=== PATIENT | male | born 1940 | race American Indian/Alaskan Native ===

== ENCOUNTER → 2017-12-08 14:02 | Outpatient (CLI) | payer MEDICARE, SELFPAY ==
--- NOTE | 2017-12-08 14:09 | DI.RAD.S_ITS ---
PROCEDURE: XR LUMBAR SPINE MIN 4V INDICATIONS: Right hip pain and low back pain TECHNIQUE: 5 views of the lumbar spine acquired. COMPARISON: None. FINDINGS: Bones: 5 nonrib-bearing vertebrae are present. There is normal bony alignment with flexion and extension imaging. No vertebral body compression fractures. No suspicious bony lesions. Soft tissues: Overlying bowel gas pattern is normal. No suspicious soft tissue calcifications. Flexion/extension: There is normal range of motion, with preserved normal alignment. IMPRESSION: Moderate degenerative disc disease is present from L2 inferiorly, most pronounced at L3 through S1. Significant spinal and foraminal stenosis would be expected and this may explain right-sided hip pain assuming nerve root impingement with radiculopathy projecting to the right hip. Dictated by: Trevor Peña M.D. on 12/08/2017 at 15:21 Approved by: Trevor Peña M.D. on 12/08/2017 at 15:23
--- NOTE | 2017-12-08 14:09 | DI.RAD.S_ITS ---
PROCEDURE: XR HIP W PEL IF DONE RT 2V INDICATIONS: Right hip pain TECHNIQUE: 4 views of the hip were acquired. COMPARISON: [facility], CR, [id number] W PEL IF PERFORMED, 08/20/2015, 11:48. FINDINGS: Bones: No fractures or dislocations but there is moderate degenerative hip joint osteoarthritis on the right, and only mild such degeneration on the left. No suspicious bony lesions. The visualized pelvic ring appears intact. Soft tissues: No suspicious soft tissue calcifications or masses. IMPRESSION: Asymmetric right greater than left hip joint osteoarthritis, moderate on the right and mild on the left. No trauma found. Dictated by: Trevor Peña M.D. on 12/08/2017 at 15:20 Approved by: Trevor Peña M.D. on 12/08/2017 at 15:21
== END ==
PROVIDERS: Family Provider Physician Assistant; PCP Physician Assistant; Visit Provider Physician Assistant
DX: M16.0 Bilateral primary osteoarthritis of hip (principal); M51.36 Other intervertebral disc degeneration, lumbar region; M51.37 Other intervertebral disc degeneration, lumbosacral region; M48.061 Spinal stenosis, lumbar region without neurogenic claudication; M99.73 Connective tissue and disc stenosis of intervertebral foramina of lumbar region
CPT/HCPCS: 72110; 73502

== ENCOUNTER → 2018-01-08 17:06 | Outpatient (CLI) | payer MEDICARE, SELFPAY ==
--- NOTE | 2018-01-08 17:09 | DI.MRI.S_ITS ---
PROCEDURE: MR LUMBAR SPINE WO CON INDICATIONS: Low back pain radiating into R hip - Abnormal Xray LS spine TECHNIQUE: Noncontrast sagittal T1 spin echo and T2 fast echo, sagittal STIR, axial T1 and T2 fast spin echo through the lumbar spine. In cases with scoliosis, additional coronal T2 fast spin echo may be performed. COMPARISON: [facility], CR, XR LUMBAR SPINE MIN 4V, 12/08/2017, 13:53. FINDINGS: Image quality: Excellent. Alignment and Curvature: There is straightening of normal lumbar curvature. There is trace retrolithesis of L3 on L4, L4 on L5 and L5 on S1. Bone Marrow: Marrow is of normal overall signal. No acute vertebral body compression fractures. Prominent anterior osteophytes are present L2, L3, L4. Spinal Cord: Conus medullaris terminates at the L1 level. Visualized cord demonstrates normal signal and size. Paraspinous Soft Tissues: No paravertebral masses. Multiple T2 hyperintensities are present within the kidneys bilaterally, consistent with cysts, as well as parapelvic cysts. Moderate to severe dessication is present throughout the lumbar spine, most notable at L3-4, L4-5. L1-L2: Mild disc bulge without spinal stenosis. Mild facet and ligamentum flavum hypertrophy. Mild bilateral foraminal narrowing. L2-L3: Mild disc bulge including a right foraminal component. There is no spinal stenosis. Mild facet and ligamentum flavum hypertrophy. Mild bilateral foraminal narrowing. L3-L4: Mild disc bulge with mild to moderate spinal stenosis. There is moderate to severe right and moderate left foraminal narrowing with facet hypertrophy. L4-L5: Mild disc bulge with mild spinal stenosis. There is severe bilateral foraminal narrowing, right greater than left with facet and ligamentum flavum hypertrophy. L5-S1: Mild disc bulge including a right foraminal component. No spinal stenosis. There is severe bilateral foraminal narrowing with mild nerve root flattening bilaterally. Facet hypertrophy is present. IMPRESSION: 1. Multilevel disc bulges. 2. Multilevel spinal stenosis possible L3-4 secondary to disc bulge with contributing affective retrolisthesis. 3. Multilevel prominent foraminal narrowing severe at L4-5. This is predominantly secondary to facet arthropathy with contributing effect of retrolisthesis. Dictated by: Silvia Mosley M.D. on 01/11/2018 at 11:15 Approved by: Silvia Mosley M.D. on 01/11/2018 at 11:53
== END ==
PROVIDERS: Family Provider Physician Assistant; PCP Physician Assistant; Visit Provider Physician Assistant
DX: M54.5 Low back pain (principal); M51.26 Other intervertebral disc displacement, lumbar region; M48.061 Spinal stenosis, lumbar region without neurogenic claudication
CPT/HCPCS: 72148

== ENCOUNTER → 2018-06-14 07:09 | Outpatient (CLI) | payer MEDICARE, SELFPAY ==
[2018-06-14 08:51] LABS: Alanine Aminotransferase 84 IU/L (21-72); Albumin 4.4 g/dL (3.5-5.0); Albumin Globulin Ratio 1.4 (1.0-2.8); Alkaline Phosphatase 56 U/L (38-126); Aspartate Aminotransferase 58 IU/L (17-59); BUN Creatinine Ratio 17.5 (6-22); Bilirubin Total 0.8 mg/dL (0.2-1.3); Blood Urea Nitrogen 14 mg/dL (9-20); Calcium 9.2 mg/dL (8.4-10.2); Carbon Dioxide 25 mmol/L (22-32); Chloride 103 mmol/L (98-107); Cholesterol 134 mg/dL (140-199); Estimated Glomerular Filt Rate > 60.0 mL/min (>60); Globulin 3.2 g/dL (1.7-4.1); Glucose 88 mg/dL (80-110); HDL Cholesterol 23 mg/dL (40-60); HEMOLYSIS < 15 (0-50); LDL Cholesterol Calculated 41 mg/dL (<100); Potassium 3.9 mmol/L (3.4-5.1); Sodium 142 mmol/L (137-145); Total Protein 7.6 g/dL (6.3-8.2); Triglycerides 349 mg/dL (35-150)
== END ==
PROVIDERS: PCP Physician Assistant; Visit Provider Physician Assistant
DX: E78.2 Mixed hyperlipidemia (principal); I10 Essential (primary) hypertension
CPT/HCPCS: 36415; 80053; 80061

== ENCOUNTER → 2018-11-22 06:48 | Outpatient (CLI) | payer MEDICARE, SELFPAY ==
[2018-11-22 08:52] LABS: Alanine Aminotransferase 122 IU/L (21-72); Albumin 4.2 g/dL (3.5-5.0); Albumin Globulin Ratio 1.6 (1.0-2.8); Alkaline Phosphatase 52 U/L (38-126); Aspartate Aminotransferase 71 IU/L (17-59); BUN Creatinine Ratio 12.2 (6-22); Bilirubin Total 0.9 mg/dL (0.2-1.3); Blood Urea Nitrogen 11 mg/dL (9-20); Calcium 9.4 mg/dL (8.4-10.2); Carbon Dioxide 28 mmol/L (22-32); Chloride 103 mmol/L (98-107); Cholesterol 132 mg/dL (140-199); Estimated Glomerular Filt Rate > 60.0 mL/min (>60); Globulin 2.7 g/dL (1.7-4.1); Glucose 95 mg/dL (80-110); HDL Cholesterol 23 mg/dL (40-60); HEMOLYSIS < 15 (0-50); LDL Cholesterol Calculated 43 mg/dL (<100); Potassium 4.2 mmol/L (3.4-5.1); Sodium 140 mmol/L (137-145); Total Protein 6.9 g/dL (6.3-8.2); Triglycerides 331 mg/dL (35-150)
[2018-11-22 10:23] LABS: Creatinine Urine Random 204.6 mg/dL
[2018-11-22 10:27] LABS: Microalbumi Creatinin Ratio Ur 17.1 ug/mg CR (<30); Microalbumin Urine Random 3.5 mg/dL (0-1.6)
== END ==
PROVIDERS: PCP Physician Assistant; Visit Provider Physician Assistant
DX: E78.1 Pure hyperglyceridemia (principal); I10 Essential (primary) hypertension
CPT/HCPCS: 36415; 80053; 80061; 82043; 82570

== ENCOUNTER → 2018-12-23 08:43 | Outpatient (CLI) | payer MEDICARE, SELFPAY ==
--- NOTE | 2018-12-23 08:49 | DI.RAD.S_ITS ---
PROCEDURE: XR CHEST 2V INDICATIONS: right sided back pain - persistant TECHNIQUE: 2 views of the chest were acquired. COMPARISON: [facility], CHEST 1 VIEW, 10/29/2012, 16:17. [facility], CHEST 2 VIEW, 10/14/2011, 8:27. FINDINGS: Surgical changes and devices: None. Lungs and pleura: Lungs are clear. No pleural effusions or pneumothorax. Mediastinum: Mediastinal contours are normal. Heart size is normal. Bones and chest wall: No suspicious bony abnormalities. Soft tissues appear unremarkable. IMPRESSION: Normal for age. Source of pain is not seen. Dictated by: Trevor Peña M.D. on 12/23/2018 at 10:22 Approved by: Trevor Peña M.D. on 12/23/2018 at 10:22
--- NOTE | 2018-12-23 08:49 | DI.RAD.S_ITS ---
PROCEDURE: XR THORACIC SPINE 3V INDICATIONS: right lateral thoracic pain just distal to scapula TECHNIQUE: 3 views of the thoracic spine were acquired. COMPARISON: [facility], CR, CERVICAL SPINE 2 OR 3 VIEWS, 10/27/2016, 7:27. [facility], CR, XR CERVICAL SPINE 2 OR 3 VIEWS, 10/14/2017, 8:41. [facility], CR, XR CHEST 2V, 12/23/2018, 8:53. FINDINGS: Bones: No fractures or dislocations. No suspicious bony lesions. 12 pairs of ribs are noted, and appear intact where visualized. There is moderate degenerative disc disease along the thoracic spine but no sign of compression fracture or subluxation. Soft tissues: No paravertebral stripe thickening. IMPRESSION: Moderate thoracic spine chronic appearing degenerative disc disease and facet osteoarthritis, with no specific site of acute abnormality that would indicate source of new pain. Depending on clinical status followup by MR scanning may be warranted. Dictated by: Trevor Peña M.D. on 12/23/2018 at 10:20 Approved by: Trevor Peña M.D. on 12/23/2018 at 10:22
== END ==
PROVIDERS: PCP Physician Assistant; Visit Provider Physician Assistant
DX: M54.9 Dorsalgia, unspecified (principal); M51.34 Other intervertebral disc degeneration, thoracic region; M47.814 Spondylosis without myelopathy or radiculopathy, thoracic region
CPT/HCPCS: 71046; 72072

== ENCOUNTER → 2019-04-20 07:02 | Outpatient (CLI) | payer MEDICARE, SELFPAY ==
[2019-04-20 08:39] LABS: Add Manual Diff / Slide Review NO; Basophils Absolute Auto 0 /uL (0-100); Basophils Percent Auto 0.4 % (0-2); Eosinophils Absolute Auto 100 /uL (0-450); Eosinophils Percent Auto 1.7 % (2-4); Hematocrit 40.9 % (41-53); Hemoglobin 14.3 g/dL (13.5-17.5); Lymphocytes Absolute Auto 2600 /uL (1100-4500); Lymphocytes Percent Auto 53.3 % (25-40); Mean Corpuscular HGB Conc 34.9 % (30-36); Mean Corpuscular Hemoglobin 32.1 PG (26-34); Mean Corpuscular Volume 91.9 fL (80-100); Monocytes Absolute Auto 500 /uL (0-900); Neutrophils Absolute Auto 1700 /uL (1500-7000); Neutrophils Percent Auto 33.6 % (50-75); Platelet Count 166 X10^3/uL (150-400); Red Blood Cell Count 4.45 X10^6/uL (4.5-5.9); Red Cell Distribution Width 14.5 % (11.6-14.8)
[2019-04-20 09:41] LABS: Alanine Aminotransferase 87 IU/L (21-72); Albumin 4.2 g/dL (3.5-5.0); Albumin Globulin Ratio 1.4 (1.0-2.8); Alkaline Phosphatase 58 U/L (38-126); Aspartate Aminotransferase 58 IU/L (17-59); Bilirubin Total 0.8 mg/dL (0.2-1.3); Bilirubin Unconjugated 0.6 mg/dL (0.0-1.1); Cholesterol 105 mg/dL (140-199); HDL Cholesterol 22 mg/dL (40-60); HEMOLYSIS < 15 (0-50); LDL Cholesterol Calculated 29 mg/dL (<100); Total Protein 7.2 g/dL (6.3-8.2); Triglycerides 269 mg/dL (35-150)
[2019-04-20 09:45] LABS: Creatinine Urine Random 193.5 mg/dL; Microalbumi Creatinin Ratio Ur 10.3 ug/mg CR (<30)
== END ==
PROVIDERS: PCP Physician Assistant; Visit Provider Physician Assistant
DX: E78.1 Pure hyperglyceridemia (principal); I10 Essential (primary) hypertension; R74.8 Abnormal levels of other serum enzymes; R79.89 Other specified abnormal findings of blood chemistry
CPT/HCPCS: 36415; 80061; 80076; 82043; 82570; 85025

== ENCOUNTER → 2019-06-21 07:38 | Outpatient (CLI) | payer MEDICARE, SELFPAY ==
[2019-06-21 09:23] LABS: Alanine Aminotransferase 97 IU/L (<50); Albumin 4.3 g/dL (3.5-5.0); Albumin Globulin Ratio 1.3 (1.0-2.8); Alkaline Phosphatase 59 U/L (38-126); Aspartate Aminotransferase 65 IU/L (17-59); BUN Creatinine Ratio 16.7 (6-22); Bilirubin Total 0.8 mg/dL (0.2-1.3); Blood Urea Nitrogen 15 mg/dL (9-20); Calcium 9.5 mg/dL (8.4-10.2); Carbon Dioxide 28 mmol/L (22-32); Chloride 102 mmol/L (98-107); Cholesterol 149 mg/dL (140-199); Estimated Glomerular Filt Rate > 60.0 mL/min (>60); Globulin 3.4 g/dL (1.7-4.1); Glucose 88 mg/dL (80-110); HDL Cholesterol 23 mg/dL (40-60); HEMOLYSIS < 15 (0-50); LDL Cholesterol Calculated 62 mg/dL (<100); Potassium 3.9 mmol/L (3.4-5.1); Sodium 138 mmol/L (137-145); Total Protein 7.7 g/dL (6.3-8.2); Triglycerides 321 mg/dL (35-150)
== END ==
PROVIDERS: PCP Physician Assistant; Visit Provider Physician Assistant
DX: E78.1 Pure hyperglyceridemia (principal); I10 Essential (primary) hypertension
CPT/HCPCS: 36415; 80053; 80061

== ENCOUNTER → 2020-03-15 07:08 | Outpatient (CLI) | payer MEDICARE, SELFPAY ==
[2020-03-15 08:43] LABS: Alanine Aminotransferase 115 IU/L (<50); Albumin 4.1 g/dL (3.5-5.0); Albumin Globulin Ratio 1.4 (1.0-2.8); Alkaline Phosphatase 57 U/L (38-126); Aspartate Aminotransferase 75 IU/L (17-59); BUN Creatinine Ratio 16.3 (6-22); Bilirubin Total 0.9 mg/dL (0.2-1.3); Blood Urea Nitrogen 15 mg/dL (9-20); Calcium 9.3 mg/dL (8.4-10.2); Carbon Dioxide 26 mmol/L (22-32); Chloride 106 mmol/L (98-107); Cholesterol 118 mg/dL (140-199); Estimated Glomerular Filt Rate > 60.0 mL/min (>60); Globulin 2.9 g/dL (1.7-4.1); Glucose 89 mg/dL (80-110); HDL Cholesterol 21 mg/dL (40-60); HEMOLYSIS < 15 (0-50); LDL Cholesterol Calculated 32 mg/dL (<100); Potassium 4.1 mmol/L (3.4-5.1); Sodium 140 mmol/L (137-145); Triglycerides 323 mg/dL (35-150)
[2020-03-15 09:04] LABS: Free T3, Triiodothyronine Free 3.32 pg/mL (2.77-5.27)
[2020-03-15 09:13] LABS: Prostate Specific Antigen 0.521 ng/mL (0.10-4.00)
[2020-03-15 09:18] LABS: Thyroid Stimulating Hormone 3.39 uIU/mL (0.47-4.68)
[2020-03-15 09:20] LABS: Creatinine Urine Random 210.7 mg/dL
[2020-03-15 09:24] LABS: Microalbumi Creatinin Ratio Ur 14.2 ug/mg CR (<30)
== END ==
PROVIDERS: PCP Nurse Practitioner; Referring Provider Nurse Practitioner; Visit Provider Nurse Practitioner
DX: E78.1 Pure hyperglyceridemia (principal); G47.33 Obstructive sleep apnea (adult) (pediatric); I10 Essential (primary) hypertension; N40.0 Benign prostatic hyperplasia without lower urinary tract symptoms; Z79.899 Other long term (current) drug therapy
CPT/HCPCS: 36415; 80053; 80061; 82043; 82570; 84153; 84439; 84443; 84481

== ENCOUNTER → 2020-06-05 07:12 | Outpatient (CLI) | payer MEDICARE, SELFPAY ==
[2020-06-05 09:09] LABS: Alanine Aminotransferase 79 IU/L (<50); Albumin 4.1 g/dL (3.5-5.0); Albumin Globulin Ratio 1.2 (1.0-2.8); Alkaline Phosphatase 58 U/L (38-126); Aspartate Aminotransferase 51 IU/L (17-59); Bilirubin Total 0.6 mg/dL (0.2-1.3); Bilirubin Unconjugated 0.5 mg/dL (0.0-1.1); Cholesterol 138 mg/dL (140-199); Globulin 3.4 g/dL (1.7-4.1); HDL Cholesterol 23 mg/dL (40-60); HEMOLYSIS < 15 (0-50); LDL Cholesterol Calculated 59 mg/dL (<100); Total Protein 7.5 g/dL (6.3-8.2); Triglycerides 282 mg/dL (35-150)
[2020-06-05 09:22] LABS: Creatinine Urine Random 215.2 mg/dL
[2020-06-05 09:27] LABS: Microalbumi Creatinin Ratio Ur 14.8 ug/mg CR (<30); Microalbumin Urine Random 3.2 mg/dL (0-1.6)
== END ==
PROVIDERS: PCP Nurse Practitioner; Referring Provider Nurse Practitioner; Visit Provider Nurse Practitioner
DX: B35.1 Tinea unguium (principal); I10 Essential (primary) hypertension; Z79.899 Other long term (current) drug therapy
CPT/HCPCS: 36415; 80061; 80076; 82043; 82570

== ENCOUNTER → 2020-06-19 15:23 | Outpatient (CLI) | payer MEDICARE, SELFPAY ==
--- NOTE | 2020-06-19 15:25 | DI.RAD.S_ITS ---
PROCEDURE: XR KNEE LT 3V INDICATIONS: left knee pain TECHNIQUE: 3 views of the knee were acquired. COMPARISON: [facility], , KNEE 3V RIGHT, 08/04/2014, 12:15. FINDINGS: Bones: No fractures or dislocations. No suspicious bony lesions. Knee joint space narrowing is prominent at the medial compartment where near [id number] articulation is present. It is mild to moderate at the patellofemoral joint, each facet. It is minimal at the lateral compartment. Soft tissues: No joint effusion. No suspicious soft tissue calcifications. IMPRESSION: Tricompartmental knee joint osteoarthritis near severe at the medial compartment at the left knee. No effusion or loose body is found. Dictated by: Trevor Peña M.D. on 06/19/2020 at 16:23 Approved by: Trevor Peña M.D. on 06/19/2020 at 16:24
== END ==
PROVIDERS: PCP Nurse Practitioner; Referring Provider Registered Nurse; Visit Provider Registered Nurse
DX: M25.562 Pain in left knee (principal); M17.12 Unilateral primary osteoarthritis, left knee
CPT/HCPCS: 73562

== ENCOUNTER → 2020-09-12 07:11 | Outpatient (CLI) | payer MEDICARE, SELFPAY ==
[2020-09-12 08:52] LABS: Alanine Aminotransferase 51 IU/L (<50); Albumin Globulin Ratio 1.4 (1.0-2.8); Alkaline Phosphatase 52 U/L (38-126); Aspartate Aminotransferase 40 IU/L (17-59); BUN Creatinine Ratio 19.1 (6-22); Bilirubin Total 0.5 mg/dL (0.2-1.3); Blood Urea Nitrogen 17 mg/dL (9-20); Calcium 9.1 mg/dL (8.4-10.2); Carbon Dioxide 27 mmol/L (22-32); Chloride 105 mmol/L (98-107); Cholesterol 94 mg/dL (140-199); Estimated Glomerular Filt Rate > 60.0 mL/min (>60); Globulin 2.9 g/dL (1.7-4.1); Glucose 105 mg/dL (80-110); HDL Cholesterol 22 mg/dL (40-60); HEMOLYSIS < 15 (0-50); LDL Cholesterol Calculated 26 mg/dL (<100); Potassium 3.8 mmol/L (3.4-5.1); Sodium 138 mmol/L (137-145); Total Protein 6.9 g/dL (6.3-8.2); Triglycerides 231 mg/dL (35-150)
== END ==
PROVIDERS: PCP Nurse Practitioner; Referring Provider Nurse Practitioner; Visit Provider Nurse Practitioner
DX: E78.1 Pure hyperglyceridemia (principal); I10 Essential (primary) hypertension; R79.89 Other specified abnormal findings of blood chemistry; Z79.899 Other long term (current) drug therapy
CPT/HCPCS: 36415; 80053; 80061

== ENCOUNTER → 2020-10-08 13:46 | Outpatient (CLI) | payer MEDICARE, SELFPAY ==
[2020-10-08 13:56] LABS: Bacteria Urine None Seen; RBC Urine None Seen (0-5/HPF); WBC Urine None Seen (0-5/HPF)
[2020-10-08 14:17] LABS: Add Manual Diff / Slide Review NO; Basophils Absolute Auto 0 /uL (0-100); Basophils Percent Auto 0.9 % (0-2); Eosinophils Absolute Auto 100 /uL (0-450); Eosinophils Percent Auto 2.4 % (2-4); Hematocrit 39.1 % (41-53); Hemoglobin 13.7 g/dL (13.5-17.5); Lymphocytes Absolute Auto 2000 /uL (1100-4500); Lymphocytes Percent Auto 39.2 % (25-40); Mean Corpuscular Volume 91.3 fL (80-100); Monocytes Absolute Auto 700 /uL (0-900); Monocytes Percent Auto 12.9 % (3-14); Neutrophils Absolute Auto 2300 /uL (1500-7000); Neutrophils Percent Auto 44.6 % (50-75); Platelet Count 175 X10^3/uL (150-400); Red Blood Cell Count 4.29 X10^6/uL (4.5-5.9); Red Cell Distribution Width 14.7 % (11.6-14.8); White Blood Cell Count 5.1 X10^3/uL (4.5-11.0)
[2020-10-08 14:21] LABS: Appearance Urine UA CLEAR; Bilirubin Urine UA NEGATIVE (NEGATIVE); Color Urine UA YELLOW; Glucose Urine UA NEGATIVE (Negative); Ketones Urine UA NEGATIVE (NEGATIVE); Leukocyte Esterase Urine UA NEGATIVE (NEGATIVE); Nitrite Urine UA NEGATIVE (Negative); Occult Blood Urine UA NEGATIVE (Negative); Protein Urine UA NEGATIVE (Negative); Urobilinogen Urine UA 0.2 E.U./dL (0.2)
[2020-10-08 14:37] LABS: Culture Indicated Urine Cult Not Indicated; Urine Comments Microscopic Normal
[2020-10-08 14:55] LABS: Alanine Aminotransferase 48 IU/L (<50); Albumin 4.2 g/dL (3.5-5.0); Albumin Globulin Ratio 1.5 (1.0-2.8); Alkaline Phosphatase 54 U/L (38-126); Aspartate Aminotransferase 39 IU/L (17-59); Bilirubin Total 0.6 mg/dL (0.2-1.3); Bilirubin Unconjugated 0.7 mg/dL (0.0-1.1); Cholesterol 89 mg/dL (140-199); Globulin 2.8 g/dL (1.7-4.1); HDL Cholesterol 21 mg/dL (40-60); HEMOLYSIS < 15 (0-50); LDL Cholesterol Calculated -2 mg/dL (<100); Triglycerides 351 mg/dL (35-150)
[2020-10-08 14:59] LABS: Alanine Aminotransferase 48 IU/L (<50); Albumin 4.2 g/dL (3.5-5.0); Albumin Globulin Ratio 1.5 (1.0-2.8); Alkaline Phosphatase 53 U/L (38-126); Aspartate Aminotransferase 40 IU/L (17-59); BUN Creatinine Ratio 18.6 (6-22); Bilirubin Total 0.6 mg/dL (0.2-1.3); Blood Urea Nitrogen 16 mg/dL (9-20); Calcium 9.4 mg/dL (8.4-10.2); Carbon Dioxide 27 mmol/L (22-32); Chloride 104 mmol/L (98-107); Estimated Glomerular Filt Rate > 60.0 mL/min (>60); Globulin 2.8 g/dL (1.7-4.1); Glucose 94 mg/dL (80-110); HEMOLYSIS < 15 (0-50); Potassium 4.3 mmol/L (3.4-5.1); Sodium 138 mmol/L (137-145)
== END ==
PROVIDERS: PCP Nurse Practitioner; Referring Provider Registered Nurse; Visit Provider Registered Nurse
DX: M54.5 Low back pain (principal); R79.89 Other specified abnormal findings of blood chemistry; R35.0 Frequency of micturition; E78.1 Pure hyperglyceridemia; Z79.899 Other long term (current) drug therapy
CPT/HCPCS: 36415; 80053; 80061; 80076; 81001; 85025

== ENCOUNTER → 2020-10-10 07:06 | Outpatient (CLI) | payer MEDICARE, SELFPAY ==
--- NOTE | 2020-10-10 07:07 | DI.US.S_ITS ---
PROCEDURE: US RENAL COMPLETE INDICATIONS: LOWER RIGHT BACK PAIN TECHNIQUE: Real-time scanning was performed of the kidneys and bladder, with image documentation. COMPARISON: None. FINDINGS: Kidneys: Right kidney not well seen secondary to body habitus.. Right kidney measures 12.7 cm long; left kidney measures 13.1 cm long. Right renal cortical thickness is 1.3 cm; left renal cortical thickness is 1.5 cm. Renal cortical echotexture is normal. Mild right hydronephrosis. Moderate left hydronephrosis. No renal calculi. Left renal cyst measuring 2.8 x 2.2 x 3.7 cm and 1.8 x 1.3 x 2.3 cm, with simple appearance. No suspicious solid mass lesions. Bladder: Bladder was not distended at the time of the examination therefore not evaluated Miscellaneous: No free pelvic fluid. IMPRESSION: Mild right and moderate left hydronephrosis No sonographically visible renal calculus. CT KUB could be performed as clinically necessary. Simple appearing left renal cyst Dictated by: Chinedu Gutierrez M.D. on 10/10/2020 at 10:23 Approved by: Chinedu Gutierrez M.D. on 10/10/2020 at 10:29
== END ==
PROVIDERS: PCP Nurse Practitioner; Referring Provider Registered Nurse; Visit Provider Registered Nurse
DX: N13.30 Unspecified hydronephrosis (principal); N28.1 Cyst of kidney, acquired
CPT/HCPCS: 76770

== ENCOUNTER → 2020-10-11 11:59 | Outpatient (CLI) | payer MEDICARE, SELFPAY ==
--- NOTE | 2020-10-11 12:16 | DI.CT.S_ITS ---
PROCEDURE: CT KIDNEY URETER BLADDER (KUB) INDICATIONS: f/u abnormal US TECHNIQUE: Noncontrast 5 mm thick sections acquired from the diaphragms to the symphysis. 5 mm thick coronal and sagittal reformats were then performed. For radiation dose reduction, the following was used: automated exposure control, adjustment of mA and/or kV according to patient size. COMPARISON: [facility], , US RENAL COMPLETE, 10/10/2020, 7:27. FINDINGS: Image quality: Excellent. Lung bases: Right middle lobe and lingular atelectasis. Heart size is normal. Small hiatal hernia. Urinary system: Bilateral hydronephrosis, moderate on the left and mild on the right. Ureters are normal in caliber. The CT findings are suspicious for ureterovesical junction obstruction. Small nonobstructive renal calculi are seen in left kidney. There is 9 mm calcification in the superior pole of the right kidney. Both ureters appear non-dilated throughout their expected courses. Bladder wall thickness is normal; no calcified bladder stones. Other solid organs: Liver is normal in size. Gallbladder contains gallstones. Pancreas is normal in contours. Spleen is normal in size. No adrenal nodules. Peritoneum and bowel: Unenhanced bowel loops demonstrate normal wall thickness and caliber. Scattered colonic diverticula. No diverticulitis. Moderate amount of stool in colon. Normal appendix. No free fluid or air. Nodes and vessels: No retroperitoneal or mesenteric adenopathy by size criteria. Aorta and inferior vena cava are normal in caliber. Abdominal wall: No ventral hernias. Pelvis: No free pelvic fluid. No inguinal hernias or adenopathy. Small inguinal hernias are present bilaterally with fatty john, likely reactive. Bones: No suspicious bony lesions. No vertebral body compression fractures. Degenerative changes in lumbar spine. IMPRESSION: 1. 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 Recommend urological consultation. Radionuclide renogram may be helpful. 2. Nonobstructive renal calculi in left kidney. 3. There is a 9 mm cortical calcification in right kidney. 4. Cholelithiasis. 5. Diverticulosis without diverticulitis. Dictated by: Yu Norris M.D. on 10/11/2020 at 12:45 Approved by: Yu Norris M.D. on 10/11/2020 at 12:51
== END ==
PROVIDERS: PCP Nurse Practitioner; Referring Provider Nurse Practitioner; Visit Provider Nurse Practitioner
DX: R93.89 Abnormal findings on diagnostic imaging of other specified body structures (principal); N20.0 Calculus of kidney; K80.20 Calculus of gallbladder without cholecystitis without obstruction; K57.90 Diverticulosis of intestine, part unspecified, without perforation or abscess without bleeding
CPT/HCPCS: 74176

== ENCOUNTER → 2020-10-24 08:13 | Outpatient (CLI) | payer MEDICARE, SELFPAY ==
--- NOTE | 2020-10-24 | DI.NM.S_ITS ---
PROCEDURE: NM RENAL FUNCTION W LASIX RADIOPHARMACEUTICAL: 10.1 mCi Tc-99m MAG3 IV and 40 mg furosemide IV. INDICATIONS: Unspecified hydronephrosis TECHNIQUE: The patient was hydrated orally before the examination was begun. After intravenous administration of Tc-99m MAG3, posterior abdominal radionuclide angiogram and sequential (1 minute each frame) renal images were obtained. A time-activity curve for each kidney was generated and analyzed. To evaluate for obstruction, the patient was given 40 mg furosemide via slow intravenous injection after the start of the examination. Sequential images were obtained for up to an additional 20 minutes. COMPARISON: [facility], MR, MR LUMBAR SPINE WO CON, 01/08/2018, 17:15. [facility], US, US RENAL COMPLETE, 10/10/2020, 7:27. [facility], CT, CT KIDNEY URETER BLADDER (KUB), 10/11/2020, 12:14. FINDINGS: Perfusion: There is normal vascular flow to both kidneys. Morphology: Both kidneys are normal in size and shape. Renal pelvis is moderately dilated bilaterally. The ureters and bladder fill with tracer, and appear normal. Function: Both kidneys demonstrate mildly delayed cortical tracer uptake, with [id number] activity ranging from 8.5 minutes for right kidney and 8.0 minutes for left kidney (normal values are 3-5 minutes). The right kidney contributes 55% of total renal function. The left kidney contributes 45% of total renal function. Lasix stimulation: On pre-Lasix activity curve, the calculated T1/2 for the right kidney is 14 minutes and the T1/2 for the left kidney is 11 minutes. After diuretic administration, there is prompt clearance of tracer activity from the renal collecting systems in both kidneys initially with quick tapering of tracer clearance. The half-time of emptying of tracer activity from the right pelvicaliceal system (T1/2) is 8 minutes (based on the slope of the activity curve). The half-time of emptying from the left pe T1/2 lvicaliceal system (T1/2) is 6 minutes. Normal emptying half-times are less than 10 minutes; borderline ranges are from 10 to 20 minutes. IMPRESSION: 1. Moderate hydronephrosis bilaterally. Activities can be seen within ureters fairly early. Ureters are normal in caliber. 2. There is mildly decreased renal function bilaterally with slightly delayed cortical uptake and excretion with mildly prolonged cortical accumulation of tracer activity. 3. Right kidney contributes 55% of total renal function and left kidney contributes 45% of total renal function. 4. Borderline delayed emptying of urinary activity from the renal pelvis bilaterally, consistent with mild degree of UPJ obstruction. Dictated by: uY Norris M.D. on 10/24/2020 at 11:07 Approved by: Yu Norris M.D. on 10/24/2020 at 11:58
== END ==
PROVIDERS: PCP Nurse Practitioner; Referring Provider Student in an Organized Health Care Education/Training Program; Visit Provider Student in an Organized Health Care Education/Training Program
DX: N13.30 Unspecified hydronephrosis (principal)
CPT/HCPCS: 78708; A9562

== ENCOUNTER → 2021-02-01 08:36 | Outpatient (CLI) | payer MEDICARE, SELFPAY ==
[2021-02-01 10:39] LABS: COVID19 -Nasal RAPID Negative (Negative)
== END ==
PROVIDERS: PCP Nurse Practitioner; Visit Provider Surgery
DX: Z20.822 Contact with and (suspected) exposure to COVID-19 (principal)
CPT/HCPCS: 87635; C9803

== ENCOUNTER 2021-02-04 12:43 | Day surgery (SDC) | payer MEDICARE, SELFPAY ==
--- NOTE | 2021-02-04 | PATH_ITS ---
[facility] Accession Number: [id number] . 01 Material submitted: . colon - ASCENDING COLON POLYP . 01 Clinical history: . SDC . 02 Diagnosis: Ascending Colon Polyp, Biopsy: Tubular adenoma. MRV 02/07/2021 1053 Local . 02 Electronically signed: . Jaycob Mancilla MD, PhD, Pathologist NPI- [id number] . 01 Gross description: . ASCENDING COLON POLYP: Received in formalin is 1 fragment(s) of chavez, soft tissue measuring 1.0 x 0.3 x 0.2 cm submitted entirely in 1 cassette(s) /TAMARA 02/05/2021 0225 Local . 02 Pathologist provided ICD-10: D12.2 . 02 CPT . 039213 Performed at: 01 [facility] [address] [id number] MD Matthew Mcgovern MD Phone: [phone] Performed at: 02 [facility] [place] [address] [place], [place] [id number] MD Mireya Ayala MD Phone: [phone]
[2021-02-04 13:09] VITALS: BP 119/75; PULSE 65; RESP 16; TEMP 36.2; O2SAT 99; BMI 36.2
[2021-02-04] MEDS: LACTATED RINGERS 1,000 ML 42 ML IV (13:21)
--- NOTE | 2021-02-04 13:28 | PM.HP.1 ---
History of Present Illness History of Present Illness Date Patient Seen: 02/04/21 Time Patient Seen: 13:28 Chief complaint: [facility] Narrative: screening colon cancer. this is his 3rd colonoscopy and polyps were found last time. Patient History Medical History Atrial fibrillation (~2013) Benign prostatic hyperplasia (10/13/11) Carpal tunnel syndrome (Unknown) Cervical spinal stenosis Chickenpox (Unknown) Elevated LFTs High triglycerides (Unknown) History of colonic polyps (10/13/11) Hypertension (Unknown) Left knee pain Macular degeneration Measles (Unknown) Mumps (Unknown) Nightmares Obstructive sleep apnea (08/09/14) Osteoarthritis (Unknown) 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) Rheumatic fever (Unknown) Right-sided thoracic back pain Shoulder pain (Unknown) Spinal stenosis (Unknown) Toenail fungus Surgical History History of carpal tunnel repair History of cataract removal with insertion of prosthetic lens History of cervical discectomy (10/2016) Status post arthroscopy Family & Social History Family History Brother CAD (coronary artery disease) Obesity Social History: household members spouse Tobacco & Substance use: Smoking Status Former smoker alcohol intake current alcohol intake frequency holiday/special occasion Substance Use Type does not use Meds Home Medications and Allergies Home Medications Medication Instructions Recorded Confirmed Type omega-3 fatty acids 1,000 mg 1,000 mg PO TID cap 02/03/20 02/04/21 History capsule vitamins A,C,L-eopy-bncxqr 14,320 1 cap PO QAM AND QPM 02/03/20 01/29/21 History unit-226 mg-200 unit capsule (PreserVision AREDS) doxazosin 2 mg tablet 2 mg PO HS #90 tab 08/07/20 02/04/21 Rx lisinopril 10 1 tab PO QDAY #90 tab 08/07/20 01/29/21 Rx mg-hydrochlorothiazide 12.5 mg tablet terbinafine HCl 250 mg tablet 250 mg PO DAILY #90 tab 09/21/20 01/29/21 Rx metoprolol tartrate 50 mg tablet 50 mg PO BID #180 tab 11/12/20 02/04/21 Rx rosuvastatin 5 mg tablet (Crestor) 5 mg PO DAILY #90 tab 01/14/21 02/04/21 Rx Allergies Allergy/AdvReac Type Severity Reaction Status Date / Time No Known Drug Allergies Allergy Verified 02/04/21 13:23 Review of Systems Review of Systems ROS: Yes All systems reviewed with the patient and are negative except as otherwise documented Exam Vital Signs (past 8 hours): - 02/04/21 13:09 Temperature 97.1 F L Pulse Rate 65 Respiratory Rate 16 Blood Pressure 119/75 Pulse Oximetry 99 Oxygen Delivery Method Room Air Const General: cooperative Nutritional Appearance: well nourished Orientation: alert and oriented x3 HENMT Head: normal to inspection Ears: hearing grossly impaired Nose: external nose normal Face and sinus: normal facial exam Eyes General: appearance normal, both eyes and all related structures Sclera: sclerae normal Neck Neck: trachea midline Resp Effort & Inspection: normal respiratory effort and able to speak in complete sentences Auscultation: clear to auscultation bilaterally Cardio Rate: regular rate Rhythm: abnormal rhythm GI Inspection: normal to inspection Neuro General: patient alert and patient oriented x3 Psych Appearance: grossly normal Judgment: judgment good Assessment & Plan Assessment & Plan narrative: h/o polyps. here for diagnostic colonoscopy with moderate sedation COVID-19 COVID-19 status: Negative Time Spent With Patient Time with patient: 15-24 minutes
[2021-02-04] MEDS: fentaNYL 250 MCG/5 ML INJ IV (13:49)
[2021-02-04] MEDS: MIDAZOLAM 5 MG/5 ML VIAL IV (13:49)
--- NOTE | 2021-02-04 13:57 | P.OP.ENDO_ITS ---
Operative Date/Time/Diagnoses Date of procedure: 02/04/21 Time of procedure: 13:57 Pre-op diagnosis: h/o colon polyps Post-op diagnosis: same Procedure & Clinicians Study performed: colonoscopy with cold forcep polypectomy Same procedure as scheduled: Yes Indications: h/o colon polyps Surgeon: Kia Hernandez Procedure Notes SCOAP/Timeout: done Procedure in detail: Preop diagnosis: History of colon polyps Postop diagnosis: Same Operative procedure: Colonoscopy with moderate sedation and cold forceps polypectomy Surgeon: Mariam Hernandez MD Anesthetic: Fentanyl and Versed, see nurse's note for dosing Findings: Single polyp in the ascending colon approximately 3 mm in size taken with cold forceps Procedure: Patient is placed in a lateral position. Rectal exam performed showing normal tone no masses. Colonoscope was inserted into the rectum and advanced to the ileocecal valve with minimal difficulty. Insufflation and extraction of the scope including retroflexed in the rectum had the above findi ngs. Impression: Single small polyp in the ascending colon 3 mm in size adenomatous in gross appearance. Plan: Repeat colonoscopy in 5 years. Scope withdrawal time: 5 Sedation minutes: 11 Findings: polyp Specimen(s): other (acsending colon polyp 3mm, cold forcep) Complications: none Post-procedure Recommendations: Colonscopy in 5 years Follow up: as needed Disposition: PACU
[2021-02-04 14:03] VITALS: BP 113/68; PULSE 67; RESP 14; TEMP 36.7; O2SAT 96
[2021-02-04 14:06] VITALS: BP 111/68; PULSE 67; RESP 12; O2SAT 95
[2021-02-04 14:11] VITALS: BP 109/73; PULSE 65; RESP 16; O2SAT 95
[2021-02-04 14:16] VITALS: BP 112/63; PULSE 73; RESP 14; TEMP 36.8; O2SAT 95
[2021-02-04 14:38] VITALS: BP 112/72; PULSE 62; RESP 16; O2SAT 97
--- NOTE | 2021-02-04 14:44 | SUR.PHASEII ---
pt given discharge instructions. pt states he understands discharge instructions. Pt received discharge instructions written. Pt denies any complaints of nausea and pain.
== END 2021-02-04 14:46 | disposition home or self-care (01) ==
PROVIDERS: Surgery; PCP Nurse Practitioner; Referring Provider Surgery; Visit Provider Surgery
PROC: 0DJD8ZZ Inspection of Lower Intestinal Tract, Via Natural or Artificial Opening Endoscopic (ICD-10-PCS; CPT 45378; principal; 2021-02-04 13:45)
DX: Z12.11 Encounter for screening for malignant neoplasm of colon (principal); Z86.010 Personal history of colon polyps; D12.2 Benign neoplasm of ascending colon
CPT/HCPCS: 45380; 99152; J2250; J3010

== ENCOUNTER 2021-04-27 19:27 | Emergency (ER) | payer MEDICARE, SELFPAY ==
[2021-04-27] VITALS (8 sets, daily range): BP systolic 130–165; BP diastolic 67–94; PULSE 61–68; RESP 22; TEMP 36.3; O2SAT 94–98; BMI 35.9
--- NOTE | 2021-04-27 19:53 | ED.EXTPRO ---
HPI - Extremity Problem General Chief complaint: Extremity Problem,Nontraumatic Stated complaint: R hip pain Time Seen by Provider: 04/27/21 19:44 Source: patient Mode of arrival: EMS History of Present Illness HPI Narrative: Patient is a 80-year-old male who is here for evaluation of right hip discomfort. Patient has had issues in his right hip and lower back and SI joint for some time now. Earlier this week he received a steroid injection into his right SI joint. Since that time he has had continued discomfort. No fevers. Has been on Tylenol ibuprofen without any improvement. Also has a prescription for tramadol but he states this has not helped either. Had a old prescription of hydrocodone/acetaminophen which he took which also did not improve his symptoms. He denies any fevers. Pain is located in his right hip and back of his right hip. Has no discomfort in his right leg. Movement makes his symptoms worse. Related Data Home Medications Medication Instructions Recorded Confirmed omega-3 fatty acids 1,000 mg 1,000 mg PO TID cap 02/03/20 02/04/21 capsule vitamins A,C,[id number]-[id number] 14,320 1 cap PO QAM AND QPM 02/03/20 03/28/21 unit-226 mg-200 unit capsule (PreserVision AREDS) Previous Rx's Medication Instructions Recorded terbinafine HCl 250 mg tablet 250 mg PO DAILY #90 tab 09/21/20 metoprolol tartrate 50 mg tablet 50 mg PO BID #180 tab 11/12/20 rosuvastatin 5 mg tablet (Crestor) 5 mg PO DAILY #90 tab 01/14/21 acetaminophen 500 mg tablet 1,000 mg PO TID PRN #90 tab 03/28/21 (Tylenol Extra Strength) benzonatate 100 mg capsule 100 mg PO BID-TID PRN #30 cap 03/28/21 (Tessalon Perles) doxycycline hyclate 100 mg tablet 100 mg PO BID #20 tab 03/28/21 guaifenesin 600 mg tablet, 600 mg PO BID #30 tab 03/28/21 extended release 12 hr ibuprofen 800 mg tablet 800 mg PO Q8H #90 tab 03/28/21 promethazine 6.25 mg/5 mL oral 6.25 mg PO BEDTIME #125 ml 04/03/21 syrup doxazosin 2 mg tablet See Rx Instructions .ROUTE 04/23/21 .COMPLEX #90 tab lisinopril 10 See Rx Instructions .ROUTE 04/23/21 mg-hydrochlorothiazide 12.5 mg .COMPLEX #90 tab tablet cyclobenzaprine 10 mg tablet 10 mg PO TID PRN #20 tab 04/27/21 oxycodone-acetaminophen 5 mg-325 1 tab PO Q4-6H PRN #20 tab 04/27/21 mg tablet (Percocet) Allergies Allergy/AdvReac Type Severity Reaction Status Date / Time No Known Drug Allergies Allergy Verified 04/27/21 19:36 Review of Systems Constitutional Constitutional: Denies fever(s) Gastrointestinal Gastrointestinal: Reports system reviewed and no additional complaints, except as documented Genitourinary Genitourinary: Reports system reviewed and no additional complaints, except as documented Musculoskeletal Musculoskeletal: Reports system reviewed and no additional complaints, except as documented and Reports as per HPI Integumentary/Breasts Skin/Breast: Reports system reviewed and no additional complaints, except as documented Hematologic/Lymphatic On Anticoagulants: No Patient History Medical History Atrial fibrillation (~2013) Benign prostatic hyperplasia (10/13/11) Carpal tunnel syndrome (Unknown) Cervical spinal stenosis Chickenpox (Unknown) Elevated LFTs High triglycerides (Unknown) History of colonic polyps (10/13/11) Hypertension (Unknown) Left knee pain Macular degeneration Measles (Unknown) Mumps (Unknown) Nightmares Obstructive sleep apnea (08/09/14) Osteoarthritis (Unknown) 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) Rheumatic fever (Unknown) Right-sided thoracic back pain Shoulder pain (Unknown) Spinal stenosis (Unknown) Toenail fungus Surgical History History of carpal tunnel repair History of cataract removal with insertion of prosthetic lens History of cervical discectomy (10/2016) Status post arthroscopy Family History Brother CAD (coronary artery disease) Obesity Social History household members: spouse Smoking Status: Former smoker second hand exposure: No alcohol intake: current substance use type: does not use Smoking Status: Former smoker alcohol intake frequency: holidays/special occasions only Substance Use Type: does not use Exam Initial Vital Signs Initial Vital Signs: Vital Signs Temperature 97.4 F L 04/27/21 19:30 Pulse Rate 61 04/27/21 19:30 Respiratory Rate 22 04/27/21 19:30 Blood Pressure 165/94 H 04/27/21 19:30 Pulse Oximetry 96 04/27/21 19:30 Resp Effort & Inspection: normal respiratory effort Cardio Rate: regular rate Back/Spine/Pelvis Thoracic/Lumbar Spine: No paraspinal tenderness and No lumbar spinal tenderness Sacroiliac Joints: tender to palpation right and pain elicited by passive hyperextension of lower extremity right Skin General: no rashes or lesions noted Neuro Sensory Exam: no sensory deficits noted Extrem Other: With tenderness the right lower extremity patient has no discomfort but with movement specifically flexion of his right hip who were able to reproduce the discomfort in his SI joint. Course Orders Ordered: Discontinued Medications Cyclobenzaprine HCl (Cyclobenzaprine 10 Mg Tablet) 10 mg PO NOW ONE Stop: 04/27/21 20:50 Last Admin: 04/27/21 20:54 Dose: 10 mg Documented by: MANI Cyclobenzaprine HCl (Cyclobenzaprine 10 Mg Prepack) 1 bottle MISC SEEINSTR ONE Stop: 04/27/21 21:43 Last Admin: 04/27/21 21:55 Dose: 1 bottle Documented by: DAKOTAH Hydromorphone HCl (Hydromorphone 1 Mg Inj) 1 mg IV NOW ONE Stop: 04/27/21 19:54 Last Admin: 04/27/21 20:06 Dose: 1 mg Documented by: KATHY Hydromorphone HCl (Hydromorphone 1 Mg Inj) 1 mg IV NOW ONE Stop: 04/27/21 21:43 Last Admin: 04/27/21 21:55 Dose: 1 mg Documented by: DAKOTAH Oxycodone/Acetaminophen (Oxycodone/Apap 5/325 Prepack) 1 bottle MISC SEEINSTR ONE Stop: 04/27/21 21:43 Last Admin: 04/27/21 21:55 Dose: 1 bottle Documented by: DAKOTAH Vital Signs Vital signs: Vital Signs - 8 hr 04/27/21 19:30 04/27/21 19:31 10/02/21 20:00 Temperature 97.4 F L Pulse Rate 61 67 64 Respiratory Rate 22 Blood Pressure 165/94 H 165/94 H Pulse Oximetry 96 98 96 04/27/21 20:01 04/27/21 20:30 04/27/21 21:00 Temperature Pulse Rate 66 67 61 Respiratory Rate Blood Pressure 143/70 H 141/83 H 130/72 Pulse Oximetry 96 96 94 04/27/21 21:30 04/27/21 22:00 Temperature Pulse Rate 61 68 Respiratory Rate Blood Pressure 135/67 143/70 H Pulse Oximetry 95 96 MDM - Extremity (Nontraumatic) MDM Narrative Medical decision making narrative: Based on his presentation today I have low suspicion for infection. Has minimal tenderness to palpation over the area but with any movement of his right lower extremity specifically flexion of his right hip he gets fairly extreme discomfort in the SI joint. I do suspect that this is made worse because of the steroid injection in the area earlier this week. Informed him that sometimes after these types of procedures the symptoms worsen before they improve. I do not feel that he needs any radiologic procedures here in the ER. Did receive some relief with medications prescribed here. He was given return precautions and follow-up instructions. He expressed understanding and agreement. Discharge Plan Departure Patient Disposition: Home Clinical Impression: Acute hip pain Instructions: Sacroiliac Joint Pain Activity Restrictions/Additional Instructions: Unfortunately other than trying to help with your symptoms there. Much more that can be done out of the emergency department. I recommend that on Thursday you contact your primary doctor for a follow-up. Return to the emergency department for any new or worsening symptoms. I do recommend that you continue with the acetaminophen/Tylenol as directed. Also continue with the ibuprofen/Motrin. I would recommend that you start taking a medicine called famotidine/Pepcid. You can purchase this medication [id number]. This medicine will help with preventing stomach ulcers because of the ibuprofen. Prescriptions: New cyclobenzaprine 10 mg tablet 10 mg PO TID PRN (Reason: muscle spasm) Qty: 20 RF: 0 oxycodone-acetaminophen [Percocet] 5-325 mg tablet 1 tab PO Q4-6H PRN (Reason: pain) Qty: 20 RF: 0 No Action terbinafine HCl 250 mg tablet 250 mg PO DAILY Qty: 90 RF: 1 metoprolol tartrate 50 mg tablet 50 mg PO BID Qty: 180 RF: 2 rosuvastatin [Crestor] 5 mg tablet 5 mg PO DAILY Qty: 90 RF: 1 promethazine 6.25 mg/5 mL syrup 6.25 mg PO BEDTIME Qty: 125 RF: 1 lisinopril-hydrochlorothiazide 10-12.5 mg tablet See Rx Instructions .ROUTE .COMPLEX Qty: 90 RF: 2 doxazosin 2 mg tablet See Rx Instructions .ROUTE .COMPLEX Qty: 90 RF: 2 PreserVision AREDS 14,320-226-200 [id number] capsule 1 cap PO QAM AND QPM RF: 0 Hold Instructions: on doxy omega-3 fatty acids 1,000 mg capsule 1,000 mg PO TID RF: 0 ibuprofen 800 mg tablet 800 mg PO Q8H Qty: 90 RF: 3 doxycycline hyclate 100 mg tablet 100 mg PO BID Qty: 20 RF: 0 benzonatate [Tessalon Perles] 100 mg capsule 100 mg PO BID-TID PRN (Reason: cough) Qty: 30 RF: 0 guaifenesin 600 mg tablet extended release 12hr 600 mg PO BID Qty: 30 RF: 0 acetaminophen [Tylenol Extra Strength] 500 mg tablet 1,000 mg PO TID PRN (Reason: pain) Qty: 90 RF: 0 Referrals: Reta Knutson ARNP [Primary Care Provider] -
[2021-04-27] MEDS: HYDROMORPHONE 1 MG INJ IV ×2 (20:06→21:55)
[2021-04-27] MEDS: CYCLOBENZAPRINE 10 MG TABLET PO (20:54)
[2021-04-27] MEDS: OXYCODONE/APAP 5/325 PREPACK 1 BOTTLE MISC (21:55)
[2021-04-27] MEDS: CYCLOBENZAPRINE 10 MG PREPACK 1 BOTTLE MISC (21:55)
== END 2021-04-27 22:10 | disposition home or self-care (01) ==
PROVIDERS: Emergency Provider Emergency Medicine; PCP Nurse Practitioner
DX: M25.551 Pain in right hip (principal)
CPT/HCPCS: 96374; 96376; 99284; J1170

== ENCOUNTER 2021-04-29 10:57 | Emergency (ER) | payer MEDICARE, SELFPAY ==
[2021-04-29] VITALS (13 sets, daily range): BP systolic 121–165; BP diastolic 67–80; PULSE 60–73; RESP 14–18; TEMP 36.4–36.6; O2SAT 91–99
[2021-04-29 11:58] LABS: Add Manual Diff / Slide Review NO; Basophils Absolute Auto 0 /uL (0-100); Basophils Percent Auto 0.5 % (0-2); Eosinophils Absolute Auto 200 /uL (0-450); Eosinophils Percent Auto 3.1 % (2-4); Hematocrit 38.7 % (41-53); Hemoglobin 13.2 g/dL (13.5-17.5); Lymphocytes Absolute Auto 2100 /uL (1100-4500); Lymphocytes Percent Auto 36.2 % (25-40); Mean Corpuscular HGB Conc 34.1 % (30-36); Mean Corpuscular Hemoglobin 30.7 PG (26-34); Mean Corpuscular Volume 90.2 fL (80-100); Monocytes Absolute Auto 600 /uL (0-900); Monocytes Percent Auto 11.2 % (3-14); Neutrophils Absolute Auto 2800 /uL (1500-7000); Platelet Count 158 X10^3/uL (150-400); Red Blood Cell Count 4.29 X10^6/uL (4.5-5.9); Red Cell Distribution Width 15.2 % (11.6-14.8); White Blood Cell Count 5.7 X10^3/uL (4.5-11.0)
--- NOTE | 2021-04-29 11:58 | DI.CT.S_ITS ---
PROCEDURE: CT KIDNEY URETER BLADDER (KUB) INDICATIONS: right flank TECHNIQUE: Axial sections were acquired from the lung bases to the pubic symphysis. Coronal and sagittal reformats were performed. For radiation dose reduction, the following was used: automated exposure control, adjustment of mA and/or kV according to patient size. COMPARISON: [facility], MR, MR LUMBAR SPINE WO CON, 01/08/2018, 17:15. [facility], CT, CT KIDNEY URETER BLADDER (KUB), 10/11/2020, 12:14. FINDINGS: Image quality: Excellent. Lung bases: There is mild atelectasis in the lung bases. Heart: No significant findings. URINARY: Right Kidney: There is an oval high density with indistinct margins in the superior pole of the right kidney measuring up to 0.9 cm redemonstrated. The finding is suggestive of a nonobstructing renal stone versus a hemorrhagic cyst or localized medullary nephrocalcinosis. There is no definite hydronephrosis. Multiple parapelvic renal cysts are redemonstrated. Right Ureter: No hydroureter. Left Kidney: There are 3 small nonobstructing stones within the left kidney with the largest measuring up to 0.3 cm. Multiple parapelvic renal cysts are redemonstrated. Left Ureter: No hydroureter. Bladder: Normal wall thickness. No stones. ABDOMEN: Liver: A small hypodense focus is redemonstrated posteriorly in the right hepatic dome, measuring up to 0.5 cm. The finding is too small to characterize but statistically likely represents a cyst. Gallbladder: Multiple small calcified dependent gallstones are demonstrated in the region of the gallbladder neck. No gallbladder wall thickening or pericholecystic fluid. Biliary ducts: Unremarkable. Pancreas: Unremarkable. Spleen: Unremarkable. Adrenal Glands: There is nodular thickening of the left adrenal gland measuring up to 0.8 cm in diameter. This demonstrates indeterminate attenuation values. No right adrenal nodule. Stomach and Bowel: Stomach, small bowel loops, and colon are normal in caliber and wall thickness. The appendix is normal in appearance. There is colonic diverticulosis without acute diverticulitis. Peritoneum: No abnormal intraperitoneal fluid. No free air. Ventral Wall: No hernia. Abdominal Nodes: No enlarged retroperitoneal or mesenteric lymph nodes. Vessels: Aorta and inferior vena cava are normal in size. PELVIS: Pelvic Organs: Unremarkable. Pelvic Nodes: Unremarkable. Miscellaneous: No inguinal hernias are seen. Bones: Unremarkable. IMPRESSION: 1. High density redemonstrated in the superior pole of the right kidney may represent an indistinct nonobstructing renal stone versus a hemorrhagic cyst or localized medullary nephrocalcinosis. 2. Small nonobstructing left renal stones redemonstrated. 3. Multiple parapelvic renal cysts redemonstrated without definite hydronephrosis. 4. Mild nodular thickening of the left adrenal gland with indeterminate attenuation values. This appears similar to the prior lumbar spine MRI where visualized. 5. No evidence of appendicitis. 6. Colonic diverticulosis. Dictated by: Matthew Tam M.D. on 04/29/2021 at 12:37 Approved by: Matthew Tam M.D. on 04/29/2021 at 13:17
--- NOTE | 2021-04-29 11:58 | ED.MALEGU ---
HPI - Male Genitourinary General Chief complaint: Urogenital-Male Stated complaint: Poss Kidney Stones/Was here Thursday Time Seen by Provider: 04/29/21 11:40 Source: patient Mode of arrival: Wheelchair Limitations: no limitations History of Present Illness HPI Narrative: Patient is a 80-year-old male with history of chronic ongoing right-sided back pain. He has had it long standing he had an injection in that area 1 week ago. He said previously said injection and pain improved instantly. His pain is actually worse with twisting. This is his 2nd ED visit for the same. He says pain is sharp and stabbing comes in waves sometimes radiates to his groin. He has started having dysuria as well. No fever or chills. No nausea vomiting. No chest pain palpitations or shortness of breath. He denies any pain or radiation into his leg no leg weakness. No loss of urine. Related Data Home Medications Medication Instructions Recorded Confirmed omega-3 fatty acids 1,000 mg 1,000 mg PO TID cap 02/03/20 02/04/21 capsule vitamins A,C,A-fzva-lvkzcf 14,320 1 cap PO QAM AND QPM 02/03/20 03/28/21 unit-226 mg-200 unit capsule (PreserVision AREDS) lisinopril 10 1 tab PO DAILY 04/29/21 04/29/21 mg-hydrochlorothiazide 12.5 mg tablet metoprolol tartrate 50 mg tablet 100 mg PO BID 04/29/21 04/29/21 Previous Rx's Medication Instructions Recorded terbinafine HCl 250 mg tablet 250 mg PO DAILY #90 tab 09/21/20 rosuvastatin 5 mg tablet (Crestor) 5 mg PO DAILY #90 tab 01/14/21 acetaminophen 500 mg tablet 1,000 mg PO TID PRN #90 tab 03/28/21 (Tylenol Extra Strength) ibuprofen 800 mg tablet 800 mg PO Q8H #90 tab 03/28/21 promethazine 6.25 mg/5 mL oral 6.25 mg PO BEDTIME #125 ml 04/03/21 syrup doxazosin 2 mg tablet See Rx Instructions .ROUTE 04/23/21 .COMPLEX #90 tab cyclobenzaprine 10 mg tablet 10 mg PO TID PRN #20 tab 04/27/21 oxycodone-acetaminophen 5 mg-325 1 tab PO Q4-6H PRN #20 tab 04/27/21 mg tablet (Percocet) ketorolac 10 mg tablet 10 mg PO TID PRN #10 tab 04/29/21 methocarbamol 750 mg tablet 750 mg PO Q8H PRN #14 tab 04/29/21 Allergies Allergy/AdvReac Type Severity Reaction Status Date / Time No Known Drug Allergies Allergy Verified 04/29/21 11:07 Review of Systems Review of Systems Narrative: GENERAL: Denies chills, fatigue, malaise, fever, sweats, travel HEENT: Denies sinus pain, ear pain, sore throat, difficulty swallowing, neck pain RESPIRATORY: Denies dyspnea, cough, wheezing, hemoptysis, sputum. CARDIOVASCULAR: Denies chest pain, palpitations, orthopnea, edema GASTROINTESTINAL: Denies nausea, vomiting, abdominal pain, diarrhea, constipation, melena. : See HPI MUSCULOSKELETAL: Denies weakness, joint pain, or bony pain SKIN: No rash, no erythema, no pruritus NEUROLOGIC: Denies weakness, dizziness, headache, numbness, change in speech, confusion PSYCHIATRIC: No concerning psychosocial issues. 12 point review of systems is negative except for those stated above and HPI Patient History Medical History Atrial fibrillation (~2013) Benign prostatic hyperplasia (10/13/11) Carpal tunnel syndrome (Unknown) Cervical spinal stenosis Chickenpox (Unknown) Elevated LFTs High triglycerides (Unknown) History of colonic polyps (10/13/11) Hypertension (Unknown) Left knee pain Macular degeneration Measles (Unknown) Mumps (Unknown) Nightmares Obstructive sleep apnea (08/09/14) Osteoarthritis (Unknown) 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) Rheumatic fever (Unknown) Right-sided thoracic back pain Shoulder pain (Unknown) Spinal stenosis (Unknown) Toenail fungus Surgical History History of carpal tunnel repair History of cataract removal with insertion of prosthetic lens History of cervical discectomy (10/2016) Status post arthroscopy Family History Brother CAD (coronary artery disease) Obesity Social History household members: spouse Smoking Status: Former smoker second hand exposure: No alcohol intake: current substance use type: does not use Smoking Status: Former smoker alcohol intake frequency: holidays/special occasions only Substance Use Type: does not use Exam Initial Vital Signs Initial Vital Signs: Vital Signs Temperature 97.6 F 04/29/21 11:01 Pulse Rate 68 04/29/21 11:01 Respiratory Rate 14 04/29/21 11:01 Blood Pressure 149/80 H 04/29/21 11:01 Pulse Oximetry 99 04/29/21 11:01 GENERAL: Alert 80-year-old male appears in pain HEENT: Head atraumatic,EOMI, pupils reactive, face symmetric, [moist] mucous membranes CARDIOVASCULAR: Regular rate and rhythm without murmurs, rubs or gallops. RESPIRATORY: Breath sounds equal bilaterally, no wheezes rales or rhonchi. ABDOMEN: Soft, nontender. Normoactive bowel sounds all 4 quadrants. No guarding or rebound. BACK: No vertebral tenderness no step-off : Right CVA tenderness. Pain is reproducible with palpation EXTREMITIES: Normal range of motion, no clubbing or edema. Neurovascularly intact NEUROLOGICAL: Alert and oriented x4.Normal gait and speech. SKIN: Warm, dry, no laceration, no petechiae, no rashes or lesions. Course Orders Ordered: ED Orders 04/29/21 11:37 Complete Blood Count AUTO DIFF Stat Comprehensive Metabolic Panel Stat Lipase Stat 04/29/21 11:58 CT kidney ureter bladder (KUB) Stat 04/29/21 12:16 Urinalysis and Microscopic Stat Discontinued Medications Hydromorphone HCl (Hydromorphone 1 Mg Inj) 1 mg IV NOW ONE Stop: 04/29/21 12:00 Last Admin: 04/29/21 12:08 Dose: 1 mg Documented by: ANUJA Ketorolac Tromethamine (Ketorolac 30 Mg/Ml Vial) 15 mg IV NOW ONE Stop: 04/29/21 14:46 Last Admin: 04/29/21 15:05 Dose: 15 mg Documented by: ANUJA Vital Signs Vital signs: Vital Signs - 8 hr 04/29/21 11:16 04/29/21 11:17 04/29/21 11:31 Temperature Pulse Rate 69 64 67 Respiratory Rate Blood Pressure 165/74 H Pulse Oximetry 98 98 93 04/29/21 11:37 04/29/21 12:00 04/29/21 12:36 Temperature Pulse Rate 63 73 64 Respiratory Rate Blood Pressure 141/74 H 121/67 Pulse Oximetry 99 91 99 04/29/21 13:00 04/29/21 13:47 04/29/21 14:00 Temperature Pulse Rate 62 61 61 Respiratory Rate Blood Pressure 137/74 Pulse Oximetry 95 94 95 04/29/21 14:27 04/29/21 14:30 04/29/21 15:00 Temperature 98 F Pulse Rate 60 60 61 Respiratory Rate 18 Blood Pressure 130/71 128/72 139/71 Pulse Oximetry 96 96 98 MDM - Male Genitourinary Lab Data Result diagrams: 04/29/21 11:37 04/29/21 11:37 Labs: Lab Results 04/29/21 04/29/21 04/29/21 Range/Units 11:37 11:37 11:37 WBC 5.7 (4.5-11.0) X10^3/uL RBC 4.29 L (4.5-5.9) X10^6/uL Hgb 13.2 L (13.5-17.5) g/dL Hct 38.7 L (41-53) % MCV 90.2 (80-100) fL MCH 30.7 (26-34) PG MCHC 34.1 (30-36) % RDW 15.2 H (11.6-14.8) % Plt Count 158 (150-400) X10^3/uL Neut % (Auto) 49.0 L (50-75) % Lymph % (Auto) 36.2 (25-40) % [place] % (Auto) 11.2 (3-14) % Eos % (Auto) 3.1 (2-4) % Baso % (Auto) 0.5 (0-2) % Neut # (Auto) 2800 (4469-0499) /uL Lymph # (Auto) 2100 (0244-1603) /uL [place] # (Auto) 600 (0-900) /uL Eos # (Auto) 200 (0-450) /uL Baso # (Auto) 0 (0-100) /uL Sodium 138 (137-145) mmol/L Potassium 4.1 (3.4-5.1) mmol/L Chloride 99 (98-107) mmol/L Carbon Dioxide 31 (22-32) mmol/L BUN 22 H (9-20) mg/dL Creatinine 0.84 (0.66-1.25) mg/dL Estimated GFR > 60.0 (>60) mL/min BUN/Creatinine Ratio 26.2 H (6-22) Glucose 77 L (80-110) mg/dL Calcium 9.4 (8.4-10.2) mg/dL Total Bilirubin 1.0 (0.2-1.3) mg/dL AST 32 (17-59) IU/L ALT 34 (<50) IU/L Alkaline Phosphatase 59 (38-126) U/L Total Protein 7.5 (6.3-8.2) g/dL Albumin 4.4 (3.5-5.0) g/dL Globulin 3.1 (1.7-4.1) g/dL Albumin/Globulin Ratio 1.4 (1.0-2.8) Lipase 53 (23-300) U/L Urine Color Urine Appearance Urine pH (4.5-8.0) Ur Specific [place] (1.000-1.035) Urine Protein (Negative) Urine Glucose (UA) (Negative) g/dL Urine Ketones (NEGATIVE) Urine Occult Blood (Negative) Urine Nitrate (Negative) Urine Bilirubin (NEGATIVE) Urine Urobilinogen (0.2) E.U./dL Ur Leukocyte Esterase (NEGATIVE) Urine RBC (0-5/HPF) Urine WBC (0-5/HPF) Urine Bacteria (None) Ur Culture Indicated? Micro UA Comment 04/29/21 Range/Units 12:16 WBC (4.5-11.0) X10^3/uL RBC (4.5-5.9) X10^6/uL Hgb (13.5-17.5) g/dL Hct (41-53) % MCV (80-100) fL MCH (26-34) PG MCHC (30-36) % RDW (11.6-14.8) % Plt Count (150-400) X10^3/uL Neut % (Auto) (50-75) % Lymph % (Auto) (25-40) % [place] % (Auto) (3-14) % Eos % (Auto) (2-4) % Baso % (Auto) (0-2) % Neut # (Auto) (4098-0317) /uL Lymph # (Auto) (6225-4904) /uL [place] # (Auto) (0-900) /uL Eos # (Auto) (0-450) /uL Baso # (Auto) (0-100) /uL Sodium (137-145) mmol/L Potassium (3.4-5.1) mmol/L Chloride (98-107) mmol/L Carbon Dioxide (22-32) mmol/L BUN (9-20) mg/dL Creatinine (0.66-1.25) mg/dL Estimated GFR (>60) mL/min BUN/Creatinine Ratio (6-22) Glucose (80-110) mg/dL Calcium (8.4-10.2) mg/dL Total Bilirubin (0.2-1.3) mg/dL AST (17-59) IU/L ALT (<50) IU/L Alkaline Phosphatase (38-126) U/L Total Protein (6.3-8.2) g/dL Albumin (3.5-5.0) g/dL Globulin (1.7-4.1) g/dL Albumin/Globulin Ratio (1.0-2.8) Lipase (23-300) U/L Urine Color Yellow Urine Appearance Clear Urine pH 6.0 (4.5-8.0) Ur Specific [place] 1.010 (1.000-1.035) Urine Protein Negative (Negative) Urine Glucose (UA) Negative (Negative) g/dL Urine Ketones Negative (NEGATIVE) Urine Occult Blood Negative (Negative) Urine Nitrate Negative (Negative) Urine Bilirubin Negative (NEGATIVE) Urine Urobilinogen 0.2 (0.2) E.U./dL Ur Leukocyte Esterase Negative (NEGATIVE) Urine RBC None seen (0-5/HPF) Urine WBC None seen (0-5/HPF) Urine Bacteria None seen (None) Ur Culture Indicated? Cult not indicated Micro UA Comment Microscopic normal Imaging Data CT scan - abdomen/pelvis: Radiologist's Impression: PROCEDURE:? CT KIDNEY URETER BLADDER (KUB) ? INDICATIONS:? right flank ? TECHNIQUE:? Axial sections were acquired from the lung bases to the pubic symphysis.? Coronal and sagittal reformats were performed.? For radiation dose reduction, the following was used: ?automated exposure control, adjustment of mA and/or kV according to patient size.? ? COMPARISON:? ? [facility], MR, MR LUMBAR SPINE WO CON, 01/08/2018, 17:15.? [facility], CT, CT KIDNEY URETER BLADDER (KUB), 10/11/2020, 12:14. ? FINDINGS:? Image quality:? Excellent.? ? Lung bases:? There is mild atelectasis in the lung bases.? ? Heart:? No significant findings. ? URINARY: Right Kidney:? There is an oval high density with indistinct margins in the superior pole of the right kidney measuring up to 0.9 cm redemonstrated.? The finding is suggestive of a nonobstructing renal stone versus a hemorrhagic cyst or localized medullary nephrocalcinosis.? There is no definite hydronephrosis.? Multiple parapelvic renal cysts are redemonstrated. Right Ureter:? No hydroureter.? ? Left Kidney:? There are 3 small nonobstructing stones within the left kidney with the largest measuring up to 0.3 cm.? Multiple parapelvic renal cysts are redemonstrated. Left Ureter:? No hydroureter.? ? Bladder:? Normal wall thickness. No stones. ? ? ? ABDOMEN: Liver:? A small hypodense focus is redemonstrated posteriorly in the right hepatic dome, measuring up to 0.5 cm.? The finding is too small to characterize but statistically likely represents a cyst.? ? Gallbladder:? Multiple small calcified dependent gallstones are demonstrated in the region of the gallbladder neck.? No gallbladder wall thickening or pericholecystic fluid. Biliary ducts:? Unremarkable.? ? Pancreas:? Unremarkable.? ? Spleen:? Unremarkable.? ? Adrenal Glands:? There is nodular thickening of the left adrenal gland measuring up to 0.8 cm in diameter.? This demonstrates indeterminate attenuation values.? No right adrenal nodule. ? Stomach and Bowel:? Stomach, small bowel loops, and colon are normal in caliber and wall thickness.? The appendix is normal in appearance.? There is colonic diverticulosis without acute diverticulitis. Peritoneum:? No abnormal intraperitoneal fluid.? No free air.? ? Ventral Wall: ? No hernia.? Abdominal Nodes:? No enlarged retroperitoneal or mesenteric lymph nodes.? Vessels:? Aorta and inferior vena cava are normal in size.? ? PELVIS: Pelvic Organs:? Unremarkable.? ? Pelvic Nodes: Unremarkable. Miscellaneous: No inguinal hernias are seen. ? ? ? Bones:? Unremarkable. ? IMPRESSION:? ? 1. High density redemonstrated in the superior pole of the right kidney may represent an indistinct nonobstructing renal stone versus a hemorrhagic cyst or localized medullary nephrocalcinosis. ? 2. Small nonobstructing left renal stones redemonstrated. ? 3. Multiple parapelvic renal cysts redemonstrated without definite hydronephrosis. ? 4. Mild nodular thickening of the left adrenal gland with indeterminate attenuation values.? This appears similar to the prior lumbar spine MRI where visualized. ? 5. No evidence of appendicitis. ? 6. Colonic diverticulosis.? ? ? Dictated by: Matthew Tam M.D. on 04/29/2021 at 12:37 ? ? Approved by: Matthew Tam M.D. on 04/29/2021 at 13:17 ? MDM Narrative Medical decision making narrative: Symptoms are reproducible with palpation he has had longstanding right flank pain which is worse over the last few days. He was having some dysuria his urine actually does not show any infection. As blood work is overall reassuring. He was given Dilaudid for pain which he says does not really help it only makes him sleep. CT showed he may have right renal stone or cyst. However, I do think this is probably more musculoskeletal. Pain is reproducible it is in the same place as it always is. I do not think he has aortic dissection-it is in 1 area on the the flank and lateral side the same area that it is always, there is no reason that he should have an epidural hematoma he was not injected spine, was injected at the spot. At this time I think patient should have muscle spasm medication and pain medication along with light stretching. Discharge Plan Departure Patient Disposition: Home Clinical Impression: Muscle spasm Instructions: DI for Muscle Spasm Activity Restrictions/Additional Instructions: *You have been diagnosed with muscle spasm *What to do: At this time recommend heating pad, light stretching. CT scan today did show that you have kidney stones but there unlikely causing her pain at this time. *Continue to take medications as directed Methocarbamol 1500 mg every 8 hours if needed for muscle spasm Ketorolac 10 0 mg every 6 hours if needed for [id number] pain--DO NOT COMBINE WITH ANY IBUPROFEN, MOTRIN ALEVE, ADVIL, NAPROXEN *Follow up with your primary care provider in 2-3 days *Return to ER if you should have increasing pain, weakness, vomiting, fever or any new, worsening or concerning symptoms Prescriptions: New methocarbamol 750 mg tablet 750 mg PO Q8H PRN (Reason: muscle spasm) Qty: 14 RF: 0 ketorolac 10 mg tablet 10 mg PO TID PRN (Reason: pain) Qty: 10 RF: 0 No Action terbinafine HCl 250 mg tablet 250 mg PO DAILY Qty: 90 RF: 1 rosuvastatin [Crestor] 5 mg tablet 5 mg PO DAILY Qty: 90 RF: 1 promethazine 6.25 mg/5 mL syrup 6.25 mg PO BEDTIME Qty: 125 RF: 1 doxazosin 2 mg tablet See Rx Instructions .ROUTE .COMPLEX Qty: 90 RF: 2 PreserVision AREDS 14,320-226-200 [id number] capsule 1 cap PO QAM AND QPM RF: 0 Hold Instructions: on doxy omega-3 fatty acids 1,000 mg capsule 1,000 mg PO TID RF: 0 ibuprofen 800 mg tablet 800 mg PO Q8H Qty: 90 RF: 3 acetaminophen [Tylenol Extra Strength] 500 mg tablet 1,000 mg PO TID PRN (Reason: pain) Qty: 90 RF: 0 cyclobenzaprine 10 mg tablet 10 mg PO TID PRN (Reason: muscle spasm) Qty: 20 RF: 0 oxycodone-acetaminophen [Percocet] 5-325 mg tablet 1 tab PO Q4-6H PRN (Reason: pain) Qty: 20 RF: 0 lisinopril-hydrochlorothiazide 10-12.5 mg tablet 1 tab PO DAILY RF: 0 metoprolol tartrate 50 mg tablet 100 mg PO BID RF: 0 Referrals: Reta Knutson ARNP [Primary Care Provider] -
[2021-04-29 12:00] LABS: Alanine Aminotransferase 34 IU/L (<50); Albumin 4.4 g/dL (3.5-5.0); Albumin Globulin Ratio 1.4 (1.0-2.8); Alkaline Phosphatase 59 U/L (38-126); Aspartate Aminotransferase 32 IU/L (17-59); BUN Creatinine Ratio 26.2 (6-22); Blood Urea Nitrogen 22 mg/dL (9-20); Calcium 9.4 mg/dL (8.4-10.2); Carbon Dioxide 31 mmol/L (22-32); Chloride 99 mmol/L (98-107); Estimated Glomerular Filt Rate > 60.0 mL/min (>60); Globulin 3.1 g/dL (1.7-4.1); Glucose 77 mg/dL (80-110); HEMOLYSIS 17 (0-50); Lipase 53 U/L (23-300); Potassium 4.1 mmol/L (3.4-5.1); Sodium 138 mmol/L (137-145); Total Protein 7.5 g/dL (6.3-8.2)
[2021-04-29] MEDS: HYDROMORPHONE 1 MG INJ IV (12:08)
[2021-04-29 12:24] LABS: Appearance Urine UA CLEAR; Bilirubin Urine UA NEGATIVE (NEGATIVE); Color Urine UA YELLOW; Glucose Urine UA NEGATIVE (Negative); Ketones Urine UA NEGATIVE (NEGATIVE); Leukocyte Esterase Urine UA NEGATIVE (NEGATIVE); Nitrite Urine UA NEGATIVE (Negative); Occult Blood Urine UA NEGATIVE (Negative); Protein Urine UA NEGATIVE (Negative); Urobilinogen Urine UA 0.2 E.U./dL (0.2)
[2021-04-29 12:46] LABS: Bacteria Urine None Seen; Culture Indicated Urine Cult Not Indicated; RBC Urine None Seen (0-5/HPF); Urine Comments Microscopic Normal; WBC Urine None Seen (0-5/HPF)
[2021-04-29] MEDS: KETOROLAC 30 MG/ML VIAL 15 MG IV (15:05)
== END 2021-04-29 15:30 | disposition home or self-care (01) ==
PROVIDERS: Emergency Provider Emergency Medicine; PCP Nurse Practitioner
DX: M62.838 Other muscle spasm (principal); R30.0 Dysuria
CPT/HCPCS: 36415; 51798; 74176; 80053; 81001; 83690; 85025; 96374; 96375; 99284; J1170; J1885

== ENCOUNTER → 2021-05-02 17:39 | Outpatient (CLI) | payer MEDICARE, SELFPAY ==
--- NOTE | 2021-05-02 | DI.MRI.S_ITS ---
PROCEDURE: MR LUMBAR SPINE WO CON INDICATIONS: spondylosis without myelopathy or radiculopathy TECHNIQUE: Noncontrast sagittal T1 spin echo and T2 fast echo, sagittal STIR, axial T1 and T2 fast spin echo through the lumbar spine. In cases with scoliosis, additional coronal T2 fast spin echo may be performed. COMPARISON: [facility], MR, MR LUMBAR SPINE WO CON, 01/08/2018, 17:15. FINDINGS: Image quality: Excellent. Alignment and Curvature: Trace anterolisthesis of T12 on L1. Trace retrolisthesis of L4 on L5. Bone Marrow: Marrow is of normal overall signal. No acute vertebral body compression fractures. Bulky anterior osteophytes from L2-L3 through L4-L5. Spinal Cord: Conus medullaris terminates at the T12-L1 level. Visualized cord demonstrates normal signal and size. Paraspinous Soft Tissues: No paravertebral masses. T12-L1: Minimal disc bulge. Facet hypertrophy. No canal stenosis or foraminal stenosis. L1-L2: Mild disc bulge. Facet hypertrophy. Mild foraminal narrowing. L2-L3: Posterior disc bulge and right foraminal disc bulge. Facet hypertrophy. No canal stenosis. Progression of right foraminal stenosis, moderate, with mild flattening deformity on the exiting right L2 nerve root. L3-L4: Severe disc height loss. Posterior disc bulge. Facet hypertrophy. No significant canal stenosis. [id number] bilateral foraminal narrowing. L4-L5: Severe chronic disc height loss. Mild posterior disc post osteophyte. Facet hypertrophy. Borderline canal stenosis. Moderate bilateral foraminal narrowing with flattening deformity on the exiting bilateral L4 nerve roots. L5-S1: Posterior disc bulge. Facet hypertrophy. Bilateral foraminal disc bulges. No central canal stenosis. Moderate to severe bilateral foraminal narrowing with a degree of impingement on the bilateral exiting L5 nerve roots secondary to disc bulge. IMPRESSION: 1. Diffuse degenerative change. 2. Borderline canal stenosis at L4-L5. 3. Multilevel facet arthropathy. 4. Multilevel foraminal narrowing as described above. This includes moderate right foraminal narrowing at L2-L3, moderate bilateral foraminal narrowing at L4-L5, and moderate to severe bilateral foraminal narrowing at L5-S1. Dictated by: Obed Andre M.D. on 05/03/2021 at 8:24 Approved by: Obed Andre M.D. on 05/03/2021 at 8:33
== END ==
PROVIDERS: PCP Nurse Practitioner; Referring Provider Physical Medicine & Rehabilitation; Visit Provider Physical Medicine & Rehabilitation
DX: M47.816 Spondylosis without myelopathy or radiculopathy, lumbar region (principal); M48.061 Spinal stenosis, lumbar region without neurogenic claudication; M47.896 Other spondylosis, lumbar region; M48.07 Spinal stenosis, lumbosacral region
CPT/HCPCS: 72148

== ENCOUNTER → 2021-06-04 07:02 | Outpatient (CLI) | payer MEDICARE, SELFPAY ==
[2021-06-04 08:08] LABS: Alanine Aminotransferase 36 IU/L (<50); Albumin 4.1 g/dL (3.5-5.0); Albumin Globulin Ratio 1.5 (1.0-2.8); Alkaline Phosphatase 52 U/L (38-126); Aspartate Aminotransferase 30 IU/L (17-59); BUN Creatinine Ratio 16.3 (6-22); Bilirubin Total 1.1 mg/dL (0.2-1.3); Blood Urea Nitrogen 15 mg/dL (9-20); Calcium 9.6 mg/dL (8.4-10.2); Carbon Dioxide 28 mmol/L (22-32); Chloride 103 mmol/L (98-107); Cholesterol 92 mg/dL (140-199); Estimated Glomerular Filt Rate > 60.0 mL/min (>60); Globulin 2.8 g/dL (1.7-4.1); Glucose 94 mg/dL (80-110); HDL Cholesterol 24 mg/dL (40-60); HEMOLYSIS < 15 (0-50); LDL Cholesterol Calculated 35 mg/dL (<100); Potassium 4.4 mmol/L (3.4-5.1); Sodium 140 mmol/L (137-145); Total Protein 6.9 g/dL (6.3-8.2); Triglycerides 163 mg/dL (35-150)
== END ==
PROVIDERS: PCP Nurse Practitioner; Referring Provider Nurse Practitioner; Visit Provider Nurse Practitioner
DX: I10 Essential (primary) hypertension (principal); E78.1 Pure hyperglyceridemia; R79.89 Other specified abnormal findings of blood chemistry; U07.1 COVID-19
CPT/HCPCS: 36415; 80053; 80061

== ENCOUNTER 2022-02-17 08:56 | Emergency (ER) | payer MEDICARE, SELFPAY ==
[2022-02-17 09:04] VITALS: BP 130/69; PULSE 80; RESP 18; TEMP 36.7; O2SAT 94; BMI 35.9
--- NOTE | 2022-02-17 09:26 | ED.BACK ---
HPI - Back Pain/Injury General Chief Complaint: Back Pain/Injury Stated Complaint: right buttocks pain Time Seen by Provider: 02/17/22 09:22 Source: patient and family History of Present Illness HPI Narrative: Patient is a 81-year-old male history of hypertension, hyperlipidemia, ongoing sciatica , L5-S1 foraminal stenosis, presents today with worsening right-sided sciatic pain. He said it woke him up from sleep this morning he has sharp shooting pains with any type of movement down his right leg. He took ketorolac home without any relief. He said he was given multiple medications in it has not helped in the past. Toradol has helped but not this time. Admits definitely worse with any type of movement he does not remember any specific injury. He denies any changes in bowel or bladder habits. No fever or chills. This feels like an exacerbation of his previous attack Related Data Home Medications Medication Instructions Recorded Confirmed omega-3 fatty acids 1,000 mg 1,000 mg PO TID 02/03/20 01/29/22 capsule vitamins A,C,P-[id number]-rkrnzh 14,320 1 cap PO QAM AND QPM 02/03/20 01/29/22 unit-226 mg-200 unit capsule (PreserVision AREDS) Previous Rx's Medication Instructions Recorded acetaminophen 500 mg tablet 1,000 mg PO TID PRN pain #90 tabs 03/28/21 (Tylenol Extra Strength) metoprolol tartrate 50 mg tablet 50 mg PO BID #180 tabs 08/13/21 lisinopril 10 See Rx Instructions .Route 01/09/22 mg-hydrochlorothiazide 12.5 mg .COMPLEX #90 tabs tablet doxazosin 4 mg tablet 4 mg PO BID #180 tabs 01/29/22 ibuprofen 800 mg tablet 800 mg PO Q8H #90 tabs 02/13/22 diazepam 5 mg tablet (Valium) 5 mg PO Q12HR PRN muscle spasm #10 02/17/22 tabs gabapentin 300 mg capsule 300 mg PO BEDTIME #15 caps 02/17/22 hydrocodone 5 mg-acetaminophen 325 1 tab PO Q6H PRN pain #10 tabs 02/17/22 mg tablet prednisone 20 mg tablet 40 mg PO DAILY #10 tabs 02/17/22 rosuvastatin 5 mg tablet See Rx Instructions .Route 02/17/22 .COMPLEX #90 tabs Allergies Allergy/AdvReac Type Severity Reaction Status Date / Time No Known Drug Allergies Allergy Verified 02/17/22 09:08 Review of Systems Review of Systems Narrative: GENERAL: Denies chills,fever HEENT: Denies throat pain RESPIRATORY: Denies dyspnea, cough, wheezing CARDIOVASCULAR: Denies chest pain, palpitations GASTROINTESTINAL: Denies nausea, vomiting MUSCULOSKELETAL: See HPI SKIN: No rash, no laceration, no pruritus NEUROLOGIC: Denies weakness, dizziness, headache, numbness 8 point review of systems is negative except for those stated above and HPI Patient History Medical History Anemia Atrial fibrillation (~2013) Benign neoplasm umbilicus skin Benign prostatic hyperplasia (10/13/11) Carpal tunnel syndrome (Unknown) Cervical spinal stenosis Chickenpox (Unknown) Elevated LFTs High triglycerides (Unknown) History of colonic polyps (10/13/11) Hypertension (Unknown) Left knee pain Macular degeneration Measles (Unknown) Mumps (Unknown) Nightmares Obstructive sleep apnea (08/09/14) Osteoarthritis (Unknown) 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) Renal calcification Rheumatic fever (Unknown) Right low back pain Right-sided thoracic back pain Shoulder pain (Unknown) Spinal stenosis (Unknown) Toenail fungus Surgical History History of carpal tunnel repair History of cataract removal with insertion of prosthetic lens History of cervical discectomy (10/2016) Status post arthroscopy Family History Brother CAD (coronary artery disease) Obesity Social History household members: spouse Smoking Status: Former smoker second hand exposure: No alcohol intake: current substance use type: does not use Smoking Status: Former smoker alcohol intake frequency: holidays/special occasions only Substance Use Type: does not use Exam Initial Vital Signs Initial Vital Signs: Vital Signs Temperature 98.0 F 02/17/22 09:04 Pulse Rate 80 02/17/22 09:04 Respiratory Rate 18 02/17/22 09:04 Blood Pressure 130/69 02/17/22 09:04 Pulse Oximetry 94 02/17/22 09:04 Oxygen Delivery Method 02/17/22 09:04 GENERAL: Alert pleasant the 81-year-old male appears very uncomfortable and in no acute distress. HEENT: Head atraumatic,EOMI, pupils reactive, face symmetric, moist mucous membranes CARDIOVASCULAR: Regular rate and rhythm without murmurs, rubs or gallops. RESPIRATORY: Breath sounds equal bilaterally, no wheezes rales or rhonchi. ABDOMEN: Soft, nontender. Normoactive bowel sounds all 4 quadrants. No guarding or rebound. EXTREMITIES: Normal range of motion, no clubbing or edema. Neurovascularly intact Severe pain in right buttock with any movement NEUROLOGICAL: Alert and oriented x4. Patient lower extremities the same SKIN: Warm, dry, no laceration, no petechiae, no rashes or lesions. Course Orders Ordered: Discontinued Medications Diazepam (Diazepam 5 Mg Tablet) 5 mg PO NOW ONE Stop: 02/17/22 10:45 Last Admin: 02/17/22 11:13 Dose: 5 mg Documented By: TAYA Gabapentin (Gabapentin 300 Mg Capsule) 300 mg PO NOW ONE Stop: 02/17/22 09:36 Last Admin: 02/17/22 09:42 Dose: 300 mg Documented By: SANDRA Hydromorphone HCl (Hydromorphone 2 Mg Inj) 1 mg SUBCUT Q4H PRN PRN Reason: Pain, Severe (7-10) Hydromorphone HCl (Hydromorphone 2 Mg Inj) 1 mg SUBCUT NOW ONE Stop: 02/17/22 09:39 Last Admin: 02/17/22 09:43 Dose: 1 mg Documented By: SANDRA Vital Signs Vital signs: Vital Signs - 8 hr 02/17/22 09:04 Temperature 98.0 F Pulse Rate 80 Respiratory Rate 18 Blood Pressure 130/69 Pulse Oximetry 94 Oxygen Delivery Method Room Air MDM - Back Pain/Injury MDM Narrative Medical decision making narrative: Patient has a history of sciatica, this is similar to previous flare-ups. No red flag symptoms is. He is mildly better after Dilaudid and gabapentin. States that he was given methocarbamol previously it does not seem to help. At this time patient feels comfortable going home. May need outpatient MRI or physical therapy. Discharge Plan Departure Patient Disposition: Home Clinical Impression: Sciatica Instructions: DI for Sciatica Activity Restrictions/Additional Instructions: *You have been diagnosed with right-sided sciatica *What to do: Increase activity as tolerated, may require outpatient MRI possibly physical therapy *Continue to take medications as directed--> SENT TO [facility] [place] 1 tablet every 6 hours only if needed for severe pain Valium 5 mg every 12 hours if needed for muscle spasm (can break in half) this does cause sleepiness Prednisone 40 mg once a day start today (do not take ibuprofen, Motrin, Aleve, ketorolac with this medication) Gabapentin 300 mg at night to help with nerve pain *Follow up with your primary care provider in 2-3 days or call [phone] *Return to ER if you should have increasing leg weakness loss of urine loss of stool fever worsening pain or any new, worsening or concerning symptoms CONTROLLED SUBSTANCE DISCHARGE (Narcotoic/benzodiazepine/Flexeril/Phenergan) 1. You have been prescribed narcotic medications, it does have acetaminophen/Tylenol/paracetamol in it, DO NOT TAKE MORE THAN 4,00mg in 24 hours of Tylenol. TRAMADOL DOES NOT CONTAIN TYLENOL 2. Please understand that we cannot provide further refills of narcotics, benzodiazepines or controlled substances through the ED and her pain management will need to be through your provider. 3. While on these medications you cannot drive or operate heavy machinery. 4. You cannot sign legal documents or perform any duties such as this. 5. As long as you're taking opiate pain medications he should also be taking a stool softener such as Colace, Dulcolax, MiraLAX or prune juice, to help avoid constipation. Prescriptions: New hydrocodone-acetaminophen 5-325 mg tablet 1 tab PO Q6H PRN (Reason: pain) Qty: 10 0RF prednisone 20 mg tablet 40 mg PO DAILY Qty: 10 0RF gabapentin 300 mg capsule 300 mg PO BEDTIME Qty: 15 0RF diazepam [Valium] 5 mg tablet 5 mg PO Q12HR PRN (Reason: muscle spasm) Qty: 10 0RF No Action metoprolol tartrate 50 mg tablet 50 mg PO BID Qty: 180 3RF lisinopril-hydrochlorothiazide 10-12.5 mg tablet See Rx Instructions .ROUTE .COMPLEX Qty: 90 3RF Dose Instruction: TAKE 1 TABLET DAILY Rx Instructions: TAKE 1 TABLET DAILY doxazosin 4 mg tablet 4 mg PO BID Qty: 180 3RF Rx Instructions: Take 1 tab twice per day until stones pass ibuprofen 800 mg tablet 800 mg PO Q8H Qty: 90 3RF rosuvastatin 5 mg tablet See Rx Instructions .ROUTE .COMPLEX Qty: 90 3RF Dose Instruction: TAKE 1 TABLET DAILY FOR ELEVATED TRIGLYCERIDES Rx Instructions: TAKE 1 TABLET DAILY FOR ELEVATED TRIGLYCERIDES PreserVision AREDS 14,320-226-200 [id number]-[id number] capsule 1 cap PO QAM AND QPM Hold Instructions: on doxy omega-3 fatty acids 1,000 mg capsule 1,000 mg PO TID acetaminophen [Tylenol Extra Strength] 500 mg tablet 1,000 mg PO TID PRN (Reason: pain) Qty: 90 0RF Referrals: Reta Knutson ARNP [Primary Care Provider] - Visit Report Forms: Patient Portal/API
[2022-02-17] MEDS: GABAPENTIN 300 MG CAPSULE PO (09:42)
[2022-02-17] MEDS: HYDROMORPHONE 2 MG INJ 1 MG SUBCUT (09:43)
[2022-02-17] MEDS: diazePAM 5 MG TABLET PO (11:13)
== END 2022-02-17 11:31 | disposition home or self-care (01) ==
PROVIDERS: Emergency Provider Emergency Medicine; PCP Nurse Practitioner
DX: M54.31 Sciatica, right side (principal)
CPT/HCPCS: 96372; 99283; J1170

== ENCOUNTER → 2022-02-19 06:39 | Outpatient (CLI) | payer MEDICARE, SELFPAY ==
--- NOTE | 2022-02-19 06:40 | DI.MRI.S_ITS ---
PROCEDURE: MR LUMBAR SPINE WO CON INDICATIONS: sciatica, right TECHNIQUE: Noncontrast sagittal T1 spin echo and T2 fast echo, sagittal STIR, and T2 fast spin echo through the lumbar spine. In cases with scoliosis, additional coronal T2 fast spin echo may be performed. COMPARISON: [facility], MR, MR LUMBAR SPINE WO CON, 05/02/2021, 17:51. FINDINGS: Image quality: Excellent. Alignment and Curvature: There is 3 mm retrolisthesis of L4 on L5. Bone Marrow: Marrow is of normal overall signal. No acute vertebral body compression fractures. Spinal Cord: Conus medullaris terminates at the L1 level. Visualized cord demonstrates normal signal and size. Paraspinous Soft Tissues: No paravertebral masses. Bilateral renal T2 hyperintensities are present most suggestive of simple renal cysts. Discs: Moderate to severe desiccation is present throughout the lumbar spine most severe at L3-4, L4-5. L1-L2: Mild disc bulge with minimal canal narrowing, slightly progressive. Minimal to mild bilateral foraminal narrowing with facet and ligamentum flavum hypertrophy. Epidural lipomatosis is present. L2-L3: Mild disc bulge including a right foraminal bulge. No spinal stenosis. There is moderate right foraminal narrowing with mild flattening of the exiting right L2 nerve root, unchanged. L3-L4: Mild disc bulge without spinal stenosis. [id number] bilateral foraminal narrowing with facet and ligamentum flavum hypertrophy, right greater than left. No interval change. L4-L5: Mild disc bulge without spinal stenosis. Moderate to severe right and moderate left foraminal narrowing with facet and ligamentum flavum hypertrophy. There is flattening deformity of the exiting nerve roots most notable on the right. Foraminal narrowing on the right appears slightly progressive. L5-S1: Mild disc bulge without spinal stenosis. Severe left and moderate to severe right foraminal narrowing with compression of the exiting L5 nerve roots, left greater than right, slightly progressive. Facet hypertrophy is present. IMPRESSION: Multilevel degenerative changes with areas of interval progression as above. Multilevel foraminal narrowing most severe at L5-S1 predominantly secondary to facet arthropathy. Dictated by: Silvia Mosley M.D. on 02/19/2022 at 11:11 Approved by: Silvia Mosley M.D. on 02/19/2022 at 11:25
== END ==
PROVIDERS: PCP Nurse Practitioner; Referring Provider Nurse Practitioner; Visit Provider Nurse Practitioner
DX: M47.816 Spondylosis without myelopathy or radiculopathy, lumbar region (principal); M54.31 Sciatica, right side; M48.07 Spinal stenosis, lumbosacral region
CPT/HCPCS: 72148

== ENCOUNTER → 2022-02-25 08:41 | Outpatient (CLI) | payer MEDICARE, SELFPAY ==
[2022-02-25 10:02] LABS: Add Manual Diff / Slide Review NO; Basophils Absolute Auto 0 /uL (0-100); Basophils Percent Auto 0.6 % (0-2); Eosinophils Absolute Auto 200 /uL (0-450); Eosinophils Percent Auto 2.3 % (2-4); Hematocrit 39.2 % (41-53); Hemoglobin 13.5 g/dL (13.5-17.5); Lymphocytes Absolute Auto 2700 /uL (1100-4500); Lymphocytes Percent Auto 40.7 % (25-40); Mean Corpuscular HGB Conc 34.5 % (30-36); Mean Corpuscular Hemoglobin 31.4 PG (26-34); Mean Corpuscular Volume 90.9 fL (80-100); Monocytes Absolute Auto 700 /uL (0-900); Neutrophils Absolute Auto 3000 /uL (1500-7000); Neutrophils Percent Auto 45.4 % (50-75); Platelet Count 186 X10^3/uL (150-400); Red Blood Cell Count 4.31 X10^6/uL (4.5-5.9); Red Cell Distribution Width 14.9 % (11.6-14.8); White Blood Cell Count 6.7 X10^3/uL (4.5-11.0)
[2022-02-25 11:02] LABS: Alanine Aminotransferase 50 IU/L (<50); Albumin 4.2 g/dL (3.5-5.0); Albumin Globulin Ratio 1.6 (1.0-2.8); Alkaline Phosphatase 61 U/L (38-126); Aspartate Aminotransferase 37 IU/L (17-59); BUN Creatinine Ratio 18.6 (6-22); Bilirubin Total 0.8 mg/dL (0.2-1.3); Blood Urea Nitrogen 18 mg/dL (9-20); Calcium 9.4 mg/dL (8.4-10.2); Carbon Dioxide 26 mmol/L (22-32); Chloride 103 mmol/L (98-107); Estimated Glomerular Filt Rate > 60 mL/min (>60); Globulin 2.7 g/dL (1.7-4.1); Glucose 90 mg/dL (80-110); HEMOLYSIS < 15 (0-50); Potassium 4.4 mmol/L (3.4-5.1); Sodium 139 mmol/L (137-145); Total Protein 6.9 g/dL (6.3-8.2)
[2022-02-25 11:29] LABS: Thyroid Stimulating Hormone 2.03 uIU/mL (0.47-4.68)
[2022-02-25 12:27] LABS: Microalbumi Creatinin Ratio Ur 28.5 ug/mg CR (<30); Microalbumin Urine Random 4.4 mg/dL (0-1.6)
== END ==
PROVIDERS: PCP Nurse Practitioner; Referring Provider Nurse Practitioner; Visit Provider Nurse Practitioner
DX: D64.9 Anemia, unspecified (principal); I10 Essential (primary) hypertension; E78.1 Pure hyperglyceridemia; R79.89 Other specified abnormal findings of blood chemistry
CPT/HCPCS: 36415; 80053; 82043; 82570; 84443; 85025

== ENCOUNTER → 2022-02-25 09:20 | Outpatient (CLI) | payer MEDICARE, SELFPAY ==
--- NOTE | 2022-02-25 09:23 | DI.RAD.S_ITS ---
PROCEDURE: XR LUMBAR SPINE 2-3V INDICATIONS: pain in right hip, lumbago w/sciatica, right side TECHNIQUE: 3 views of the lumbar spine were acquired. COMPARISON: [facility], CR, XR HIP W PEL IF DONE RT 2V, 02/25/2022, 9:29. [facility], MR, MR LUMBAR SPINE WO CON, 02/19/2022, 6:59. [facility], MR, MR LUMBAR SPINE WO CON, 05/02/2021, 17:51. [facility], CR, XR LUMBAR SPINE MIN 4V, 12/08/2017, 13:53. FINDINGS: Bones: 5 [id number] vertebrae are present. There is normal bony alignment. No vertebral body compression fractures. No suspicious bony lesions. Prominent bridging anterior osteophytes can be seen throughout the lumbar spine. There is mild disc space narrowing at L2-L3, with at least moderate disc space narrowing at L3-L4 and L4-L5. Mild disc space narrowing is seen at L5-S1. Age-appropriate lower thoracic spine degenerative changes are seen. Lower lumbar spine facet arthropathy is seen. Soft tissues: Overlying bowel gas pattern is normal. No suspicious soft tissue calcifications. IMPRESSION: Lumbar spine degenerative changes are seen, which are worst by plain film at L3-L4 and L4-L5. Dictated by: Yossi Brown M.D. on 02/25/2022 at 11:58 Approved by: Yossi Brown M.D. on 02/25/2022 at 11:59
--- NOTE | 2022-02-25 09:23 | DI.RAD.S_ITS ---
PROCEDURE: XR HIP W PEL IF DONE RT 2V INDICATIONS: pain in right hip, lumbago w/sciatica, right side TECHNIQUE: AP pelvis with lateral view(s) of the right hip(s). COMPARISON: None. FINDINGS: Bones: No fractures or dislocations. Pelvic ring appears intact. No suspicious bony lesions. Osseous hypertrophy and mild joint space narrowing compatible with moderate right hip osteoarthritis. Soft tissues: The visualized bowel gas pattern is normal. No suspicious soft tissue calcifications. IMPRESSION: Moderate right hip osteoarthritis. Dictated by: Keren Whitley MD, PhD on 02/25/2022 at 13:59 Approved by: Keren Whitley MD, PhD on 02/25/2022 at 14:00
== END ==
PROVIDERS: PCP Nurse Practitioner; Referring Provider Specialist; Visit Provider Specialist
DX: M16.11 Unilateral primary osteoarthritis, right hip (principal); M47.816 Spondylosis without myelopathy or radiculopathy, lumbar region; M54.41 Lumbago with sciatica, right side; M25.551 Pain in right hip; D64.9 Anemia, unspecified; R79.89 Other specified abnormal findings of blood chemistry; I10 Essential (primary) hypertension; E78.1 Pure hyperglyceridemia
CPT/HCPCS: 36415; 72100; 73502; 80053; 82043; 82570; 84443; 85025

== ENCOUNTER → 2022-06-09 06:54 | Outpatient (CLI) | payer MEDICARE, SELFPAY ==
[2022-06-09 09:22] LABS: Add Manual Diff / Slide Review NO; Basophils Absolute Auto 0 /uL (0-100); Basophils Percent Auto 0.7 % (0-2); Eosinophils Absolute Auto 100 /uL (0-450); Eosinophils Percent Auto 2.2 % (2-4); Hemoglobin 13.8 g/dL (13.5-17.5); Lymphocytes Absolute Auto 2200 /uL (1100-4500); Lymphocytes Percent Auto 43.2 % (25-40); Mean Corpuscular HGB Conc 34.5 % (30-36); Mean Corpuscular Volume 89.9 fL (80-100); Monocytes Absolute Auto 600 /uL (0-900); Monocytes Percent Auto 11.1 % (3-14); Neutrophils Absolute Auto 2200 /uL (1500-7000); Neutrophils Percent Auto 42.8 % (50-75); Platelet Count 162 X10^3/uL (150-400); Red Blood Cell Count 4.45 X10^6/uL (4.5-5.9); White Blood Cell Count 5.1 X10^3/uL (4.5-11.0)
[2022-06-09 10:04] LABS: Alanine Aminotransferase 56 IU/L (<50); Albumin 4.1 g/dL (3.5-5.0); Albumin Globulin Ratio 1.4 (1.0-2.8); Alkaline Phosphatase 71 U/L (38-126); Aspartate Aminotransferase 43 IU/L (17-59); BUN Creatinine Ratio 15.9 (6-22); Bilirubin Total 0.7 mg/dL (0.2-1.3); Blood Urea Nitrogen 14 mg/dL (9-20); Calcium 9.2 mg/dL (8.4-10.2); Carbon Dioxide 25 mmol/L (22-32); Chloride 106 mmol/L (98-107); Cholesterol 95 mg/dL (140-199); Estimated Glomerular Filt Rate > 60 mL/min (>60); Glucose 92 mg/dL (80-110); HDL Cholesterol 22 mg/dL (40-60); HEMOLYSIS < 15 (0-50); Potassium 3.9 mmol/L (3.4-5.1); Sodium 140 mmol/L (137-145); Total Protein 7.1 g/dL (6.3-8.2); Triglycerides 406 mg/dL (35-150)
[2022-06-09 10:19] LABS: Prostate Specific Antigen 0.689 ng/mL (0.10-4.00)
[2022-06-09 10:46] LABS: Creatinine Urine Random 261.4 mg/dL; Microalbumi Creatinin Ratio Ur 18.7 ug/mg CR (<30); Microalbumin Urine Random 4.9 mg/dL (0-1.6)
== END ==
PROVIDERS: PCP Nurse Practitioner; Referring Provider Nurse Practitioner; Visit Provider Nurse Practitioner
DX: R80.9 Proteinuria, unspecified (principal); R79.89 Other specified abnormal findings of blood chemistry; D64.9 Anemia, unspecified; Z12.5 Encounter for screening for malignant neoplasm of prostate; E78.1 Pure hyperglyceridemia
CPT/HCPCS: 36415; 80053; 80061; 82043; 82570; 84153; 85025; G0103

== ENCOUNTER → 2022-06-16 08:41 | Outpatient (CLI) | payer MEDICARE, SELFPAY ==
--- NOTE | 2022-06-16 08:41 | DI.US.S_ITS ---
PROCEDURE: US ABDOMEN COMPLETE INDICATIONS: Abnormal CT, persistently elevated LFTs TECHNIQUE: Real-time scanning was performed of the abdominal and retroperitoneal organs, with image documentation. COMPARISON: None. FINDINGS: Liver: The liver is enlarged measuring 20.0 cm in length in the parenchyma is diffusely hyperdense, difficult to penetrate with ultrasound, and hyperechoic. No discrete masses are able to be seen. Gallbladder: The gallbladder contains an 8 mm nonobstructing stone in the neck which is nonmobile. The wall is of normal thickness. No pericholecystic fluid or sonographic Figueroa sign. Biliary ducts: Intrahepatic bile ducts are non-dilated. Extrahepatic bile duct caliber measures four mm. Normal is 6-7 mm or less in diameter, or 10 mm or less post-cholecystectomy. Pancreas: Visualized portions of the pancreas are sonographically normal. Spleen: Spleen is normal in size and homogeneous in echotexture. Kidneys: Kidneys are normal in size and echotexture. Right kidney measures 13.3 cm long; left kidney measures 13.9 cm long. Mild right and moderate to severe left hydronephrosis. Left distended calices are rounded. No perinephric fluid. No solid masses. Aorta: Visualized aorta is normal in caliber at less than 3 cm. Iliacs: Not seen due to bowel gas. IVC: Not seen due to bowel gas. Miscellaneous: No free abdominal fluid. IMPRESSION: 1. Moderate to severe left hydronephrosis and mild right hydronephrosis. Prior CT demonstrated several parapelvic cysts which may account for this appearance. Consider CT KUB for follow-up for any on going clinical concern. 2. Hepatomegaly and coarse, dense hepatic echotexture may indicate steatosis or other intrinsic liver disease. 3. Cholelithiasis. No extrahepatic biliary dilatation. Dictated by: Courtney Ferreira M.D. on 06/16/2022 at 11:54 Approved by: Courtney Ferreira M.D. on 06/16/2022 at 12:00
== END ==
PROVIDERS: Family Provider Nurse Practitioner; PCP Nurse Practitioner; Referring Provider Nurse Practitioner; Visit Provider Nurse Practitioner
DX: N13.30 Unspecified hydronephrosis (principal); R16.0 Hepatomegaly, not elsewhere classified; K80.20 Calculus of gallbladder without cholecystitis without obstruction; R93.2 Abnormal findings on diagnostic imaging of liver and biliary tract; R79.89 Other specified abnormal findings of blood chemistry
CPT/HCPCS: 76700

== ENCOUNTER → 2022-06-18 14:15 | Outpatient (CLI) | payer MEDICARE, SELFPAY ==
--- NOTE | 2022-06-18 14:15 | DI.CT.S_ITS ---
PROCEDURE: CT KIDNEY URETER BLADDER (KUB) INDICATIONS: abnormal US TECHNIQUE: Axial sections were acquired from the lung bases to the pubic symphysis. Coronal and sagittal reformats were performed. For radiation dose reduction, the following was used: automated exposure control, adjustment of mA and/or kV according to patient size. COMPARISON: [facility], CT, CT KIDNEY URETER BLADDER (KUB), 10/11/2020, 12:14. [facility], US, US ABDOMEN COMPLETE, 06/16/2022, 8:50. [facility], CT, CT KIDNEY URETER BLADDER (KUB), 04/29/2021, 12:34. FINDINGS: Image quality: Excellent. Lung bases: Unremarkable. Heart: No significant findings. URINARY: Right Kidney: No stones or hydronephrosis. Small hyperdense cyst. Small simple cortical cyst. Multiple peripelvic cysts. These findings are similar. Right Ureter: No hydroureter. Left Kidney: At least 2 small nonobstructing kidney stones, unchanged. No hydronephrosis. Multiple peripelvic cysts are unchanged. Left Ureter: No hydroureter. Bladder: Normal wall thickness. No stones. ABDOMEN: Liver: Hepatic steatosis. Gallbladder: Not distended. Layering gallstones. Biliary ducts: Unremarkable. Pancreas: Unremarkable. Spleen: Unremarkable. Adrenal Glands: Unremarkable. Stomach and Bowel: Stomach, small bowel loops, and colon are unremarkable. Diverticulosis. The appendix is not dilated. Peritoneum: No abnormal intraperitoneal fluid. No free air. Ventral Wall: No hernia. Abdominal Nodes: No enlarged retroperitoneal or mesenteric lymph nodes. Vessels: Aorta and inferior vena cava are normal in size. PELVIS: Pelvic Organs: Unremarkable. Pelvic Nodes: Unremarkable. Miscellaneous: No inguinal hernias are seen. Bones: No suspicious lesion. IMPRESSION: 1. Numerous bilateral peripelvic cysts are similar. 2. No obstructing kidney stones demonstrated. 3. Small nonobstructing left kidney stones. Dictated by: Homero Vivas M.D. on 06/18/2022 at 17:07 Approved by: Homero Vivas M.D. on 06/18/2022 at 17:18
== END ==
PROVIDERS: Family Provider Nurse Practitioner; PCP Nurse Practitioner; Referring Provider Nurse Practitioner; Visit Provider Nurse Practitioner
DX: N13.30 Unspecified hydronephrosis (principal); N28.1 Cyst of kidney, acquired; N20.0 Calculus of kidney; K80.20 Calculus of gallbladder without cholecystitis without obstruction; K76.0 Fatty (change of) liver, not elsewhere classified
CPT/HCPCS: 74176

== ENCOUNTER → 2022-07-17 14:14 | Outpatient (CLI) | payer MEDICARE, SELFPAY ==
[2022-07-17 16:45] LABS: Hematocrit 39.2 % (41-53); Hemoglobin 13.3 g/dL (13.5-17.5)
[2022-07-17 17:26] LABS: BUN Creatinine Ratio 19.3 (6-22); Blood Urea Nitrogen 17 mg/dL (9-20); Calcium 9.3 mg/dL (8.4-10.2); Carbon Dioxide 27 mmol/L (22-32); Chloride 103 mmol/L (98-107); Estimated Glomerular Filt Rate > 60 mL/min (>60); Glucose 72 mg/dL (80-110); HEMOLYSIS < 15 (0-50); Potassium 4.2 mmol/L (3.4-5.1); Sodium 139 mmol/L (137-145)
[2022-07-17 17:28] LABS: Creatinine Urine Random 118.9 mg/dL
[2022-07-17 17:32] LABS: Protein (Total) Urine Random < 5 mg/dL (0-12); Protein Creatinine Ratio Urine 0.04 GRAM/24H
== END ==
PROVIDERS: Family Provider Nurse Practitioner; PCP Nurse Practitioner; Referring Provider Student in an Organized Health Care Education/Training Program; Visit Provider Student in an Organized Health Care Education/Training Program
DX: N05.9 Unspecified nephritic syndrome with unspecified morphologic changes (principal); D64.9 Anemia, unspecified; R80.9 Proteinuria, unspecified
CPT/HCPCS: 36415; 80048; 82570; 84156; 85014; 85018

== ENCOUNTER → 2022-09-04 06:57 | Outpatient (CLI) | payer MEDICARE, SELFPAY ==
[2022-09-04 08:45] LABS: Alanine Aminotransferase 70 IU/L (<50); Albumin 4.2 g/dL (3.5-5.0); Albumin Globulin Ratio 1.5 (1.0-2.8); Alkaline Phosphatase 57 U/L (38-126); Aspartate Aminotransferase 52 IU/L (17-59); BUN Creatinine Ratio 18.5 (6-22); Bilirubin Total 0.9 mg/dL (0.2-1.3); Blood Urea Nitrogen 17 mg/dL (9-20); Calcium 9.1 mg/dL (8.4-10.2); Carbon Dioxide 24 mmol/L (22-32); Chloride 103 mmol/L (98-107); Cholesterol 90 mg/dL (140-199); Estimated Glomerular Filt Rate > 60 mL/min (>60); Globulin 2.8 g/dL (1.7-4.1); Glucose 88 mg/dL (80-110); HDL Cholesterol 27 mg/dL (40-60); HEMOLYSIS < 15 (0-50); LDL Cholesterol Calculated 26 mg/dL (<100); Potassium 4.1 mmol/L (3.4-5.1); Sodium 139 mmol/L (137-145); Triglycerides 187 mg/dL (35-150)
[2022-09-04 08:55] LABS: Microalbumi Creatinin Ratio Ur 13.5 ug/mg CR (<30); Microalbumin Urine Random 2.8 mg/dL (0-1.6)
== END ==
PROVIDERS: Family Provider Nurse Practitioner; PCP Nurse Practitioner; Referring Provider Nurse Practitioner; Visit Provider Nurse Practitioner
DX: E78.2 Mixed hyperlipidemia (principal); K46.9 Unspecified abdominal hernia without obstruction or gangrene; R79.89 Other specified abnormal findings of blood chemistry; Z79.899 Other long term (current) drug therapy
CPT/HCPCS: 36415; 80053; 80061; 82043; 82570

== ENCOUNTER 2022-09-16 09:00 | Outpatient (RCR) | payer MEDICARE, SELFPAY ==
--- NOTE | 2022-06-12 18:21 | PT.OIE ---
Current Diagnoses Nerve root and plexus disorder, unspecified (06/12/22) Spondylosis without myelopathy or radiculopathy, lumbosacral region (06/12/22) Sciatica, right side (06/12/22) Anesthesia of skin (06/12/22) Past Medical History (Last Updated 06/11/22 @ 11:59 by CHRISTOPHER Colvin) Anemia Atrial fibrillation (~2013) Benign neoplasm umbilicus skin Benign prostatic hyperplasia (10/13/11) Carpal tunnel syndrome (Unknown) Cervical spinal stenosis Chickenpox (Unknown) Elevated LFTs Elevated triglycerides with high cholesterol Facet arthropathy, lumbosacral High triglycerides (Unknown) History of colonic polyps (10/13/11) Hypertension (Unknown) Left knee pain Macular degeneration Measles (Unknown) Microalbuminuria Mumps (Unknown) Nerve root compression Nightmares Obstructive sleep apnea (08/09/14) Osteoarthritis (Unknown) 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) Renal calcification Rheumatic fever (Unknown) Right low back pain Right sciatic nerve pain Right-sided thoracic back pain Shoulder pain (Unknown) Spinal stenosis (Unknown) Toenail fungus Past Surgical History (Last Reviewed 06/11/22 @ 11:40 by CHRISTOPHER Colvin) History of carpal tunnel repair History of cataract removal with insertion of prosthetic lens History of cervical discectomy (10/2016) Status post arthroscopy Visit Care Team Role Provider Type Kali Manzo MD Non-Staff Specialty: Physical Medicine and Rehab Address: [address] [place] [address], [id number] Email: CHRISTOPHER Colvin Attending Provider Advanced Director Of Emergency Nursing Family Provider Primary Care Provider Referring Provider Specialty: Family Practice Address: [address] [place] [address], [id number] Email: [email or web address] Physical Therapy Initial Evaluation PT-OP-A Visit Information Start: 06/12/22 08:12 Freq: Status: Active Protocol: Document 06/12/22 10:36 LRN (Rec: 06/12/22 11:35 LRN [id number]) Out-Patient Physical Therapy Visit Information Visit Information Visit Type Initial Evaluation Visit Start Time 10:36 Visit Stop Time 11:32 Total Visit Minutes 56 Visit Number 1 Evaluation Information Evaluation Date 06/12/22 Precautions Precautions Currently being treated for kidney/liver dysfunction, Titanium plate in neck 5 yrs ago due to arthritis from neck injury in 1965. PT-OP-B Current Condition Start: 06/12/22 08:12 Freq: Status: Active Protocol: Document 06/12/22 10:36 LRN (Rec: 06/12/22 11:35 LRN [id number]) Current Condition History of Current Condition Onset Date Off/on forever, really bad last year Current Complaints Pain in R hip, lateral LE & foot & top/bottom of all 5 toes. History of Current Condition Pt reports chronic R Sciatic pain that has worsened in the past year. He has had 2 shots in the back (by Dr Manzo) and each time pain was relieved in the R hip. First shot were given 6 months ago and 3 weeks later had 2nd shot . Pt is scheduled to see Dr Manzo for follow up visit ( Arya, [employer]ch[employer]) in 4 days (Thursday) . A couple weeks ago his R toes started to go numb. Pt denies numbness of feet previously. States his pain is light in the hip and leg, but more pain in the foot and toes. Pt sometimes described his toe pain as numbness, and at other times described it as pain. Prior Treatments and Tests X-rays 02/25/22: Lumbar spine degenerative changes are seen, which are worst by plain film at L3-L4 and L4-L5. Hip X-ray 02/25/22: Moderate right hip osteoarthritis. MRI spine 02/19/22: Multilevel foraminal narrowing most severe at L5-S1 predominantly secondary to facet arthropathy. Future Testing and Treatments Planned Seeing Dr Manzo for follow up (Arya, [employer]ch[employer]) in 4 days (Thursday) . 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 Treatment Goals Patient/Caregiver Goals Pt goals with therapy is to be able get rid of his R hip pain to be able to walk to mailbox (100 steps) and back up a sligh incline, (feels he can do stairs okay). States he is SOB on return from mailbox. Personal Factors Other Personal Factors That May Effect Titanium plate in neck 5 yrs Therapy/Recovery ago due to arthritis from neck injury in 1965. Currently being treated for kidney/liver dysfunction. PT-OP-C Subjective Start: 06/12/22 08:12 Freq: Status: Active Protocol: Document 06/12/22 10:36 LRN (Rec: 06/12/22 11:35 LRN [id number]) Patient Questionnaires Foot & Ankle Ability Measure- ADL and Sports FAAM-ADL Score 55 FAAM-ADL Impairment 20 to 39% Impaired (Score 50- 66) FAAM-Sport Score 13 FAAM-Sport Impairment 40 to 59% Impaired (Score 12- 18) Lower Extremity Functional Scale LEFS Score 47 LEFS Impairment 40 to 59% Impaired (Score 32- 47) Oswestry Low Back Index Oswestry Score 28 Oswestry Impairment 20 to 39% Impaired (Score 20- 39) OP-PT Pain Assessment Pain Assessment Grid Paper Pain Assessment Grid Completed Yes Location R LE Pain Location Details R hip and lateral LE into lateral foot and toes Intensity 2 Scale Used Numeric (0 - 10) Description Radiating Description- Other numbing in toes Frequency Constant PT-OP-G Mobility & Gait Start: 06/12/22 08:12 Freq: Status: Active Protocol: Document 06/12/22 10:36 LRN (Rec: 06/12/22 11:35 LRN [id number]) OP Mobility Evaluation Bed Mobility Supine to and from Sit Independent without pain. Transfers Sit to Stand Very little pain with transfer OP Gait Assessment Gait Gait Assistance Required: Independent Assistive Devices Assistive Device None Gait Deviations General Gait Pattern Decreased Stride Length, Decreased Feet Clearance, Flexed Trunk,Lateral Trunk Lean Factors Limiting Gait Function Factors Limiting Gait Function Decreased Sensation,Pain Comments Gait Comments Short steps, poor toe off, lateral trunk sway. PT-OP-H Neuro Start: 06/12/22 08:12 Freq: Status: Active Protocol: Document 06/12/22 10:36 LRN (Rec: 06/12/22 11:35 LRN [id number]) Sensation Evaluation Gross Sensation Gross Sensation Right LE Impaired Sensation Description Numbness Comments Summary Comments Numbness in R toes. Deep Tendon Reflex & Clonus Assessment Deep Tendon Reflex Left Patellar Deep Tendon Reflex 0 Absent Right Patellar Deep Tendon Reflex 1+ Diminished PT-OP-J Posture/Palpation/Skin Start: 06/12/22 08:12 Freq: Status: Active Protocol: Document 06/12/22 10:36 LRN (Rec: 06/12/22 11:35 LRN [id number]) Posture Evaluation Position Standing L-Spine Posture Flattened Pelvis Posture Anteriorly Tilted Weight Distribution Weight Shifted Right Hip Posture (L) Flexed,(R) Flexed Knee Posture (L) Genu Varus,(R) Genu Varus Comments Posture Comments Stands 15 degs hip flexion, R shoulder is low, protruding abdomen. Palpation Assessment Location Leg length Palpation Location Medial malleolus: Supine - R leg short, Long sit-Equal leg lengths Palpation Details R posteriorly rotated innominate. PT-OP-K Range of Motion Start: 06/12/22 08:12 Freq: Status: Active Protocol: Document 06/12/22 10:36 LRN (Rec: 06/12/22 11:35 LRN [id number]) Lumbar Spine Range of Motion Lumbar Spine Active Degrees Testing Position Standing Flexion 50 Extension 8 Rotation Left 2 Rotation Right 0 Lateral Flexion Left 7 Lateral Flexion Right 2 ROM Limitations Soft Tissue Tightness,Pain Comments R buttock pain with trunk flexion only. Hip Goniometric Range of Motion Hip Right Passive Testing Position Supine Straight Leg Raise 70 Internal Rotation 0 External Rotation 45 Left Passive Testing Position Supine Straight Leg Raise 70 Internal Rotation 0 External Rotation 45 PT-OP-L Special Tests Start: 06/12/22 08:12 Freq: Status: Active Protocol: Document 06/12/22 10:36 LRN (Rec: 06/12/22 11:35 LRN [id number]) Special Tests Lumbar Spine Special Tests Straight Leg Raise Test Results - Vertical Spine Loading Test Results - Hip Special Tests Posterior Labral Test Test Results - Anterior Labral Test Test Results - Scour Test Test Results - Stinchfield Resisted Hip Flexion Test Results - right Comments Pain anterior hip YONG Test Results + right Comments Pain posterior hip Log Roll Test Test Results - Comments Tight IR PT-OP-M Strength Start: 06/12/22 08:12 Freq: Status: Active Protocol: Document 06/12/22 10:36 LRN (Rec: 06/12/22 11:35 LRN [id number]) Trunk Strength Trunk Manual Muscle Testing Testing Position Supine Flexion 4 Good Core Stabilization Pt is not able to maintain core stability with testing of hip flexion. Knee Strength Knee Manual Muscle Testing Right Comments Generally 5/5 Left Comments Generally 5/5 Ankle/Foot Strength Ankle and Foot Manual Muscle Testing Right Comments Ankle and toes DF - generally 5/5 Left Comments Ankle and toes DF - generally 5/5 PT-OP-Q Treatments Start: 06/12/22 08:12 Freq: Status: Active Protocol: Document 06/12/22 10:36 LRN (Rec: 06/12/22 11:35 LRN [id number]) Therapeutic Exercises Sitting Exercises SKTC Sitting Exercise Name Verbal I/S in SKTC stretch Piriformis stretch Sitting Exercise Name Side sitting for Piriformis stretch Side right Reps/Minutes 3' Self-Care/Home Management Treatment Education Other Education Discussed results of evaluation, goals, and plan of care (POC). Pt agreeable to goals and POC. Activities Self-Care/Home Management Activities Pt I/S in HEP: Sitting piriformis stretch and SKTC stretch, holding 10-20 secs. PT-OP-T Assessment and Plan Start: 06/12/22 08:12 Freq: Status: Active Protocol: Document 06/12/22 10:36 LRN (Rec: 06/12/22 11:35 LRN [id number]) Physical Therapy Assessment Rehab Potential Rehabilitation Potential Good Evaluation Complexity Number of Personal Factors/Comorbidities 3 or More Number of Body Systems Impaired 4 or More Clinical Presentation at Evaluation Evolving Impairments Impairments Activity Tolerance,Gait,Pain, Posture,ROM,Soft Tissue Mobility,Strength Goals Three Impairment Numbness and pain of the RLE and toes Impairment Pain in RLE and toes is 2/10. R Toes have a numb feeling. Short Term Goal (STG) Pt will be independent with a hip stretch HEP to improve hip IR and trunk flexion mobility . Mcc Goal (LTG) Improve sensation in is R toes and eliminate pain to improve his gait mechanics, reducing his trunk sway. LTG Duration 09/10/22 Two Impairment Pain walking is 2/10. Short Term Goal (STG) Pt is able get rid of his R hip pain to be able to walk to mailbox (100 steps) and back without increasing his pain. STG Duration 07/26/22 Analytics Senior Manager Goal (LTG) Pt will be able to ambulate back up a slight incline from his mailbox with less SOB. LTG Duration 09/10/22 One Impairment Lacks appropriate self care HEP. Short Term Goal (STG) Pt will be educated in proper body mechanics for transfer and ADLs, and proper sitting and standing posture. STG Duration 07/26/22 Analytics Senior Manager Goal (LTG) Pt will be independent and consistent with a self care HEP to manage his R sciatic pain and numbness of the toes. LTG Duration 09/10/22 Assessment Summary Assessment Pt is an 81 yo male who presents with mechanical dysfunction of the pelvis (R posteriorly rotated innominate ) and lumbar spine (poor standing posture with flattened L/S and anteriorly tilted pelvis with protruding abdomen). The pt has soft tissue dysfunction in the hip and lumbar region also leading to dysfunctional gait with notable trunk sway. He is extremely limited in hip IR mobility and lumbar mobility into flexion. The pt will benefit from skilled physical therapy for focus on decreasing soft tissue muscle guarding and pain, improving lumbar/hip mobility and for hip/core/pelvic stabilization. Pt education will be focused on proper transfers, self care and home exercise. Physical Therapy Plan Frequency and Duration Frequency of Treatment 2x/Week Plan of Care Start Date 06/12/22 Plan of Care End Date 07/26/22 Therapeutic Interventions Therapeutic Interventions Gait Training,Home Exercise Program,Joint Mobilizations, Manual Therapy,Neuromuscular Re-education,Patient/Caregiver Education,Self-Care/Home Management,Soft Tissue Mobilization,Therapeutic Activities,Therapeutic Exercises Modalities Cold Pack/Ice Massage,Electric Stimulation,Hot Packs, Ultrasound Next Visit Focus/Plan Next Note Type Treatment Note Next Visit Plan R sciatic pain and L4-L5 radicular neural changes rehabilitation. Assess trunk and hip strength. Review HEP: Sitting piriformis stretch and SKTC. Pt education in proper back care (body mechanics-ADLS, transfers, pain management) JMT to correct posteriorly rotate R innominate and sacral dysfunction. Manual therapy: STM L/S paraspinals and Hip rotators.
--- NOTE | 2022-06-12 18:21 | PT.OPPOC ---
Physical, Occupational & Speech Therapy At [facility] Current Diagnoses Nerve root and plexus disorder, unspecified (06/12/22) Spondylosis without myelopathy or radiculopathy, lumbosacral region (06/12/22) Sciatica, right side (06/12/22) Anesthesia of skin (06/12/22) Visit Care Team Role Provider Type Kali Manzo MD Non-Staff Specialty: Physical Medicine and Rehab Address: [address] [place] [address], [id number] Email: CHRISTOPHER Colvin Attending Provider Advanced Pocket Builder Family Provider Primary Care Provider Referring Provider Specialty: Family Practice Address: [address] [place] [address], [id number] Email: [email or web address] Plan Of Care PT-OP-T Assessment and Plan Start: 06/12/22 08:12 Freq: Status: Active Protocol: Document 06/12/22 10:36 LRN (Rec: 06/12/22 11:35 LRN [id number]) Physical Therapy Assessment Rehab Potential Rehabilitation Potential Good Evaluation Complexity Number of Personal Factors/Comorbidities 3 or More Number of Body Systems Impaired 4 or More Clinical Presentation at Evaluation Evolving Impairments Impairments Activity Tolerance,Gait,Pain, Posture,ROM,Soft Tissue Mobility,Strength Goals Three Impairment Numbness and pain of the RLE and toes Impairment Pain in RLE and toes is 2/10. R Toes have a numb feeling. Short Term Goal (STG) Pt will be independent with a hip stretch HEP to improve hip IR and trunk flexion mobility . Heavy Duty Mechanic Goal (LTG) Improve sensation in is R toes and eliminate pain to improve his gait mechanics, reducing his trunk sway. LTG Duration 09/10/22 Two Impairment Pain walking is 2/10. Short Term Goal (STG) Pt is able get rid of his R hip pain to be able to walk to mailbox (100 steps) and back without increasing his pain. STG Duration 07/26/22 Heavy Duty Mechanic Goal (LTG) Pt will be able to ambulate back up a slight incline from his mailbox with less SOB. LTG Duration 09/10/22 One Impairment Lacks appropriate self care HEP. Short Term Goal (STG) Pt will be educated in proper body mechanics for transfer and ADLs, and proper sitting and standing posture. STG Duration 07/26/22 Skilled Nursing Goal (LTG) Pt will be independent and consistent with a self care HEP to manage his R sciatic pain and numbness of the toes. LTG Duration 09/10/22 Assessment Summary Assessment Pt is an 81 yo male who presents with mechanical dysfunction of the pelvis (R posteriorly rotated innominate ) and lumbar spine (poor standing posture with flattened L/S and anteriorly tilted pelvis with protruding abdomen). The pt has soft tissue dysfunction in the hip and lumbar region also leading to dysfunctional gait with notable trunk sway. He is extremely limited in hip IR mobility and lumbar mobility into flexion. The pt will benefit from skilled physical therapy for focus on decreasing soft tissue muscle guarding and pain, improving lumbar/hip mobility and for hip/core/pelvic stabilization. Pt education will be focused on proper transfers, self care and home exercise. Physical Therapy Plan Frequency and Duration Frequency of Treatment 2x/Week Plan of Care Start Date 06/12/22 Plan of Care End Date 07/26/22 Therapeutic Interventions Therapeutic Interventions Gait Training,Home Exercise Program,Joint Mobilizations, Manual Therapy,Neuromuscular Re-education,Patient/Caregiver Education,Self-Care/Home Management,Soft Tissue Mobilization,Therapeutic Activities,Therapeutic Exercises Modalities Cold Pack/Ice Massage,Electric Stimulation,Hot Packs, Ultrasound Next Visit Focus/Plan Next Note Type Treatment Note Next Visit Plan R sciatic pain and L4-L5 radicular neural changes rehabilitation. Assess trunk and hip strength. Review HEP: Sitting piriformis stretch and SKTC. Pt education in proper back care (body mechanics-ADLS, transfers, pain management) JMT to correct posteriorly rotate R innominate and sacral dysfunction. Manual therapy: STM L/S paraspinals and Hip rotators. Plan of Care Dates Plan of Care Start Date 06/12/22 Plan of Care End Date 07/26/22 Electronically Signed by: Jeana Gonsalez, PT 06/12/22 2016 If you are in agreement with this Plan of Care, please return a signed and dated copy. I have reviewed this Plan of Care and certify that the skilled therapy services above are required to meet the patient?s needs. Physician Signature Date Printed Name and Credentials Clinical Instructor Signature Printed Name and Credentials
--- NOTE | 2022-06-17 16:07 | PT.OTN ---
Current Diagnoses Nerve root and plexus disorder, unspecified (06/17/22) Spondylosis without myelopathy or radiculopathy, lumbosacral region (06/17/22) Sciatica, right side (06/17/22) Anesthesia of skin (06/17/22) Physical Therapy Treatment Note PT-OP-A Visit Information Start: 06/12/22 08:12 Freq: Status: Active Protocol: Document 06/17/22 15:15 LRN (Rec: 06/17/22 16:06 LRN [id number]) Out-Patient Physical Therapy Visit Information Visit Information Visit Type Treatment Note Visit Start Time 15:16 Visit Stop Time 15:59 Total Visit Minutes 43 Visit Number 2 Evaluation Information Evaluation Date 06/12/22 Precautions Precautions Currently being treated for kidney/liver dysfunction, Titanium plate in neck 5 yrs ago due to arthritis from neck injury in 1965. PT-OP-B Current Condition Start: 06/12/22 08:12 Freq: Status: Active Protocol: Document 06/12/22 10:36 LRN (Rec: 06/12/22 11:35 LRN [id number]) Current Condition History of Current Condition Onset Date Off/on forever, really bad last year Current Complaints Pain in R hip, lateral LE & foot & top/bottom of all 5 toes. History of Current Condition Pt reports chronic R Sciatic pain that has worsened in the past year. He has had 2 shots in the back (by Dr Manzo) and each time pain was relieved in the R hip. First shot were given 6 months ago and 3 weeks later had 2nd shot . Pt is scheduled to see Dr Manzo for follow up visit ( Arya, Sports and Market Manager) in 4 days (Thursday) . A couple weeks ago his R toes started to go numb. Pt denies numbness of feet previously. States his pain is light in the hip and leg, but more pain in the foot and toes. Pt sometimes described his toe pain as numbness, and at other times described it as pain. Prior Treatments and Tests X-rays 02/25/22: Lumbar spine degenerative changes are seen, which are worst by plain film at L3-L4 and L4-L5. Hip X-ray 02/25/22: Moderate right hip osteoarthritis. MRI spine 02/19/22: Multilevel foraminal narrowing most severe at L5-S1 predominantly secondary to facet arthropathy. Future Testing and Treatments Planned Seeing Dr Manzo for follow up (Arya, Sports and Market Manager) in 4 days (Thursday) . 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 Treatment Goals Patient/Caregiver Goals Pt goals with therapy is to be able get rid of his R hip pain to be able to walk to mailbox (100 steps) and back up a sligh incline, (feels he can do stairs okay). States he is SOB on return from mailbox. Personal Factors Other Personal Factors That May Effect Titanium plate in neck 5 yrs Therapy/Recovery ago due to arthritis from neck injury in 1965. Currently being treated for kidney/liver dysfunction. PT-OP-C Subjective Start: 06/12/22 08:12 Freq: Status: Active Protocol: Document 06/17/22 15:15 LRN (Rec: 06/17/22 16:06 LRN [id number]) OP-PT Subjective Patient Comments Patient Comments Had a busy w/e, so didn't do ex's. Did leg ex/s yesterday. PT-OP-G Mobility & Gait Start: 06/12/22 08:12 Freq: Status: Active Protocol: Document 06/12/22 10:36 LRN (Rec: 06/12/22 11:35 LRN [id number]) OP Mobility Evaluation Bed Mobility Supine to and from Sit Independent without pain. Transfers Sit to Stand Very little pain with transfer OP Gait Assessment Gait Gait Assistance Required: Independent Assistive Devices Assistive Device None Gait Deviations General Gait Pattern Decreased Stride Length, Decreased Feet Clearance, Flexed Trunk,Lateral Trunk Lean Factors Limiting Gait Function Factors Limiting Gait Function Decreased Sensation,Pain Comments Gait Comments Short steps, poor toe off, lateral trunk sway. PT-OP-H Neuro Start: 06/12/22 08:12 Freq: Status: Active Protocol: Document 06/12/22 10:36 LRN (Rec: 06/12/22 11:35 LRN [id number]) Sensation Evaluation Gross Sensation Gross Sensation Right LE Impaired Sensation Description Numbness Comments Summary Comments Numbness in R toes. Deep Tendon Reflex & Clonus Assessment Deep Tendon Reflex Left Patellar Deep Tendon Reflex 0 Absent Right Patellar Deep Tendon Reflex 1+ Diminished PT-OP-J Posture/Palpation/Skin Start: 06/12/22 08:12 Freq: Status: Active Protocol: Document 06/12/22 10:36 LRN (Rec: 06/12/22 11:35 LRN [id number]) Posture Evaluation Position Standing L-Spine Posture Flattened Pelvis Posture Anteriorly Tilted Weight Distribution Weight Shifted Right Hip Posture (L) Flexed,(R) Flexed Knee Posture (L) Genu Varus,(R) Genu Varus Comments Posture Comments Stands 15 degs hip flexion, R shoulder is low, protruding abdomen. Palpation Assessment Location Leg length Palpation Location Medial malleolus: Supine - R leg short, Long sit-Equal leg lengths Palpation Details R posteriorly rotated innominate. PT-OP-K Range of Motion Start: 06/12/22 08:12 Freq: Status: Active Protocol: Document 06/12/22 10:36 LRN (Rec: 06/12/22 11:35 LRN [id number]) Lumbar Spine Range of Motion Lumbar Spine Active Degrees Testing Position Standing Flexion 50 Extension 8 Rotation Left 2 Rotation Right 0 Lateral Flexion Left 7 Lateral Flexion Right 2 ROM Limitations Soft Tissue Tightness,Pain Comments R buttock pain with trunk flexion only. Hip Goniometric Range of Motion Hip Right Passive Testing Position Supine Straight Leg Raise 70 Internal Rotation 0 External Rotation 45 Left Passive Testing Position Supine Straight Leg Raise 70 Internal Rotation 0 External Rotation 45 PT-OP-L Special Tests Start: 06/12/22 08:12 Freq: Status: Active Protocol: Document 06/12/22 10:36 LRN (Rec: 06/12/22 11:35 LRN [id number]) Special Tests Lumbar Spine Special Tests Straight Leg Raise Test Results - Vertical Spine Loading Test Results - Hip Special Tests Posterior Labral Test Test Results - Anterior Labral Test Test Results - Scour Test Test Results - Stinchfield Resisted Hip Flexion Test Results - right Comments Pain anterior hip YONG Test Results + right Comments Pain posterior hip Log Roll Test Test Results - Comments Tight IR PT-OP-M Strength Start: 06/12/22 08:12 Freq: Status: Active Protocol: Document 06/17/22 15:15 LRN (Rec: 06/17/22 16:06 LRN [id number]) Hip Strength Hip Manual Muscle Testing Right Flexion (L2) 3+ Fair+ Extension (S1) 2 Poor Abduction 5 Normal Adduction 1 Trace Left Flexion (L2) 5 Normal Extension (S1) 5 Normal Abduction 5 Normal Adduction 1 Trace PT-OP-Q Treatments Start: 06/12/22 08:12 Freq: Status: Active Protocol: Document 06/17/22 15:15 LRN (Rec: 06/17/22 16:06 LRN [id number]) Therapeutic Exercises Supine Exercises SKTC stretch Supine Exercise Name R>L Warm up heels slides before doing SKTC Side bilateral Reps/Minutes 7' Comments Phys assist needed to get KTC stretch Sidelying Exercises Clamshell Sidelying Exercise Name Clamshell/TA Side bilateral Reps/Minutes 15x TA tightening Sidelying Exercise Name TA tightening Side bilateral Sitting Exercises SKTC Sitting Exercise Name Verbal I/S in SKTC stretch Piriformis stretch Sitting Exercise Name Side sitting for Piriformis stretch Side right Reps/Minutes 6' Comments Extra time to review R sided stretch Manual Therapy Treatment Soft Tissue Mobilization R Upper Gluteals Body Location R Upper Gluteals and R sacral border Mobilization Type Strumming Intensity/Depth Moderate Body Position Prone Low Back Body Location Evans QL & L/S Paraspinals. Mobilization Type Strumming Intensity/Depth Moderate Body Position Prone PT-OP-T Assessment and Plan Start: 06/12/22 08:12 Freq: Status: Active Protocol: Document 06/17/22 15:15 LRN (Rec: 06/17/22 16:06 LRN [id number]) Physical Therapy Assessment Goals Three Impairment Numbness and pain of the RLE and toes Impairment Pain in RLE and toes is 2/10. R Toes have a numb feeling. Short Term Goal (STG) Pt will be independent with a hip stretch HEP to improve hip IR and trunk flexion mobility . STG Duration 07/26/22 Dot Etcher Apprentice Goal (LTG) Improve sensation in is R toes and eliminate pain to improve his gait mechanics, reducing his trunk sway. LTG Duration 09/10/22 Two Impairment Pain walking is 2/10. Short Term Goal (STG) Pt is able get rid of his R hip pain to be able to walk to mailbox (100 steps) and back without increasing his pain. STG Duration 07/26/22 [facility] Goal (LTG) Pt will be able to ambulate back up a slight incline from his mailbox with less SOB. LTG Duration 09/10/22 One Impairment Lacks appropriate self care HEP. Short Term Goal (STG) Pt will be educated in proper body mechanics for transfer and ADLs, and proper sitting and standing posture. STG Duration 07/26/22 Dot Etcher Apprentice Goal (LTG) Pt will be independent and consistent with a self care HEP to manage his R sciatic pain and numbness of the toes. 06/17/22: I/S HEP: Sitting Piriformis stretch and supine SKTC stretch . LTG Duration 09/10/22 progressed 06/17/22 Assessment Summary Assessment Pt had good recall of sitting piriformis stretch and SKTC. Pt had pain on R side with R SKTC stretch. Physical Therapy Plan Frequency and Duration Frequency of Treatment 2x/Week Plan of Care Start Date 06/12/22 Plan of Care End Date 07/26/22 Next Visit Focus/Plan Next Note Type Treatment Note Next Visit Plan R sciatic pain and L4-L5 radicular neural changes rehabilitation. Assess trunk and hip strength. Pt education in proper back care (body mechanics-ADLS, transfers, pain management) JMT to correct posteriorly rotate R innominate and sacral dysfunction. Manual therapy: STM L/S paraspinals and Hip rotators.
--- NOTE | 2022-06-24 18:46 | PT.OTN ---
Current Diagnoses Nerve root and plexus disorder, unspecified (06/24/22) Spondylosis without myelopathy or radiculopathy, lumbosacral region (06/24/22) Sciatica, right side (06/24/22) Anesthesia of skin (06/24/22) Physical Therapy Treatment Note PT-OP-A Visit Information Start: 06/12/22 08:12 Freq: Status: Active Protocol: Document 06/24/22 10:36 LRN (Rec: 06/24/22 11:17 LRN [id number]) Out-Patient Physical Therapy Visit Information Visit Information Visit Type Treatment Note Visit Start Time 10:36 Visit Stop Time 11:17 Total Visit Minutes 41 Visit Number 3 Evaluation Information Evaluation Date 06/12/22 Precautions Precautions Currently being treated for kidney/liver dysfunction, Titanium plate in neck 5 yrs ago due to arthritis from neck injury in 1965. PT-OP-B Current Condition Start: 06/12/22 08:12 Freq: Status: Active Protocol: Document 06/12/22 10:36 LRN (Rec: 06/12/22 11:35 LRN [id number]) Current Condition History of Current Condition Onset Date Off/on forever, really bad last year Current Complaints Pain in R hip, lateral LE & foot & top/bottom of all 5 toes. History of Current Condition Pt reports chronic R Sciatic pain that has worsened in the past year. He has had 2 shots in the back (by Dr Manzo) and each time pain was relieved in the R hip. First shot were given 6 months ago and 3 weeks later had 2nd shot . Pt is scheduled to see Dr Manzo for follow up visit ( Arya, Sports and Cushion Mat Maker) in 4 days (Thursday) . A couple weeks ago his R toes started to go numb. Pt denies numbness of feet previously. States his pain is light in the hip and leg, but more pain in the foot and toes. Pt sometimes described his toe pain as numbness, and at other times described it as pain. Prior Treatments and Tests X-rays 02/25/22: Lumbar spine degenerative changes are seen, which are worst by plain film at L3-L4 and L4-L5. Hip X-ray 02/25/22: Moderate right hip osteoarthritis. MRI spine 02/19/22: Multilevel foraminal narrowing most severe at L5-S1 predominantly secondary to facet arthropathy. Future Testing and Treatments Planned Seeing Dr Manzo for follow up (Arya, Sports and Cushion Mat Maker) in 4 days (Thursday) . 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 Treatment Goals Patient/Caregiver Goals Pt goals with therapy is to be able get rid of his R hip pain to be able to walk to mailbox (100 steps) and back up a sligh incline, (feels he can do stairs okay). States he is SOB on return from mailbox. Personal Factors Other Personal Factors That May Effect Titanium plate in neck 5 yrs Therapy/Recovery ago due to arthritis from neck injury in 1965. Currently being treated for kidney/liver dysfunction. PT-OP-C Subjective Start: 06/12/22 08:12 Freq: Status: Active Protocol: Document 06/24/22 10:36 LRN (Rec: 06/24/22 11:17 LRN [id number]) OP-PT Subjective Patient Comments Patient Comments Doesn't have much pain at all. Test yesterday in [place] for Sciatic nerve and found everything to be okay. All Toes are numb on R side. Has a dull ache down R lateral LE to foot. Has had 2 injections previously because the pain was so bad. One more injection is planned. No date yet, needs insurance approval . PT-OP-G Mobility & Gait Start: 06/12/22 08:12 Freq: Status: Active Protocol: Document 06/12/22 10:36 LRN (Rec: 06/12/22 11:35 LRN [id number]) OP Mobility Evaluation Bed Mobility Supine to and from Sit Independent without pain. Transfers Sit to Stand Very little pain with transfer OP Gait Assessment Gait Gait Assistance Required: Independent Assistive Devices Assistive Device None Gait Deviations General Gait Pattern Decreased Stride Length, Decreased Feet Clearance, Flexed Trunk,Lateral Trunk Lean Factors Limiting Gait Function Factors Limiting Gait Function Decreased Sensation,Pain Comments Gait Comments Short steps, poor toe off, lateral trunk sway. PT-OP-H Neuro Start: 06/12/22 08:12 Freq: Status: Active Protocol: Document 06/12/22 10:36 LRN (Rec: 06/12/22 11:35 LRN [id number]) Sensation Evaluation Gross Sensation Gross Sensation Right LE Impaired Sensation Description Numbness Comments Summary Comments Numbness in R toes. Deep Tendon Reflex & Clonus Assessment Deep Tendon Reflex Left Patellar Deep Tendon Reflex 0 Absent Right Patellar Deep Tendon Reflex 1+ Diminished PT-OP-J Posture/Palpation/Skin Start: 06/12/22 08:12 Freq: Status: Active Protocol: Document 06/12/22 10:36 LRN (Rec: 06/12/22 11:35 LRN [id number]) Posture Evaluation Position Standing L-Spine Posture Flattened Pelvis Posture Anteriorly Tilted Weight Distribution Weight Shifted Right Hip Posture (L) Flexed,(R) Flexed Knee Posture (L) Genu Varus,(R) Genu Varus Comments Posture Comments Stands 15 degs hip flexion, R shoulder is low, protruding abdomen. Palpation Assessment Location Leg length Palpation Location Medial malleolus: Supine - R leg short, Long sit-Equal leg lengths Palpation Details R posteriorly rotated innominate. PT-OP-K Range of Motion Start: 06/12/22 08:12 Freq: Status: Active Protocol: Document 06/12/22 10:36 LRN (Rec: 06/12/22 11:35 LRN [id number]) Lumbar Spine Range of Motion Lumbar Spine Active Degrees Testing Position Standing Flexion 50 Extension 8 Rotation Left 2 Rotation Right 0 Lateral Flexion Left 7 Lateral Flexion Right 2 ROM Limitations Soft Tissue Tightness,Pain Comments R buttock pain with trunk flexion only. Hip Goniometric Range of Motion Hip Right Passive Testing Position Supine Straight Leg Raise 70 Internal Rotation 0 External Rotation 45 Left Passive Testing Position Supine Straight Leg Raise 70 Internal Rotation 0 External Rotation 45 PT-OP-L Special Tests Start: 06/12/22 08:12 Freq: Status: Active Protocol: Document 06/12/22 10:36 LRN (Rec: 06/12/22 11:35 LRN [id number]) Special Tests Lumbar Spine Special Tests Straight Leg Raise Test Results - Vertical Spine Loading Test Results - Hip Special Tests Posterior Labral Test Test Results - Anterior Labral Test Test Results - Scour Test Test Results - Stinchfield Resisted Hip Flexion Test Results - right Comments Pain anterior hip YONG Test Results + right Comments Pain posterior hip Log Roll Test Test Results - Comments Tight IR PT-OP-M Strength Start: 06/12/22 08:12 Freq: Status: Active Protocol: Document 06/17/22 15:15 LRN (Rec: 06/17/22 16:06 LRN [id number]) Hip Strength Hip Manual Muscle Testing Right Flexion (L2) 3+ Fair+ Extension (S1) 2 Poor Abduction 5 Normal Adduction 1 Trace Left Flexion (L2) 5 Normal Extension (S1) 5 Normal Abduction 5 Normal Adduction 1 Trace PT-OP-Q Treatments Start: 06/12/22 08:12 Freq: Status: Active Protocol: Document 06/24/22 10:36 LRN (Rec: 06/24/22 11:17 LRN [id number]) Therapeutic Exercises Supine Exercises TA tightening Supine Exercise Name TA tight Sidelying Exercises Clamshell Sidelying Exercise Name Clamshell/TA Side bilateral Reps/Minutes 15x 3 TA tightening Sidelying Exercise Name TA tightening Side bilateral Standing Exercises Postural training Standing Exercise Name Standing against wall for posture training Reps/Minutes 2' Self-Care/Home Management Treatment Education Patient Education Body Mechanics,Posture Other Education Pt education and training in proper body mechanics for transfer and ADLs, and proper sitting and standing posture, and olivia to safe movement. Activities Self-Care/Home Management Activities Issued & reviewed HEP: Supine hip AB/AD and leg lift; Sidelie Clamshell, Standing hip flex, AB, Ext. (hold on standing flex, AB, ext). PT-OP-T Assessment and Plan Start: 06/12/22 08:12 Freq: Status: Active Protocol: Document 06/24/22 10:36 LRN (Rec: 06/24/22 11:17 LRN [id number]) Physical Therapy Assessment Goals Three Impairment Numbness and pain of the RLE and toes Impairment Pain in RLE and toes is 2/10. R Toes have a numb feeling. Short Term Goal (STG) Pt will be independent with a hip stretch HEP to improve hip IR and trunk flexion mobility . STG Duration 07/26/22 Senior Staff Psychologist Goal (LTG) Improve sensation in is R toes and eliminate pain to improve his gait mechanics, reducing his trunk sway. LTG Duration 09/10/22 Two Impairment Pain walking is 2/10. Short Term Goal (STG) Pt is able get rid of his R hip pain to be able to walk to mailbox (100 steps) and back without increasing his pain. STG Duration 07/26/22 Senior Staff Psychologist Goal (LTG) Pt will be able to ambulate back up a slight incline from his mailbox with less SOB. LTG Duration 09/10/22 One Impairment Lacks appropriate self care HEP. Short Term Goal (STG) Pt will be educated in proper body mechanics for transfer and ADLs, and proper sitting and standing posture. STG Duration 07/26/22 (06/24/22: MET GOAL ) Senior Staff Psychologist Goal (LTG) Pt will be independent and consistent with a self care HEP to manage his R sciatic pain and numbness of the toes. 06/17/22: I/S HEP: Sitting Piriformis stretch and supine SKTC stretch. 06/24/22: HEP: R hip AB, Evans SLR & Clamshell) LTG Duration 09/10/22 progressed 06/24/22 Progress Towards Goals Progress Comments Progressed self care and HEP. Assessment Summary Assessment Pt had a little less pain in back after massage on the last visit; therefore further STM would be appropriate. + response to education in proper back care (body mechanics-ADLS, transfers). Physical Therapy Plan Frequency and Duration Frequency of Treatment 2x/Week Plan of Care Start Date 06/12/22 Plan of Care End Date 07/26/22 Next Visit Focus/Plan Next Note Type Treatment Note Next Visit Plan Rehab for R sciatic pain and L4-L5 radicular neural changes . Assess hip (rotation) strength . Pt education: pain management . JMT to correct posteriorly rotate R innominate and sacral dysfunction. Manual therapy: STM L/S paraspinals and Hip rotators. Ther Ex/HEP: hip stretch HEP to improve hip IR and trunk flexion mobility (STG #3)
--- NOTE | 2022-06-26 09:04 | PT.OTN ---
Current Diagnoses Nerve root and plexus disorder, unspecified (06/26/22) Spondylosis without myelopathy or radiculopathy, lumbosacral region (06/26/22) Sciatica, right side (06/26/22) Anesthesia of skin (06/26/22) Physical Therapy Treatment Note PT-OP-A Visit Information Start: 06/12/22 08:12 Freq: Status: Active Protocol: Document 06/26/22 08:19 LRN (Rec: 06/26/22 09:03 LRN [id number]) Out-Patient Physical Therapy Visit Information Visit Information Visit Type Treatment Note Visit Start Time 08:19 Visit Stop Time 08:59 Total Visit Minutes 40 Visit Number 4 Evaluation Information Evaluation Date 06/12/22 Precautions Precautions Currently being treated for kidney/liver dysfunction, Titanium plate in neck 5 yrs ago due to arthritis from neck injury in 1965. PT-OP-B Current Condition Start: 06/12/22 08:12 Freq: Status: Active Protocol: Document 06/12/22 10:36 LRN (Rec: 06/12/22 11:35 LRN [id number]) Current Condition History of Current Condition Onset Date Off/on forever, really bad last year Current Complaints Pain in R hip, lateral LE & foot & top/bottom of all 5 toes. History of Current Condition Pt reports chronic R Sciatic pain that has worsened in the past year. He has had 2 shots in the back (by Dr Manzo) and each time pain was relieved in the R hip. First shot were given 6 months ago and 3 weeks later had 2nd shot . Pt is scheduled to see Dr Manzo for follow up visit ( Arya, Sports and Public Safety Telecommunicator) in 4 days (Thursday) . A couple weeks ago his R toes started to go numb. Pt denies numbness of feet previously. States his pain is light in the hip and leg, but more pain in the foot and toes. Pt sometimes described his toe pain as numbness, and at other times described it as pain. Prior Treatments and Tests X-rays 02/25/22: Lumbar spine degenerative changes are seen, which are worst by plain film at L3-L4 and L4-L5. Hip X-ray 02/25/22: Moderate right hip osteoarthritis. MRI spine 02/19/22: Multilevel foraminal narrowing most severe at L5-S1 predominantly secondary to facet arthropathy. Future Testing and Treatments Planned Seeing Dr Manzo for follow up (Arya, Sports and Public Safety Telecommunicator) in 4 days (Thursday) . 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 Treatment Goals Patient/Caregiver Goals Pt goals with therapy is to be able get rid of his R hip pain to be able to walk to mailbox (100 steps) and back up a sligh incline, (feels he can do stairs okay). States he is SOB on return from mailbox. Personal Factors Other Personal Factors That May Effect Titanium plate in neck 5 yrs Therapy/Recovery ago due to arthritis from neck injury in 1965. Currently being treated for kidney/liver dysfunction. PT-OP-C Subjective Start: 06/12/22 08:12 Freq: Status: Active Protocol: Document 06/26/22 08:19 LRN (Rec: 06/26/22 09:03 LRN [id number]) OP-PT Subjective Patient Comments Patient Comments Getting an injection on . Did leg lifts and clamshell this morning - 15 reps. Pain R hip and back is just a little bit. Pain is 1/ 10. PT-OP-G Mobility & Gait Start: 06/12/22 08:12 Freq: Status: Active Protocol: Document 06/12/22 10:36 LRN (Rec: 06/12/22 11:35 LRN [id number]) OP Mobility Evaluation Bed Mobility Supine to and from Sit Independent without pain. Transfers Sit to Stand Very little pain with transfer OP Gait Assessment Gait Gait Assistance Required: Independent Assistive Devices Assistive Device None Gait Deviations General Gait Pattern Decreased Stride Length, Decreased Feet Clearance, Flexed Trunk,Lateral Trunk Lean Factors Limiting Gait Function Factors Limiting Gait Function Decreased Sensation,Pain Comments Gait Comments Short steps, poor toe off, lateral trunk sway. PT-OP-H Neuro Start: 06/12/22 08:12 Freq: Status: Active Protocol: Document 06/12/22 10:36 LRN (Rec: 06/12/22 11:35 LRN [id number]) Sensation Evaluation Gross Sensation Gross Sensation Right LE Impaired Sensation Description Numbness Comments Summary Comments Numbness in R toes. Deep Tendon Reflex & Clonus Assessment Deep Tendon Reflex Left Patellar Deep Tendon Reflex 0 Absent Right Patellar Deep Tendon Reflex 1+ Diminished PT-OP-J Posture/Palpation/Skin Start: 06/12/22 08:12 Freq: Status: Active Protocol: Document 06/12/22 10:36 LRN (Rec: 06/12/22 11:35 LRN [id number]) Posture Evaluation Position Standing L-Spine Posture Flattened Pelvis Posture Anteriorly Tilted Weight Distribution Weight Shifted Right Hip Posture (L) Flexed,(R) Flexed Knee Posture (L) Genu Varus,(R) Genu Varus Comments Posture Comments Stands 15 degs hip flexion, R shoulder is low, protruding abdomen. Palpation Assessment Location Leg length Palpation Location Medial malleolus: Supine - R leg short, Long sit-Equal leg lengths Palpation Details R posteriorly rotated innominate. PT-OP-K Range of Motion Start: 06/12/22 08:12 Freq: Status: Active Protocol: Document 06/12/22 10:36 LRN (Rec: 06/12/22 11:35 LRN [id number]) Lumbar Spine Range of Motion Lumbar Spine Active Degrees Testing Position Standing Flexion 50 Extension 8 Rotation Left 2 Rotation Right 0 Lateral Flexion Left 7 Lateral Flexion Right 2 ROM Limitations Soft Tissue Tightness,Pain Comments R buttock pain with trunk flexion only. Hip Goniometric Range of Motion Hip Right Passive Testing Position Supine Straight Leg Raise 70 Internal Rotation 0 External Rotation 45 Left Passive Testing Position Supine Straight Leg Raise 70 Internal Rotation 0 External Rotation 45 PT-OP-L Special Tests Start: 06/12/22 08:12 Freq: Status: Active Protocol: Document 06/12/22 10:36 LRN (Rec: 06/12/22 11:35 LRN [id number]) Special Tests Lumbar Spine Special Tests Straight Leg Raise Test Results - Vertical Spine Loading Test Results - Hip Special Tests Posterior Labral Test Test Results - Anterior Labral Test Test Results - Scour Test Test Results - Stinchfield Resisted Hip Flexion Test Results - right Comments Pain anterior hip YONG Test Results + right Comments Pain posterior hip Log Roll Test Test Results - Comments Tight IR PT-OP-M Strength Start: 06/12/22 08:12 Freq: Status: Active Protocol: Document 06/17/22 15:15 LRN (Rec: 06/17/22 16:06 LRN [id number]) Hip Strength Hip Manual Muscle Testing Right Flexion (L2) 3+ Fair+ Extension (S1) 2 Poor Abduction 5 Normal Adduction 1 Trace Left Flexion (L2) 5 Normal Extension (S1) 5 Normal Abduction 5 Normal Adduction 1 Trace PT-OP-Q Treatments Start: 06/12/22 08:12 Freq: Status: Active Protocol: Document 06/26/22 08:19 LRN (Rec: 06/26/22 09:03 LRN [id number]) Cardio Equipment Recumbent Stepper (Sci-Fit) Duration (Minutes) 8 Resistance 1 Seat Position 12 Therapeutic Exercises Supine Exercises Ilipsoas stretch Supine Exercise Name Iliopsoas stretch Side bilateral Reps/Minutes 60 SH each Comments Extra time needed to determine max tolerated stretch. Active Hip AB Supine Exercise Name R Active Hip AB Side right Reps/Minutes 15x Fig 4 stretch Supine Exercise Name Fig 4 stretch Side bilateral Reps/Minutes 60 SH each Comments Extra time needed to determine max tolerated stretch. Lateral Hip stretch Supine Exercise Name Lateral Hip Stretch Side right Reps/Minutes 60 SH x 2 Comments Extra time needed to determine max tolerated stretch. Piriformis stretch Supine Exercise Name Assisted Piriformis stretch Side right Reps/Minutes 60 SH x 2 SKTC stretch Supine Exercise Name R>L Warm up heels slides before doing SKTC Side bilateral Reps/Minutes 7' Comments Extra time needed to get KTC stretch Sitting Exercises Piriformis stretch Sitting Exercise Name Side sitting for Piriformis stretch Side right Reps/Minutes 6' Comments Extra time to review R sided stretch Self-Care/Home Management Treatment Education Patient Education Home Exercise Program Activities Self-Care/Home Management Activities Issued & reviewed HEP: Hip stretches: Piriformis, Lateral Hip, Fig 4 & Iliopsoas stretch. PT-OP-T Assessment and Plan Start: 06/12/22 08:12 Freq: Status: Active Protocol: Document 06/26/22 08:19 LRN (Rec: 06/26/22 09:03 LRN [id number]) Physical Therapy Assessment Goals Three Impairment Numbness and pain of the RLE and toes Impairment Pain in RLE and toes is 2/10. R Toes have a numb feeling. Short Term Goal (STG) Pt will be independent with a hip stretch HEP to improve hip IR and trunk flexion mobility . STG Duration 07/26/22 Printing Machine Operator Tape Rules Goal (LTG) Improve sensation in is R toes and eliminate pain to improve his gait mechanics, reducing his trunk sway. LTG Duration 09/10/22 Two Impairment Pain walking is 2/10. Short Term Goal (STG) Pt is able get rid of his R hip pain to be able to walk to mailbox (100 steps) and back without increasing his pain. STG Duration 07/26/22 Half-Way Goal (LTG) Pt will be able to ambulate back up a slight incline from his mailbox with less SOB. LTG Duration 09/10/22 One Impairment Lacks appropriate self care HEP. Short Term Goal (STG) Pt will be educated in proper body mechanics for transfer and ADLs, and proper sitting and standing posture. STG Duration 07/26/22 (06/24/22: MET GOAL ) Printing Machine Operator Tape Rules Goal (LTG) Pt will be independent and consistent with a self care HEP to manage his R sciatic pain and numbness of the toes. 06/17/22: I/S HEP: Sitting Piriformis stretch and supine SKTC stretch. 06/24/22: HEP: R hip AB, Evans SLR & Clamshell). 06/26/22: HEP: Hip stretches: Piriformis, Lateral Hip, Fig 4 & Iliopsoas stretch. LTG Duration 09/10/22 progressed 06/26/22 Progress Towards Goals Progress Comments Progressed HEP. Assessment Summary Assessment Rehab for R sciatic pain. R hip pain increased only when lying on it with transfer. Pt able to stretch previously taught exs by self. Good tolerance to new stretches with no change in pain post therapy. Physical Therapy Plan Frequency and Duration Frequency of Treatment 2x/Week Plan of Care Start Date 06/12/22 Plan of Care End Date 07/26/22 Next Visit Focus/Plan Next Note Type Treatment Note Next Visit Plan Pt to have injection 07/03/22; therefore pt will return first week of [place] if needed for further therapy. Rehab for R sciatic pain and L4-L5 radicular neural changes. Assess hip (rotation) strength . Pt education: pain management . JMT to correct posteriorly rotate R innominate and sacral dysfunction. Manual therapy: STM L/S paraspinals and Hip rotators. Ther Ex/HEP: trunk flexion mobility (STG #3)
--- NOTE | 2022-07-14 11:19 | PT.OTN ---
Current Diagnoses Nerve root and plexus disorder, unspecified (07/14/22) Spondylosis without myelopathy or radiculopathy, lumbosacral region (07/14/22) Sciatica, right side (07/14/22) Anesthesia of skin (07/14/22) Physical Therapy Treatment Note PT-OP-A Visit Information Start: 06/12/22 08:12 Freq: Status: Active Protocol: Document 07/14/22 10:34 SP (Rec: 07/14/22 11:30 SP [id number]) Out-Patient Physical Therapy Visit Information Visit Information Visit Type Treatment Note Visit Note PN due 2 visits Visit Start Time 10:34 Visit Stop Time 11:19 Total Visit Minutes 45 Visit Number 5 Number of DEALER DEVELOPMENT MANAGER Visits 1 Evaluation Information Evaluation Date 06/12/22 Precautions Precautions Currently being treated for kidney/liver dysfunction, Titanium plate in neck 5 yrs ago due to arthritis from neck injury in 1965. PT-OP-B Current Condition Start: 06/12/22 08:12 Freq: Status: Active Protocol: Document 06/12/22 10:36 LRN (Rec: 06/12/22 11:35 LRN [id number]) Current Condition History of Current Condition Onset Date Off/on forever, really bad last year Current Complaints Pain in R hip, lateral LE & foot & top/bottom of all 5 toes. History of Current Condition Pt reports chronic R Sciatic pain that has worsened in the past year. He has had 2 shots in the back (by Dr Manzo) and each time pain was relieved in the R hip. First shot were given 6 months ago and 3 weeks later had 2nd shot . Pt is scheduled to see Dr Manzo for follow up visit ( Arya, Sports and Legal Arbitrator) in 4 days (Thursday) . A couple weeks ago his R toes started to go numb. Pt denies numbness of feet previously. States his pain is light in the hip and leg, but more pain in the foot and toes. Pt sometimes described his toe pain as numbness, and at other times described it as pain. Prior Treatments and Tests X-rays 02/25/22: Lumbar spine degenerative changes are seen, which are worst by plain film at L3-L4 and L4-L5. Hip X-ray 02/25/22: Moderate right hip osteoarthritis. MRI spine 02/19/22: Multilevel foraminal narrowing most severe at L5-S1 predominantly secondary to facet arthropathy. Future Testing and Treatments Planned Seeing Dr Manzo for follow up (Arya, Sports and Legal Arbitrator) in 4 days (Thursday) . 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 Treatment Goals Patient/Caregiver Goals Pt goals with therapy is to be able get rid of his R hip pain to be able to walk to mailbox (100 steps) and back up a sligh incline, (feels he can do stairs okay). States he is SOB on return from mailbox. Personal Factors Other Personal Factors That May Effect Titanium plate in neck 5 yrs Therapy/Recovery ago due to arthritis from neck injury in 1965. Currently being treated for kidney/liver dysfunction. PT-OP-C Subjective Start: 06/12/22 08:12 Freq: Status: Active Protocol: Document 07/14/22 10:34 SP (Rec: 07/14/22 11:30 SP [id number]) OP-PT Subjective Patient Comments Patient Comments Pt stated still adjusting from the injection 2 weeks ago in his back, states his 3rd in the past year. He stated his back pain is about 1/10 but still numbness in all his toes on R foot like they are all one. Patient Reported Progress Improving PT-OP-G Mobility & Gait Start: 06/12/22 08:12 Freq: Status: Active Protocol: Document 06/12/22 10:36 LRN (Rec: 06/12/22 11:35 LRN [id number]) OP Mobility Evaluation Bed Mobility Supine to and from Sit Independent without pain. Transfers Sit to Stand Very little pain with transfer OP Gait Assessment Gait Gait Assistance Required: Independent Assistive Devices Assistive Device None Gait Deviations General Gait Pattern Decreased Stride Length, Decreased Feet Clearance, Flexed Trunk,Lateral Trunk Lean Factors Limiting Gait Function Factors Limiting Gait Function Decreased Sensation,Pain Comments Gait Comments Short steps, poor toe off, lateral trunk sway. PT-OP-H Neuro Start: 06/12/22 08:12 Freq: Status: Active Protocol: Document 06/12/22 10:36 LRN (Rec: 06/12/22 11:35 LRN [id number]) Sensation Evaluation Gross Sensation Gross Sensation Right LE Impaired Sensation Description Numbness Comments Summary Comments Numbness in R toes. Deep Tendon Reflex & Clonus Assessment Deep Tendon Reflex Left Patellar Deep Tendon Reflex 0 Absent Right Patellar Deep Tendon Reflex 1+ Diminished PT-OP-J Posture/Palpation/Skin Start: 06/12/22 08:12 Freq: Status: Active Protocol: Document 06/12/22 10:36 LRN (Rec: 06/12/22 11:35 LRN [id number]) Posture Evaluation Position Standing L-Spine Posture Flattened Pelvis Posture Anteriorly Tilted Weight Distribution Weight Shifted Right Hip Posture (L) Flexed,(R) Flexed Knee Posture (L) Genu Varus,(R) Genu Varus Comments Posture Comments Stands 15 degs hip flexion, R shoulder is low, protruding abdomen. Palpation Assessment Location Leg length Palpation Location Medial malleolus: Supine - R leg short, Long sit-Equal leg lengths Palpation Details R posteriorly rotated innominate. PT-OP-K Range of Motion Start: 06/12/22 08:12 Freq: Status: Active Protocol: Document 06/12/22 10:36 LRN (Rec: 06/12/22 11:35 LRN [id number]) Lumbar Spine Range of Motion Lumbar Spine Active Degrees Testing Position Standing Flexion 50 Extension 8 Rotation Left 2 Rotation Right 0 Lateral Flexion Left 7 Lateral Flexion Right 2 ROM Limitations Soft Tissue Tightness,Pain Comments R buttock pain with trunk flexion only. Hip Goniometric Range of Motion Hip Right Passive Testing Position Supine Straight Leg Raise 70 Internal Rotation 0 External Rotation 45 Left Passive Testing Position Supine Straight Leg Raise 70 Internal Rotation 0 External Rotation 45 PT-OP-L Special Tests Start: 06/12/22 08:12 Freq: Status: Active Protocol: Document 06/12/22 10:36 LRN (Rec: 06/12/22 11:35 LRN [id number]) Special Tests Lumbar Spine Special Tests Straight Leg Raise Test Results - Vertical Spine Loading Test Results - Hip Special Tests Posterior Labral Test Test Results - Anterior Labral Test Test Results - Scour Test Test Results - Stinchfield Resisted Hip Flexion Test Results - right Comments Pain anterior hip YONG Test Results + right Comments Pain posterior hip Log Roll Test Test Results - Comments Tight IR PT-OP-M Strength Start: 06/12/22 08:12 Freq: Status: Active Protocol: Document 06/17/22 15:15 LRN (Rec: 06/17/22 16:06 LRN [id number]) Hip Strength Hip Manual Muscle Testing Right Flexion (L2) 3+ Fair+ Extension (S1) 2 Poor Abduction 5 Normal Adduction 1 Trace Left Flexion (L2) 5 Normal Extension (S1) 5 Normal Abduction 5 Normal Adduction 1 Trace PT-OP-Q Treatments Start: 06/12/22 08:12 Freq: Status: Active Protocol: Document 07/14/22 10:34 SP (Rec: 07/14/22 11:30 SP [id number]) Cardio Equipment Recumbent Stepper (Sci-Fit) Duration (Minutes) 5 Resistance 2 (good response increase) Seat Position 10 (12 seat next tx) Other UEs/ LEs, L knee became bothersome Therapeutic Exercises Supine Exercises Active Hip AB Supine Exercise Name R Active Hip AB Side right Reps/Minutes 15x Comments re-ed/ cues for TA, neutral pelvis then abd-cued Fig 4 stretch Supine Exercise Name Fig 4 stretch- hip ER stretch Side bilateral Reps/Minutes 60 SH each Comments good response Lateral Hip stretch Supine Exercise Name Lateral Hip Stretch- challenging Side right Equipment Used towel behind thigh self support Reps/Minutes 60 SH x 2 Comments challenging self as HEP, modified LLE bent Rfoot on L knee, good stretch Piriformis stretch Supine Exercise Name Assisted Piriformis stretch Side right Equipment Used towel behind thigh for support hip IR opp L shld Reps/Minutes 60 SH x 2 Comments modified with R leg on bent L knee TA tightening Supine Exercise Name TA tight SKTC stretch Supine Exercise Name R>L Warm up heels slides before doing SKTC Side bilateral Equipment Used towel grasp hold behind thigh Reps/Minutes 60 x2 Comments Extra time needed to get KTC stretch Standing Exercises self STMs Standing Exercise Name Glut, ER: ball on wall Side right Reps/Minutes 1 min Comments good feedback response, less tension feels good Manual Therapy Treatment Soft Tissue Mobilization R Upper Gluteals Body Location R Upper Gluteals and R sacral border Mobilization Type Strumming Intensity/Depth Moderate Body Position Prone Low Back Body Location R QL & L/S Paraspinals. Mobilization Type Strumming Intensity/Depth Moderate Body Position Prone Comments instruction self ball wall Self-Care/Home Management Treatment Education Patient Education Body Mechanics,Home Exercise Program,Joint Protection,Pain Management Other Education -Extra time spent side/supine sleeping jt support w/ use pillows: between BLEs, front between BUEs, behind back if wish assist stationary on side . -added self STMs: tennis ball on wall. PT-OP-T Assessment and Plan Start: 06/12/22 08:12 Freq: Status: Active Protocol: Document 07/14/22 10:34 SP (Rec: 07/14/22 11:30 SP [id number]) Physical Therapy Assessment Goals Three Impairment Numbness and pain of the RLE and toes Impairment Pain in RLE and toes is 2/10. R Toes have a numb feeling. Short Term Goal (STG) Pt will be independent with a hip stretch HEP to improve hip IR and trunk flexion mobility . 07/14/22: Pt requires max cues , towel support, HOs for self recall. To challenged lateral hip stretch piriformis for home, in PT only. STG Duration 07/26/22 progressin07/14/22 Skilled Nursing Goal (LTG) Improve sensation in is R toes and eliminate pain to improve his gait mechanics, reducing his trunk sway. LTG Duration 09/10/22 Two Impairment Pain walking is 2/10. Short Term Goal (STG) Pt is able get rid of his R hip pain to be able to walk to mailbox (100 steps) and back without increasing his pain. 07/14/22: pt reports 1/10 pain upon arrival but all RLE toes numb and feel like one toe. STG Duration 07/26/22 progressing 07/14/22 Cold Roll Packer Sheet Iron Goal (LTG) Pt will be able to ambulate back up a slight incline from his mailbox with less SOB. LTG Duration 09/10/22 One Impairment Lacks appropriate self care HEP. Short Term Goal (STG) Pt will be educated in proper body mechanics for transfer and ADLs, and proper sitting and standing posture. STG Duration 07/26/22 (06/24/22: MET GOAL ) Skilled Nursing Goal (LTG) Pt will be independent and consistent with a self care HEP to manage his R sciatic pain and numbness of the toes. 06/17/22: I/S HEP: Sitting Piriformis stretch and supine SKTC stretch. 06/24/22: HEP: R hip AB, Evans SLR & Clamshell). 06/26/22: HEP: Hip stretches: Piriformis, Lateral Hip, Fig 4 & Iliopsoas stretch. LTG Duration 09/10/22 progressed 06/26/22 Assessment Summary Assessment Pt responded well to manual then added self STMs. Max cues required for HEP set up and needed HOs for recall support, good response to stretches with use of towel. DEALER DEVELOPMENT MANAGER provided DEALER DEVELOPMENT MANAGER/PT contact info/ bio to show daughter visiting and asked send pics/email added ex pt states doing with him at home for coordination of care. Physical Therapy Plan Frequency and Duration Frequency of Treatment 2x/Week Plan of Care Start Date 06/12/22 Plan of Care End Date 07/26/22 Therapeutic Interventions Therapeutic Interventions Gait Training,Home Exercise Program,Joint Mobilizations, Manual Therapy,Neuromuscular Re-education,Patient/Caregiver Education,Self-Care/Home Management,Soft Tissue Mobilization,Therapeutic Activities,Therapeutic Exercises Modalities Cold Pack/Ice Massage,Electric Stimulation,Hot Packs, Ultrasound Next Visit Focus/Plan Next Note Type Treatment Note Next Visit Plan Next tx: review standing HEP, check daughter's ex added at home suggestions. POC: Rehab for R sciatic pain and L4-L5 radicular neural changes. Assess hip (rotation) strength . Pt education: pain management . JMT to correct posteriorly rotate R innominate and sacral dysfunction. Manual therapy: STM L/S paraspinals and Hip rotators. Ther Ex/HEP: trunk flexion mobility (STG #3)
--- NOTE | 2022-07-22 09:45 | PT.OTN ---
Current Diagnoses Nerve root and plexus disorder, unspecified (07/22/22) Spondylosis without myelopathy or radiculopathy, lumbosacral region (07/22/22) Sciatica, right side (07/22/22) Anesthesia of skin (07/22/22) Physical Therapy Treatment Note PT-OP-A Visit Information Start: 06/12/22 08:12 Freq: Status: Active Protocol: Document 07/22/22 09:08 SP (Rec: 07/22/22 09:50 SP [id number]) Out-Patient Physical Therapy Visit Information Visit Information Visit Type Treatment Note Visit Note PN due next visit Visit Start Time 09:06 Visit Stop Time 09:45 Total Visit Minutes 39 Visit Number 6 Number of RADIUS CORNER MACHINE OPERATOR 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 PT-OP-B Current Condition Start: 06/12/22 08:12 Freq: Status: Active Protocol: Document 06/12/22 10:36 LRN (Rec: 06/12/22 11:35 LRN [id number]) Current Condition History of Current Condition Onset Date Off/on forever, really bad last year Current Complaints Pain in R hip, lateral LE & foot & top/bottom of all 5 toes. History of Current Condition Pt reports chronic R Sciatic pain that has worsened in the past year. He has had 2 shots in the back (by Dr Manzo) and each time pain was relieved in the R hip. First shot were given 6 months ago and 3 weeks later had 2nd shot . Pt is scheduled to see Dr Manzo for follow up visit ( [employer]ry[employer], [employer]) in 4 days (Thursday) . A couple weeks ago his R toes started to go numb. Pt denies numbness of feet previously. States his pain is light in the hip and leg, but more pain in the foot and toes. Pt sometimes described his toe pain as numbness, and at other times described it as pain. Prior Treatments and Tests X-rays 02/25/22: Lumbar spine degenerative changes are seen, which are worst by plain film at L3-L4 and L4-L5. Hip X-ray 02/25/22: Moderate right hip osteoarthritis. MRI spine 02/19/22: Multilevel foraminal narrowing most severe at L5-S1 predominantly secondary to facet arthropathy. Future Testing and Treatments Planned Seeing Dr Manzo for follow up ([employer]ry[employer], [employer]) in 4 days (Thursday) . 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 Treatment Goals Patient/Caregiver Goals Pt goals with therapy is to be able get rid of his R hip pain to be able to walk to mailbox (100 steps) and back up a sligh incline, (feels he can do stairs okay). States he is SOB on return from mailbox. Personal Factors Other Personal Factors That May Effect Titanium plate in neck 5 yrs Therapy/Recovery ago due to arthritis from neck injury in 1965. Currently being treated for kidney/liver dysfunction. PT-OP-C Subjective Start: 06/12/22 08:12 Freq: Status: Active Protocol: Document 07/22/22 09:08 SP (Rec: 07/22/22 09:50 SP [id number]) OP-PT Subjective Patient Comments Patient Comments Pt stated daughter is having him do some calf stretches at the wall and other things and helps too. Pt didn't remember to bring anything in nor RADIUS CORNER MACHINE OPERATOR receive email from daughter what having pt do at home for coordination of care. Daughter is here to visit for 2 more months. PT-OP-G Mobility & Gait Start: 06/12/22 08:12 Freq: Status: Active Protocol: Document 06/12/22 10:36 LRN (Rec: 06/12/22 11:35 LRN [id number]) OP Mobility Evaluation Bed Mobility Supine to and from Sit Independent without pain. Transfers Sit to Stand Very little pain with transfer OP Gait Assessment Gait Gait Assistance Required: Independent Assistive Devices Assistive Device None Gait Deviations General Gait Pattern Decreased Stride Length, Decreased Feet Clearance, Flexed Trunk,Lateral Trunk Lean Factors Limiting Gait Function Factors Limiting Gait Function Decreased Sensation,Pain Comments Gait Comments Short steps, poor toe off, lateral trunk sway. PT-OP-H Neuro Start: 06/12/22 08:12 Freq: Status: Active Protocol: Document 06/12/22 10:36 LRN (Rec: 06/12/22 11:35 LRN [id number]) Sensation Evaluation Gross Sensation Gross Sensation Right LE Impaired Sensation Description Numbness Comments Summary Comments Numbness in R toes. Deep Tendon Reflex & Clonus Assessment Deep Tendon Reflex Left Patellar Deep Tendon Reflex 0 Absent Right Patellar Deep Tendon Reflex 1+ Diminished PT-OP-J Posture/Palpation/Skin Start: 06/12/22 08:12 Freq: Status: Active Protocol: Document 06/12/22 10:36 LRN (Rec: 06/12/22 11:35 LRN [id number]) Posture Evaluation Position Standing L-Spine Posture Flattened Pelvis Posture Anteriorly Tilted Weight Distribution Weight Shifted Right Hip Posture (L) Flexed,(R) Flexed Knee Posture (L) Genu Varus,(R) Genu Varus Comments Posture Comments Stands 15 degs hip flexion, R shoulder is low, protruding abdomen. Palpation Assessment Location Leg length Palpation Location Medial malleolus: Supine - R leg short, Long sit-Equal leg lengths Palpation Details R posteriorly rotated innominate. PT-OP-K Range of Motion Start: 06/12/22 08:12 Freq: Status: Active Protocol: Document 06/12/22 10:36 LRN (Rec: 06/12/22 11:35 LRN [id number]) Lumbar Spine Range of Motion Lumbar Spine Active Degrees Testing Position Standing Flexion 50 Extension 8 Rotation Left 2 Rotation Right 0 Lateral Flexion Left 7 Lateral Flexion Right 2 ROM Limitations Soft Tissue Tightness,Pain Comments R buttock pain with trunk flexion only. Hip Goniometric Range of Motion Hip Right Passive Testing Position Supine Straight Leg Raise 70 Internal Rotation 0 External Rotation 45 Left Passive Testing Position Supine Straight Leg Raise 70 Internal Rotation 0 External Rotation 45 PT-OP-L Special Tests Start: 06/12/22 08:12 Freq: Status: Active Protocol: Document 06/12/22 10:36 LRN (Rec: 06/12/22 11:35 LRN [id number]) Special Tests Lumbar Spine Special Tests Straight Leg Raise Test Results - Vertical Spine Loading Test Results - Hip Special Tests Posterior Labral Test Test Results - Anterior Labral Test Test Results - Scour Test Test Results - Stinchfield Resisted Hip Flexion Test Results - right Comments Pain anterior hip YONG Test Results + right Comments Pain posterior hip Log Roll Test Test Results - Comments Tight IR PT-OP-M Strength Start: 06/12/22 08:12 Freq: Status: Active Protocol: Document 06/17/22 15:15 LRN (Rec: 06/17/22 16:06 LRN [id number]) Hip Strength Hip Manual Muscle Testing Right Flexion (L2) 3+ Fair+ Extension (S1) 2 Poor Abduction 5 Normal Adduction 1 Trace Left Flexion (L2) 5 Normal Extension (S1) 5 Normal Abduction 5 Normal Adduction 1 Trace PT-OP-Q Treatments Start: 06/12/22 08:12 Freq: Status: Active Protocol: Document 07/22/22 09:08 SP (Rec: 07/22/22 09:50 SP [id number]) Cardio Equipment Recumbent Stepper (Sci-Fit) Duration (Minutes) 5 Resistance 3 Seat Position 10> 12 Other UEs/ LEs, L knee feels better seat 12 Therapeutic Exercises Supine Exercises SKTC stretch Supine Exercise Name R>L Warm up heels slides before doing SKTC Side bilateral Equipment Used towel grasp hold behind thigh Reps/Minutes 60 x2 Comments good feedback AROM & stretch Sidelying Exercises ABD Sidelying Exercise Name in PT, if continued good form add to HEP next tx Side bilateral Resistance AROM Reps/Minutes x20 Comments occasional cue stacked hips/ shld on side- good muscle work Sitting Exercises STS Sitting Exercise Name added to HEP Resistance AROM Comments cued hip hinge, no UE support more AROM mobility w/ reps Standing Exercises calf stretch Standing Exercise Name reviewed home daughter HEP: lunge stretch Equipment Used //bars and facing wall Reps/Minutes 20s Comments good feedback stretch, cued upright posture Daughter home HEP Standing Exercise Name standing: hip hinge arms dangle circles 2. shoudler posterior rolls Reps/Minutes x5 arms circles, shld rolls x10 Comments good feedback back stretch/ ROM iliopsoas stretch Standing Exercise Name reviewed home daughter HEP: lunge stretch Equipment Used //bars Reps/Minutes 20s Comments good feedback stretch, cued upright posture PT-OP-T Assessment and Plan Start: 06/12/22 08:12 Freq: Status: Active Protocol: Document 07/22/22 09:08 SP (Rec: 07/22/22 09:50 SP [id number]) Physical Therapy Assessment Goals Three Impairment Numbness and pain of the RLE and toes Impairment Pain in RLE and toes is 2/10. R Toes have a numb feeling. Short Term Goal (STG) Pt will be independent with a hip stretch HEP to improve hip IR and trunk flexion mobility . 07/14/22: Pt requires max cues , towel support, HOs for self recall. To challenged lateral hip stretch piriformis for home, in PT only. 07/22/22: home daughter HEP: LS flexion UE arm dangel circles, lunge calf/hip flex stretch. Reviewed self STM glut ball on wall. STG Duration 07/26/22 progressin07/22/22 Nursing Home Goal (LTG) Improve sensation in is R toes and eliminate pain to improve his gait mechanics, reducing his trunk sway. 07/22/22: no siginificant difference, R foot toes still numb, doesn't think injection helped. LTG Duration 09/10/22 no improvement Two Impairment Pain walking is 2/10. Short Term Goal (STG) Pt is able get rid of his R hip pain to be able to walk to mailbox (100 steps) and back without increasing his pain. 07/14/22: pt reports 1/10 pain upon arrival but all RLE toes numb and feel like one toe. 07/17/22: progressing: kids have been getting his mail, no pain walking around house or doing many stairs. States L hip 95% better. STG Duration 07/26/22 progressing 07/22/22 Jive Developer Goal (LTG) Pt will be able to ambulate back up a slight incline from his mailbox with less SOB. 07/22/22: hasn't done activity : kids have picked up mail. LTG Duration 09/10/22 updated 07/22/22 One Impairment Lacks appropriate self care HEP. Short Term Goal (STG) Pt will be educated in proper body mechanics for transfer and ADLs, and proper sitting and standing posture. STG Duration 07/26/22 (06/24/22: MET GOAL ) Jive Developer Goal (LTG) Pt will be independent and consistent with a self care HEP to manage his R sciatic pain and numbness of the toes. 06/17/22: I/S HEP: Sitting Piriformis stretch and supine SKTC stretch. 06/24/22: HEP: R hip AB, [employer]). 06/26/22: HEP: Hip stretches: Piriformis, Lateral Hip, Fig 4 & Iliopsoas stretch. 07/22/22: reviewed self STMs ball on wall over glut- good feedback massage. Review stretches daughter stand stretches. LTG Duration 09/10/22 progressed 07/22/22 Assessment Summary Assessment Pt is improving in flexibility with PT stretches and more standing ROM/ flexibility with daughter at home. Pt forgot to tell daughter to contact us for coordination, unsure will remember carryover. Reviewed HEP with daughter doing remembers for safety, good response, see added to ther ex today. Pt stated more flexible leaving tx. Physical Therapy Plan Frequency and Duration Frequency of Treatment 2x/Week Plan of Care Start Date 06/12/22 Plan of Care End Date 07/26/22 Therapeutic Interventions Therapeutic Interventions Gait Training,Home Exercise Program,Joint Mobilizations, Manual Therapy,Neuromuscular Re-education,Patient/Caregiver Education,Self-Care/Home Management,Soft Tissue Mobilization,Therapeutic Activities,Therapeutic Exercises Modalities Cold Pack/Ice Massage,Electric Stimulation,Hot Packs, Ultrasound Next Visit Focus/Plan Next Note Type Progress Note Next Visit Plan PN Next visit. Ask if daughter gave HOs we can see to review safety coordination at home. RADIUS CORNER MACHINE OPERATOR provided our contact info to communicate with us. RADIUS CORNER MACHINE OPERATOR didn't see any emails since last tx. POC: Rehab for R sciatic pain and L4-L5 radicular neural changes. Assess hip (rotation) strength . Pt education: pain management . JMT to correct posteriorly rotate R innominate and sacral dysfunction. Manual therapy: STM L/S paraspinals and Hip rotators. Ther Ex/HEP: trunk flexion mobility (STG #3)
--- NOTE | 2022-08-01 12:08 | PT.OTN ---
Current Diagnoses Nerve root and plexus disorder, unspecified (08/01/22) Spondylosis without myelopathy or radiculopathy, lumbosacral region (08/01/22) Sciatica, right side (08/01/22) Anesthesia of skin (08/01/22) Physical Therapy Treatment Note PT-OP-A Visit Information Start: 06/12/22 08:12 Freq: Status: Active Protocol: Document 08/01/22 09:10 LRN (Rec: 08/01/22 10:03 LRN [id number]) Out-Patient Physical Therapy Visit Information Visit Information Visit Type Progress Note Visit Start Time 09:10 Visit Stop Time 10:00 Total Visit Minutes 50 Visit Number 47 Evaluation Information Evaluation Date 06/12/22 Precautions Precautions Currently being treated for kidney/liver dysfunction, Titanium plate in neck 5 yrs ago due to arthritis from neck injury in 1965. PT-OP-B Current Condition Start: 06/12/22 08:12 Freq: Status: Active Protocol: Document 06/12/22 10:36 LRN (Rec: 06/12/22 11:35 LRN [id number]) Current Condition History of Current Condition Onset Date Off/on forever, really bad last year Current Complaints Pain in R hip, lateral LE & foot & top/bottom of all 5 toes. History of Current Condition Pt reports chronic R Sciatic pain that has worsened in the past year. He has had 2 shots in the back (by Dr Manzo) and each time pain was relieved in the R hip. First shot were given 6 months ago and 3 weeks later had 2nd shot . Pt is scheduled to see Dr Manzo for follow up visit ( [facility] [employer] [facility]) in 4 days (Thursday) . A couple weeks ago his R toes started to go numb. Pt denies numbness of feet previously. States his pain is light in the hip and leg, but more pain in the foot and toes. Pt sometimes described his toe pain as numbness, and at other times described it as pain. Prior Treatments and Tests X-rays 02/25/22: Lumbar spine degenerative changes are seen, which are worst by plain film at L3-L4 and L4-L5. Hip X-ray 02/25/22: Moderate right hip osteoarthritis. MRI spine 02/19/22: Multilevel foraminal narrowing most severe at L5-S1 predominantly secondary to facet arthropathy. Future Testing and Treatments Planned Seeing Dr Manzo for follow up ([facility] [employer] [facility] [employer] [facility]) in 4 days (Thursday) . 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 Treatment Goals Patient/Caregiver Goals Pt goals with therapy is to be able get rid of his R hip pain to be able to walk to mailbox (100 steps) and back up a sligh incline, (feels he can do stairs okay). States he is SOB on return from mailbox. Personal Factors Other Personal Factors That May Effect Titanium plate in neck 5 yrs Therapy/Recovery ago due to arthritis from neck injury in 1965. Currently being treated for kidney/liver dysfunction. PT-OP-C Subjective Start: 06/12/22 08:12 Freq: Status: Active Protocol: Document 08/01/22 09:10 LRN (Rec: 08/01/22 10:03 LRN [id number]) OP-PT Subjective Patient Comments Patient Comments Lower lumbar and low back and R leg seems worse. Worse for past 2 weeks. No pain while doing things, DA here another month, states his DA is a retired middle school teacher and she is having therapy herself on her knee and has done of the ex's her DA has been doing. Had 3rd injection in the LB and has not had a physicial f/u visit. Now all numbness gone in the L lateral leg, only numbness is in the toes. LBP rated 6/10, hip feels good. Patient Questionnaires Lower Extremity Functional Scale LEFS Score 56 LEFS Impairment 20 to 39% Impaired (Score 48- 62) Oswestry Low Back Index Oswestry Score 22 Oswestry Impairment 20 to 39% Impaired (Score 20- 39) OP-PT Pain Assessment Pain Assessment Grid Paper Pain Assessment Grid Completed Yes Location L toes Pain Location Details L toes Description Tingling Low Back Pain Location Details Low Back (L4 to S3) Intensity 5 Scale Used Numeric (0 - 10) Description Aching R LE Pain Location Details Only tingling in toes Intensity 0 Scale Used Numeric (0 - 10) Description Tingling PT-OP-G Mobility & Gait Start: 06/12/22 08:12 Freq: Status: Active Protocol: Document 06/12/22 10:36 LRN (Rec: 06/12/22 11:35 LRN [id number]) OP Mobility Evaluation Bed Mobility Supine to and from Sit Independent without pain. Transfers Sit to Stand Very little pain with transfer OP Gait Assessment Gait Gait Assistance Required: Independent Assistive Devices Assistive Device None Gait Deviations General Gait Pattern Decreased Stride Length, Decreased Feet Clearance, Flexed Trunk,Lateral Trunk Lean Factors Limiting Gait Function Factors Limiting Gait Function Decreased Sensation,Pain Comments Gait Comments Short steps, poor toe off, lateral trunk sway. PT-OP-H Neuro Start: 06/12/22 08:12 Freq: Status: Active Protocol: Document 06/12/22 10:36 LRN (Rec: 06/12/22 11:35 LRN [id number]) Sensation Evaluation Gross Sensation Gross Sensation Right LE Impaired Sensation Description Numbness Comments Summary Comments Numbness in R toes. Deep Tendon Reflex & Clonus Assessment Deep Tendon Reflex Left Patellar Deep Tendon Reflex 0 Absent Right Patellar Deep Tendon Reflex 1+ Diminished PT-OP-J Posture/Palpation/Skin Start: 06/12/22 08:12 Freq: Status: Active Protocol: Document 06/12/22 10:36 LRN (Rec: 06/12/22 11:35 LRN [id number]) Posture Evaluation Position Standing L-Spine Posture Flattened Pelvis Posture Anteriorly Tilted Weight Distribution Weight Shifted Right Hip Posture (L) Flexed,(R) Flexed Knee Posture (L) Genu Varus,(R) Genu Varus Comments Posture Comments Stands 15 degs hip flexion, R shoulder is low, protruding abdomen. Palpation Assessment Location Leg length Palpation Location Medial malleolus: Supine - R leg short, Long sit-Equal leg lengths Palpation Details R posteriorly rotated innominate. PT-OP-K Range of Motion Start: 06/12/22 08:12 Freq: Status: Active Protocol: Document 06/12/22 10:36 LRN (Rec: 06/12/22 11:35 LRN [id number]) Lumbar Spine Range of Motion Lumbar Spine Active Degrees Testing Position Standing Flexion 50 Extension 8 Rotation Left 2 Rotation Right 0 Lateral Flexion Left 7 Lateral Flexion Right 2 ROM Limitations Soft Tissue Tightness,Pain Comments R buttock pain with trunk flexion only. Hip Goniometric Range of Motion Hip Right Passive Testing Position Supine Straight Leg Raise 70 Internal Rotation 0 External Rotation 45 Left Passive Testing Position Supine Straight Leg Raise 70 Internal Rotation 0 External Rotation 45 PT-OP-L Special Tests Start: 06/12/22 08:12 Freq: Status: Active Protocol: Document 06/12/22 10:36 LRN (Rec: 06/12/22 11:35 LRN [id number]) Special Tests Lumbar Spine Special Tests Straight Leg Raise Test Results - Vertical Spine Loading Test Results - Hip Special Tests Posterior Labral Test Test Results - Anterior Labral Test Test Results - Scour Test Test Results - Stinchfield Resisted Hip Flexion Test Results - right Comments Pain anterior hip YONG Test Results + right Comments Pain posterior hip Log Roll Test Test Results - Comments Tight IR PT-OP-M Strength Start: 06/12/22 08:12 Freq: Status: Active Protocol: Document 06/17/22 15:15 LRN (Rec: 06/17/22 16:06 LRN [id number]) Hip Strength Hip Manual Muscle Testing Right Flexion (L2) 3+ Fair+ Extension (S1) 2 Poor Abduction 5 Normal Adduction 1 Trace Left Flexion (L2) 5 Normal Extension (S1) 5 Normal Abduction 5 Normal Adduction 1 Trace PT-OP-Q Treatments Start: 06/12/22 08:12 Freq: Status: Active Protocol: Document 08/01/22 09:10 LRN (Rec: 08/01/22 10:03 LRN [id number]) Cardio Equipment Recumbent Stepper (Sci-Fit) Duration (Minutes) 5 Resistance 3 Seat Position 12 Other UEs/ LEs, L knee feels better seat 12 Therapeutic Exercises Supine Exercises Clamshell Supine Exercise Name Clamshell Side right Reps/Minutes 15x Comments Extra time w/cuing to keep TA tight and pelvis stabilized. Ilipsoas stretch Supine Exercise Name Iliopsoas stretch Side bilateral Reps/Minutes 60 SH each Comments Extra time needed to determine max tolerated stretch. Active Hip AB Supine Exercise Name R Active Hip AB Side right Reps/Minutes 15x Comments re-ed/ cues for TA, neutral pelvis then abd-cued Fig 4 stretch Supine Exercise Name Fig 4 stretch - hip ER stretch Side bilateral Reps/Minutes 2x each Comments Extra time taken finding max tolerated position Lateral Hip stretch Supine Exercise Name Lateral Hip Stretch- challenging Side right Equipment Used towel behind thigh self support Reps/Minutes 60 SH x 2 Comments Cuing to not force stretch, modified LLE bent Rfoot on L knee, good stretch Piriformis stretch Supine Exercise Name Assisted Piriformis stretch Side right Equipment Used towel behind thigh for support hip IR opp L shld Reps/Minutes 60 SH x 2 Comments Cuing to not force stretch, modified with R leg on bent L knee TA tightening Supine Exercise Name TA tightening review Reps/Minutes 4' Self-Care/Home Management Treatment Education Other Education Education and much discussion on pt's symptom changes with increasing pain in the LB bilaterally and initiation of tingling in the R toes. Discussion of importance of core stability to minimize changes in the lumbar spine. Discussion of possible lumbar neural irritation with pt doing ex's started by DA. Activities Self-Care/Home Management Activities Discussed and review of goals and POC. Pt agreeable to continuation of therapy until vacation and re-evaluating need for therapy before leaving for vacation. Requested DA attend therapy with patient or pt stop ex's suggested by DA until they could be reviewed. PT-OP-T Assessment and Plan Start: 06/12/22 08:12 Freq: Status: Active Protocol: Document 08/01/22 09:10 LRN (Rec: 08/01/22 10:03 LRN [id number]) Physical Therapy Assessment Rehab Potential Rehabilitation Potential Good Evaluation Complexity Number of Personal Factors/Comorbidities 3 or More Number of Body Systems Impaired 4 or More Clinical Presentation at Evaluation Evolving Impairments Impairments Activity Tolerance,Gait,Pain, Posture,ROM,Soft Tissue Mobility,Strength Goals Three Impairment Numbness and pain of the RLE and toes Impairment Pain in RLE and toes is 2/10. R Toes have a numb feeling. Short Term Goal (STG) Pt will be independent with a hip stretch HEP to improve hip IR and trunk flexion mobility . 07/14/22: Pt requires max cues , towel support, HOs for self recall. To challenged lateral hip stretch piriformis for home, in PT only. 07/22/22: home daughter HEP: LS flexion UE arm dangel circles, lunge calf/hip flex stretch. Reviewed self STM glut ball on wall. 08/01/22: Pt has HEP, but stopped doing ex's due to extra time taken to deal with inclement weather and house issues. Pt needing review of ex's. STG Duration 07/26/22 08/01/22: MET, but needs review Clinical Psychiatrist Goal (LTG) Improve sensation in is R toes and eliminate pain to improve his gait mechanics, reducing his trunk sway. 07/22/22: no siginificant difference, R foot toes still numb, doesn't think injection helped. 08/01/22: No pain in R toes, only numbness. Now his evans hips hurt (prior level of function). LTG Duration 09/19/22 (08/01/22: MET GOAL after cortisone injection) Two Impairment Pain walking is 2/10. Short Term Goal (STG) Pt is able get rid of his R hip pain to be able to walk to mailbox (100 steps) and back without increasing his pain. 07/14/22: pt reports 1/10 pain upon arrival but all RLE toes numb and feel like one toe. 07/17/22: progressing: kids have been getting his mail, no pain walking around house or doing many stairs. States L hip 95% better. 08/01/22: Having Bilateral hip pain rated 1/10 walking to mailbox that goes away after briefly sitting. STG Duration 08/26/21 08/01/22: Hip pain onset has lessened with injection. Group Home Goal (LTG) Pt will be able to ambulate back up a slight incline from his mailbox with less SOB. 07/22/22: hasn't done activity : kids have picked up mail. 08/01/22: SOB persists walking up an incline. A little SOB going up/down steps in the house and to enter the house. LTG Duration 09/19/22 No change 07/29/22 One Impairment Lacks appropriate self care HEP. Short Term Goal (STG) Pt will be educated in proper body mechanics for transfer and ADLs, and proper sitting and standing posture. STG Duration 07/26/22 (06/24/22: MET GOAL ) Group Home Goal (LTG) Pt will be independent and consistent with a self care HEP to manage his R sciatic pain and numbness of the toes. 06/17/22: I/S HEP: Sitting Piriformis stretch and supine SKTC stretch. 06/24/22: HEP: R hip AB, Evans SLR & Clamshell). 06/26/22: HEP: Hip stretches: Piriformis, Lateral Hip, Fig 4 & Iliopsoas stretch. 07/22/22: reviewed self STMs ball on wall over glut- good feedback massage. Review stretches daughter stand stretches. LTG Duration 09/19/22 progressed 07/22/22 Assessment Summary Assessment Pt overall feels he is improving in flexibility with PT stretches. He has had a reduction in his R LE pain and decrease in the numbness of his feet since having an injection into his back on 07/03/22 He is apparently doing standing ROM/flexibility ex's with his daughter while she is visiting, but was not able to demonstrate all the ex's; therefore it is uncertain what all he is doing as a home exercise program. Attempts to reach the daughter to verify ex's has been unsuccessful. The pt is not always able to recall ex's, but is able to do them more accurately if he has handouts. The pt would like to improve his endurance for walking to his mailbox and back, and could benefit from skilled physical therapy for gait training to decrease trunk sway and to potentially lessen the stress/pain on his hips, training for transfers to lessen the strain on his back, therapeutic ex to improve core strength and stability, STM and HEP progression as appropriate. Physical Therapy Plan Frequency and Duration Frequency of Treatment 2x/Week Plan of Care Start Date 08/01/22 Plan of Care End Date 09/19/22 Therapeutic Interventions Therapeutic Interventions Gait Training,Home Exercise Program,Manual Therapy, Neuromuscular Re-education, Patient/Caregiver Education, Self-Care/Home Management, Therapeutic Activities, Therapeutic Exercises Modalities Cold Pack/Ice Massage,Electric Stimulation,Hot Packs, Ultrasound Next Visit Focus/Plan Next Note Type Treatment Note Next Visit Plan Try to contact DA for coordiniation and review of HEP she is having her father perform at home. [facility] has provided contact info to communicate with us. No communiciation received from . POC: Rehab following LB injection for R sciatic pain and L4-L5 radicular neural changes. Assess hip (rotation) ROM. Pt education: pain management Focus on gait training to reduce trunk sway and reduce stress on hips, transfer training to lessen the strain on his back, Ex to improve core strength and stability, ex to improve endurance for walking to his mailbox and back. Monitor for posteriorly rotate R innominate and sacral dysfunction. STM (L/S paraspinals and Hip rotators) and HEP progression as appropriate.
--- NOTE | 2022-08-05 09:45 | PT.OTN ---
Current Diagnoses Nerve root and plexus disorder, unspecified (08/05/22) Spondylosis without myelopathy or radiculopathy, lumbosacral region (08/05/22) Sciatica, right side (08/05/22) Anesthesia of skin (08/05/22) Physical Therapy Treatment Note PT-OP-A Visit Information Start: 06/12/22 08:12 Freq: Status: Active Protocol: Document 08/05/22 09:02 SP (Rec: 08/05/22 09:49 SP [id number]) Out-Patient Physical Therapy Visit Information Visit Information Visit Type Treatment Note Visit Start Time 09:02 Visit Stop Time 09:45 Total Visit Minutes 43 Visit Number 48 Number of TUNNEL ELASTIC OPERATOR CHAINSTITCH Visits 1 Evaluation Information Evaluation Date 06/12/22 Precautions Precautions Currently being treated for kidney/liver dysfunction, Titanium plate in neck 5 yrs ago due to arthritis from neck injury in 1965. PT-OP-B Current Condition Start: 06/12/22 08:12 Freq: Status: Active Protocol: Document 06/12/22 10:36 LRN (Rec: 06/12/22 11:35 LRN [id number]) Current Condition History of Current Condition Onset Date Off/on forever, really bad last year Current Complaints Pain in R hip, lateral LE & foot & top/bottom of all 5 toes. History of Current Condition Pt reports chronic R Sciatic pain that has worsened in the past year. He has had 2 shots in the back (by Dr Manzo) and each time pain was relieved in the R hip. First shot were given 6 months ago and 3 weeks later had 2nd shot . Pt is scheduled to see Dr Manzo for follow up visit ( [employer], [employer]) in 4 days (Thursday) . A couple weeks ago his R toes started to go numb. Pt denies numbness of feet previously. States his pain is light in the hip and leg, but more pain in the foot and toes. Pt sometimes described his toe pain as numbness, and at other times described it as pain. Prior Treatments and Tests X-rays 02/25/22: Lumbar spine degenerative changes are seen, which are worst by plain film at L3-L4 and L4-L5. Hip X-ray 02/25/22: Moderate right hip osteoarthritis. MRI spine 02/19/22: Multilevel foraminal narrowing most severe at L5-S1 predominantly secondary to facet arthropathy. Future Testing and Treatments Planned Seeing Dr Manzo for follow up ([employer]rya, [employer]) in 4 days (Thursday) . 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 Treatment Goals Patient/Caregiver Goals Pt goals with therapy is to be able get rid of his R hip pain to be able to walk to mailbox (100 steps) and back up a sligh incline, (feels he can do stairs okay). States he is SOB on return from mailbox. Personal Factors Other Personal Factors That May Effect Titanium plate in neck 5 yrs Therapy/Recovery ago due to arthritis from neck injury in 1965. Currently being treated for kidney/liver dysfunction. PT-OP-C Subjective Start: 06/12/22 08:12 Freq: Status: Active Protocol: Document 08/05/22 09:02 SP (Rec: 08/05/22 09:49 SP [id number]) OP-PT Subjective Patient Comments Patient Comments Pt stated took out the garbage (100 steps out and back) and was little SOB when got back. He states [place] about little further from coffee shop and walks to from approx same distance for activity. PT-OP-G Mobility & Gait Start: 06/12/22 08:12 Freq: Status: Active Protocol: Document 06/12/22 10:36 LRN (Rec: 06/12/22 11:35 LRN [id number]) OP Mobility Evaluation Bed Mobility Supine to and from Sit Independent without pain. Transfers Sit to Stand Very little pain with transfer OP Gait Assessment Gait Gait Assistance Required: Independent Assistive Devices Assistive Device None Gait Deviations General Gait Pattern Decreased Stride Length, Decreased Feet Clearance, Flexed Trunk,Lateral Trunk Lean Factors Limiting Gait Function Factors Limiting Gait Function Decreased Sensation,Pain Comments Gait Comments Short steps, poor toe off, lateral trunk sway. PT-OP-H Neuro Start: 06/12/22 08:12 Freq: Status: Active Protocol: Document 06/12/22 10:36 LRN (Rec: 06/12/22 11:35 LRN [id number]) Sensation Evaluation Gross Sensation Gross Sensation Right LE Impaired Sensation Description Numbness Comments Summary Comments Numbness in R toes. Deep Tendon Reflex & Clonus Assessment Deep Tendon Reflex Left Patellar Deep Tendon Reflex 0 Absent Right Patellar Deep Tendon Reflex 1+ Diminished PT-OP-J Posture/Palpation/Skin Start: 06/12/22 08:12 Freq: Status: Active Protocol: Document 06/12/22 10:36 LRN (Rec: 06/12/22 11:35 LRN [id number]) Posture Evaluation Position Standing L-Spine Posture Flattened Pelvis Posture Anteriorly Tilted Weight Distribution Weight Shifted Right Hip Posture (L) Flexed,(R) Flexed Knee Posture (L) Genu Varus,(R) Genu Varus Comments Posture Comments Stands 15 degs hip flexion, R shoulder is low, protruding abdomen. Palpation Assessment Location Leg length Palpation Location Medial malleolus: Supine - R leg short, Long sit-Equal leg lengths Palpation Details R posteriorly rotated innominate. PT-OP-K Range of Motion Start: 06/12/22 08:12 Freq: Status: Active Protocol: Document 06/12/22 10:36 LRN (Rec: 06/12/22 11:35 LRN [id number]) Lumbar Spine Range of Motion Lumbar Spine Active Degrees Testing Position Standing Flexion 50 Extension 8 Rotation Left 2 Rotation Right 0 Lateral Flexion Left 7 Lateral Flexion Right 2 ROM Limitations Soft Tissue Tightness,Pain Comments R buttock pain with trunk flexion only. Hip Goniometric Range of Motion Hip Right Passive Testing Position Supine Straight Leg Raise 70 Internal Rotation 0 External Rotation 45 Left Passive Testing Position Supine Straight Leg Raise 70 Internal Rotation 0 External Rotation 45 PT-OP-L Special Tests Start: 06/12/22 08:12 Freq: Status: Active Protocol: Document 06/12/22 10:36 LRN (Rec: 06/12/22 11:35 LRN [id number]) Special Tests Lumbar Spine Special Tests Straight Leg Raise Test Results - Vertical Spine Loading Test Results - Hip Special Tests Posterior Labral Test Test Results - Anterior Labral Test Test Results - Scour Test Test Results - Stinchfield Resisted Hip Flexion Test Results - right Comments Pain anterior hip YONG Test Results + right Comments Pain posterior hip Log Roll Test Test Results - Comments Tight IR PT-OP-M Strength Start: 06/12/22 08:12 Freq: Status: Active Protocol: Document 06/17/22 15:15 LRN (Rec: 06/17/22 16:06 LRN [id number]) Hip Strength Hip Manual Muscle Testing Right Flexion (L2) 3+ Fair+ Extension (S1) 2 Poor Abduction 5 Normal Adduction 1 Trace Left Flexion (L2) 5 Normal Extension (S1) 5 Normal Abduction 5 Normal Adduction 1 Trace PT-OP-Q Treatments Start: 06/12/22 08:12 Freq: Status: Active Protocol: Document 08/05/22 09:02 SP (Rec: 08/05/22 09:49 SP [id number]) Cardio Equipment Recumbent Stepper (Sci-Fit) Duration (Minutes) 6 Resistance 3 Seat Position 12 (.71 miles Other UEs/ , cued knees closer together Therapeutic Exercises Supine Exercises Ilipsoas stretch Supine Exercise Name Iliopsoas stretch Side bilateral Reps/Minutes 60 SH each Comments Lower leg off table, states does athome off bed Lateral Hip stretch Supine Exercise Name Lateral Hip Stretch-to hard for pt Side right Equipment Used manual therapist, feels more pirf stretch Reps/Minutes 60 SH x 2 Comments not effective DC Piriformis stretch Supine Exercise Name Assisted Piriformis stretch Side bilateral Resistance R>L Equipment Used manual/AAROM Reps/Minutes 60 SH x 2 Comments Cuing to not force stretch, modified with R leg on bent L knee Standing Exercises wall posture Standing Exercise Name in PT Equipment Used towel behind head Reps/Minutes 2 min Comments cued pelvis, mid back, chin tuck CS back neutral calf stretch Standing Exercise Name reviewed ho wall lunge stretch : calf/ hip flex Equipment Used facingwall Reps/Minutes 20s Comments good feedback stretch, cued upright posture Gait Training Gait Activity gait Description 6MWT Device Used 0 Level of Assistance S Surface tile/carpet Distance/Duration 948 ft Treatment Focus posturing, Manual Therapy Treatment Soft Tissue Mobilization Mid back Body Location R>L mid thoracic Mobilization Type Strumming Intensity/Depth Moderate Body Position Prone Comments pt reported less tension post manual. R Upper Gluteals Body Location R>L Upper Gluteals and R>L sacral border Mobilization Type Strumming Intensity/Depth Moderate Body Position Prone Low Back Body Location R>L QL & L/S Paraspinals. Mobilization Type Strumming Intensity/Depth Moderate Body Position Prone Comments instruction self ball wall PT-OP-T Assessment and Plan Start: 06/12/22 08:12 Freq: Status: Active Protocol: Document 08/05/22 09:02 SP (Rec: 08/05/22 09:49 SP [id number]) Physical Therapy Assessment Goals Three Impairment Numbness and pain of the RLE and toes Impairment Pain in RLE and toes is 2/10. R Toes have a numb feeling. Short Term Goal (STG) Pt will be independent with a hip stretch HEP to improve hip IR and trunk flexion mobility . 07/14/22: Pt requires max cues , towel support, HOs for self recall. To challenged lateral hip stretch piriformis for home, in PT only. 07/22/22: home daughter HEP: LS flexion UE arm dangel circles, lunge calf/hip flex stretch. Reviewed self STM glut ball on wall. 08/01/22: Pt has HEP, but stopped doing ex's due to extra time taken to deal with inclement weather and house issues. Pt needing review of ex's. STG Duration 07/26/22 08/01/22: MET, but needs review Custodial Goal (LTG) Improve sensation in is R toes and eliminate pain to improve his gait mechanics, reducing his trunk sway. 07/22/22: no siginificant difference, R foot toes still numb, doesn't think injection helped. 08/01/22: No pain in R toes, only numbness. Now his evans hips hurt (prior level of function). LTG Duration 09/19/22 (08/01/22: MET GOAL after cortisone injection) Two Impairment Pain walking is 2/10. Short Term Goal (STG) Pt is able get rid of his R hip pain to be able to walk to mailbox (100 steps) and back without increasing his pain. 07/14/22: pt reports 1/10 pain upon arrival but all RLE toes numb and feel like one toe. 07/17/22: progressing: kids have been getting his mail, no pain walking around house or doing many stairs. States L hip 95% better. 08/01/22: Having Bilateral hip pain rated 1/10 walking to mailbox that goes away after briefly sitting. STG Duration 08/26/21 08/01/22: Hip pain onset has lessened with injection. Curriculum Development Manager Goal (LTG) Pt will be able to ambulate back up a slight incline from his mailbox with less SOB. 07/22/22: hasn't done activity : kids have picked up mail. 08/01/22: SOB persists walking up an incline. A little SOB going up/down steps in the house and to enter the house. 08/05/22: stated took out the garbage (100 steps out and back) and was little SOB when got back. He states [place] about little further from coffee shop and walks to from approx same distance for activity. LTG Duration 09/19/22 progressing 08/05/22 One Impairment Lacks appropriate self care HEP. Short Term Goal (STG) Pt will be educated in proper body mechanics for transfer and ADLs, and proper sitting and standing posture. STG Duration 07/26/22 (06/24/22: MET GOAL ) Curriculum Development Manager Goal (LTG) Pt will be independent and consistent with a self care HEP to manage his R sciatic pain and numbness of the toes. 06/17/22: I/S HEP: Sitting Piriformis stretch and supine SKTC stretch. 06/24/22: HEP: R hip AB, [employer]). 06/26/22: HEP: Hip stretches: Piriformis, Lateral Hip, Fig 4 & Iliopsoas stretch. 07/22/22: reviewed self STMs ball on wall over glut- good feedback massage. Review stretches daughter stand stretches. LTG Duration 09/19/22 progressed 07/22/22 Assessment Summary Assessment Pt reported able to move mid back better post manual, found iliopsoas stretch very helpful and performs at home. Pt completed 6MWT 948 ft with no AD but last 1.5 min did state increase back pain but wanted to finish to see how far walks for awareness at home progression capable of. Physical Therapy Plan Frequency and Duration Frequency of Treatment 2x/Week Plan of Care Start Date 08/01/22 Plan of Care End Date 09/19/22 Therapeutic Interventions Therapeutic Interventions Gait Training,Home Exercise Program,Manual Therapy, Neuromuscular Re-education, Patient/Caregiver Education, Self-Care/Home Management, Therapeutic Activities, Therapeutic Exercises Modalities Cold Pack/Ice Massage,Electric Stimulation,Hot Packs, Ultrasound Next Visit Focus/Plan Next Note Type Treatment Note Next Visit Plan Try to contact DA for coordiniation and review of HEP she is having her father perform at home. TUNNEL ELASTIC OPERATOR CHAINSTITCH has provided contact info to communicate with us. No communiciation received from DA. POC: Rehab following LB injection for R sciatic pain and L4-L5 radicular neural changes. Assess hip (rotation) ROM. Pt education: pain management Focus on gait training to reduce trunk sway and reduce stress on hips, transfer training to lessen the strain on his back, Ex to improve core strength and stability, ex to improve endurance for walking to his mailbox and back. Monitor for posteriorly rotate R innominate and sacral dysfunction. STM (L/S paraspinals and Hip rotators) and HEP progression as appropriate.
--- NOTE | 2022-08-08 10:32 | PT.OTN ---
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 PT-OP-B Current Condition Start: 06/12/22 08:12 Freq: Status: Active Protocol: Document 06/12/22 10:36 LRN (Rec: 06/12/22 11:35 LRN [id number]) Current Condition History of Current Condition Onset Date Off/on forever, really bad last year Current Complaints Pain in R hip, lateral LE & foot & top/bottom of all 5 toes. History of Current Condition Pt reports chronic R Sciatic pain that has worsened in the past year. He has had 2 shots in the back (by Dr Manzo) and each time pain was relieved in the R hip. First shot were given 6 months ago and 3 weeks later had 2nd shot . Pt is scheduled to see Dr Manzo for follow up visit ( [facility] [employer]) in 4 days (Thursday) . A couple weeks ago his R toes started to go numb. Pt denies numbness of feet previously. States his pain is light in the hip and leg, but more pain in the foot and toes. Pt sometimes described his toe pain as numbness, and at other times described it as pain. Prior Treatments and Tests X-rays 02/25/22: Lumbar spine degenerative changes are seen, which are worst by plain film at L3-L4 and L4-L5. Hip X-ray 02/25/22: Moderate right hip osteoarthritis. MRI spine 02/19/22: Multilevel foraminal narrowing most severe at L5-S1 predominantly secondary to facet arthropathy. Future Testing and Treatments Planned Seeing Dr Manzo for follow up ([facility] [employer]) in 4 days (Thursday) . 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 Treatment Goals Patient/Caregiver Goals Pt goals with therapy is to be able get rid of his R hip pain to be able to walk to mailbox (100 steps) and back up a sligh incline, (feels he can do stairs okay). States he is SOB on return from mailbox. Personal Factors Other Personal Factors That May Effect Titanium plate in neck 5 yrs Therapy/Recovery ago due to arthritis from neck injury in 1965. Currently being treated for kidney/liver dysfunction. PT-OP-C Subjective Start: 06/12/22 08:12 Freq: Status: Active Protocol: Document 08/08/22 09:46 SP (Rec: 08/08/22 10:33 SP [id number]) OP-PT Subjective Patient Comments Patient Comments Pt reports back does't feel much better, back still hurts when walks to far, hard to do the stretches himself. PT-OP-G Mobility & Gait Start: 06/12/22 08:12 Freq: Status: Active Protocol: Document 06/12/22 10:36 LRN (Rec: 06/12/22 11:35 LRN [id number]) OP Mobility Evaluation Bed Mobility Supine to and from Sit Independent without pain. Transfers Sit to Stand Very little pain with transfer OP Gait Assessment Gait Gait Assistance Required: Independent Assistive Devices Assistive Device None Gait Deviations General Gait Pattern Decreased Stride Length, Decreased Feet Clearance, Flexed Trunk,Lateral Trunk Lean Factors Limiting Gait Function Factors Limiting Gait Function Decreased Sensation,Pain Comments Gait Comments Short steps, poor toe off, lateral trunk sway. PT-OP-H Neuro Start: 06/12/22 08:12 Freq: Status: Active Protocol: Document 06/12/22 10:36 LRN (Rec: 06/12/22 11:35 LRN [id number]) Sensation Evaluation Gross Sensation Gross Sensation Right LE Impaired Sensation Description Numbness Comments Summary Comments Numbness in R toes. Deep Tendon Reflex & Clonus Assessment Deep Tendon Reflex Left Patellar Deep Tendon Reflex 0 Absent Right Patellar Deep Tendon Reflex 1+ Diminished PT-OP-J Posture/Palpation/Skin Start: 06/12/22 08:12 Freq: Status: Active Protocol: Document 06/12/22 10:36 LRN (Rec: 06/12/22 11:35 LRN [id number]) Posture Evaluation Position Standing L-Spine Posture Flattened Pelvis Posture Anteriorly Tilted Weight Distribution Weight Shifted Right Hip Posture (L) Flexed,(R) Flexed Knee Posture (L) Genu Varus,(R) Genu Varus Comments Posture Comments Stands 15 degs hip flexion, R shoulder is low, protruding abdomen. Palpation Assessment Location Leg length Palpation Location Medial malleolus: Supine - R leg short, Long sit-Equal leg lengths Palpation Details R posteriorly rotated innominate. PT-OP-K Range of Motion Start: 06/12/22 08:12 Freq: Status: Active Protocol: Document 06/12/22 10:36 LRN (Rec: 06/12/22 11:35 LRN [id number]) Lumbar Spine Range of Motion Lumbar Spine Active Degrees Testing Position Standing Flexion 50 Extension 8 Rotation Left 2 Rotation Right 0 Lateral Flexion Left 7 Lateral Flexion Right 2 ROM Limitations Soft Tissue Tightness,Pain Comments R buttock pain with trunk flexion only. Hip Goniometric Range of Motion Hip Right Passive Testing Position Supine Straight Leg Raise 70 Internal Rotation 0 External Rotation 45 Left Passive Testing Position Supine Straight Leg Raise 70 Internal Rotation 0 External Rotation 45 PT-OP-L Special Tests Start: 06/12/22 08:12 Freq: Status: Active Protocol: Document 06/12/22 10:36 LRN (Rec: 06/12/22 11:35 LRN [id number]) Special Tests Lumbar Spine Special Tests Straight Leg Raise Test Results - Vertical Spine Loading Test Results - Hip Special Tests Posterior Labral Test Test Results - Anterior Labral Test Test Results - Scour Test Test Results - Stinchfield Resisted Hip Flexion Test Results - right Comments Pain anterior hip YONG Test Results + right Comments Pain posterior hip Log Roll Test Test Results - Comments Tight IR PT-OP-M Strength Start: 06/12/22 08:12 Freq: Status: Active Protocol: Document 06/17/22 15:15 LRN (Rec: 06/17/22 16:06 LRN [id number]) Hip Strength Hip Manual Muscle Testing Right Flexion (L2) 3+ Fair+ Extension (S1) 2 Poor Abduction 5 Normal Adduction 1 Trace Left Flexion (L2) 5 Normal Extension (S1) 5 Normal Abduction 5 Normal Adduction 1 Trace PT-OP-Q Treatments Start: 06/12/22 08:12 Freq: Status: Active Protocol: Document 08/08/22 09:46 SP (Rec: 08/08/22 10:33 SP [id number]) Cardio Equipment Recumbent Stepper (Sci-Fit) Duration (Minutes) 2 Resistance 3 Seat Position 0.2 miles- painfree pt stated feels good movement. Other PT recommended discontinue due to SI dysfunction Recumbent Bicycle Other trial if pt wants to, equal pelvis stabilization Gym Equipment Shuttle Recovery bilateral squat Details TA glut fac- painfree good feeling motion- yellow ball betwn knees Resistance 75# Shuttle Recovery Platform Stable Reps/Time 2x12 Therapeutic Exercises Supine Exercises Ilipsoas stretch Supine Exercise Name Iliopsoas stretch Side bilateral Reps/Minutes 60 SH each Comments Lower leg off table, states does at home off bed Fig 4 stretch Supine Exercise Name Fig 4 stretch - hip ER stretch Side bilateral Resistance manual and instruction self Reps/Minutes 60 x2 Comments Extra time taken finding max tolerated position Piriformis stretch Supine Exercise Name Assisted Piriformis stretch: hip IR ROM Side bilateral Resistance AAROM stretch Equipment Used manual/ towels instruction self Reps/Minutes 60 SH x 2 Comments Cuing to not force stretch, modified with R leg on bent L knee Sitting Exercises calf/ HS stretch Sitting Exercise Name slight hip hinge, leg straight w/ AP Side bilateral Resistance trial in PT posterior chain flexibility Reps/Minutes 2x10 AP Comments slow AP ROM, states AP better lessen calf tension than sustained stretch STS Sitting Exercise Name reviewed HEP: TA Resistance AROM Reps/Minutes x10 Comments cued hip hinge, no UE support more AROM mobility w/ reps Piriformis stretch Sitting Exercise Name unable to perform sit decrease flexibility Comments DC Standing Exercises calf stretch Standing Exercise Name calf stretch at step/ wall Equipment Used contact rail Reps/Minutes 30S Comments good feedback stretch, cued upright posture Manual Therapy Treatment Soft Tissue Mobilization Mid back Body Location B mid thoracic Mobilization Type Strumming Intensity/Depth Moderate Body Position Prone Comments pt reported less tension post manual. Low Back Body Location R>L QL & L/S Paraspinals. Mobilization Type Strumming Intensity/Depth Moderate Body Position Prone Comments instruction self ball wall states does at home Neuro Re-Education Treatment Balance Activities temitope squats Comments introduced hurdles step to patterning then squat cone pickling grader for posterior chain stretch, ankle ROM in to DF, TA, stability recovery, good back alignment- no adverse affects, states little stretch LB. PT-OP-T Assessment and Plan Start: 06/12/22 08:12 Freq: Status: Active Protocol: Document 08/08/22 09:46 SP (Rec: 08/08/22 10:33 SP [id number]) Physical Therapy Assessment Goals Two Impairment Pain walking is 2/10. Short Term Goal (STG) Pt is able get rid of his R hip pain to be able to walk to mailbox (100 steps) and back without increasing his pain. 07/14/22: pt reports 1/10 pain upon arrival but all RLE toes numb and feel like one toe. 07/17/22: progressing: kids have been getting his mail, no pain walking around house or doing many stairs. States L hip 95% better. 08/01/22: Having Bilateral hip pain rated 1/10 walking to mailbox that goes away after briefly sitting. 08/08/22: pt stated did ok pulling both bins to the curb but when walking back up the hill back started hurting 4/10 . STG Duration 08/26/21 slow progress 08/08/22 Manager Php Goal (LTG) Pt will be able to ambulate back up a slight incline from his mailbox with less SOB. 07/22/22: hasn't done activity : kids have picked up mail. 08/01/22: SOB persists walking up an incline. A little SOB going up/down steps in the house and to enter the house. 08/05/22: stated took out the garbage (100 steps out and back) and was little SOB when got back. He states ramos about little further from coffee shop and walks to from approx same distance for activity. LTG Duration 09/19/22 progressing 08/05/22 One Impairment Lacks appropriate self care HEP. Short Term Goal (STG) Pt will be educated in proper body mechanics for transfer and ADLs, and proper sitting and standing posture. STG Duration 07/26/22 (06/24/22: MET GOAL ) Intermediate Goal (LTG) Pt will be independent and consistent with a self care HEP to manage his R sciatic pain and numbness of the toes. 06/17/22: I/S HEP: Sitting Piriformis stretch and supine SKTC stretch. 06/24/22: HEP: R hip AB, [employer]). 06/26/22: HEP: Hip stretches: Piriformis, Lateral Hip, Fig 4 & Iliopsoas stretch. 07/22/22: reviewed self STMs ball on wall over glut- good feedback massage. Review stretches daughter stand stretches. 08/08/22: reviewed standing calf stretching, seated HS. Pt requires manual support and ed use of towel but states forgets to do at home. LTG Duration 09/19/22 slow progression Assessment Summary Assessment Pt requires manual and review support of towel for recall for piriformis/fig 4/ iliopsoas stretch to hips, good feedback stretch response . Pt good response decrease back tension post squat pickling grader cones, emphasis on stability support, posterior chain flexibility. Discussed pt thoracic mobility and arm swings during gait, limited time end tx to perform. Physical Therapy Plan Frequency and Duration Frequency of Treatment 2x/Week Plan of Care Start Date 08/01/22 Plan of Care End Date 09/19/22 Therapeutic Interventions Therapeutic Interventions Gait Training,Home Exercise Program,Manual Therapy, Neuromuscular Re-education, Patient/Caregiver Education, Self-Care/Home Management, Therapeutic Activities, Therapeutic Exercises Modalities Cold Pack/Ice Massage,Electric Stimulation,Hot Packs, Ultrasound Next Visit Focus/Plan Next Note Type Treatment Note Next Visit Plan Ask response manual, temitope/ cone pickling grader manual hip stretching last tx. Continue shuttle recovery, trial seated core and trunk rotation TB. sport cord f/b/s stepping gait and resisted STS against resistance, temitope stepping, backward walking. Next tx: Ask if can contact for coordiniation and review of HEP she is having her father perform at home. No communiciation received from . POC: Rehab following LB injection for R sciatic pain and L4-L5 radicular neural changes. Assess hip (rotation) ROM. Pt education: pain management Focus on gait training to reduce trunk sway and reduce stress on hips, transfer training to lessen the strain on his back, Ex to improve core strength and stability, ex to improve endurance for walking to his mailbox and back. Monitor for posteriorly rotate R innominate and sacral dysfunction. STM (L/S paraspinals and Hip rotators) and HEP progression as appropriate.
--- NOTE | 2022-08-12 10:30 | PT.OTN ---
Current Diagnoses Nerve root and plexus disorder, unspecified (08/12/22) Spondylosis without myelopathy or radiculopathy, lumbosacral region (08/12/22) Sciatica, right side (08/12/22) Anesthesia of skin (08/12/22) Physical Therapy Treatment Note PT-OP-A Visit Information Start: 06/12/22 08:12 Freq: Status: Active Protocol: Document 08/12/22 09:50 SP (Rec: 08/12/22 10:34 SP [id number]) Out-Patient Physical Therapy Visit Information Visit Information Visit Type Treatment Note Visit Note 10/03 after PN Visit Start Time 09:50 Visit Stop Time 10:30 Total Visit Minutes 40 Visit Number 50 Number of ENVIRONMENTAL COMPLIANCE MANAGER 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 PT-OP-B Current Condition Start: 06/12/22 08:12 Freq: Status: Active Protocol: Document 06/12/22 10:36 LRN (Rec: 06/12/22 11:35 LRN [id number]) Current Condition History of Current Condition Onset Date Off/on forever, really bad last year Current Complaints Pain in R hip, lateral LE & foot & top/bottom of all 5 toes. History of Current Condition Pt reports chronic R Sciatic pain that has worsened in the past year. He has had 2 shots in the back (by Dr Manzo) and each time pain was relieved in the R hip. First shot were given 6 months ago and 3 weeks later had 2nd shot . Pt is scheduled to see Dr Manzo for follow up visit ( [facility], [facility]) in 4 days (Thursday) . A couple weeks ago his R toes started to go numb. Pt denies numbness of feet previously. States his pain is light in the hip and leg, but more pain in the foot and toes. Pt sometimes described his toe pain as numbness, and at other times described it as pain. Prior Treatments and Tests X-rays 02/25/22: Lumbar spine degenerative changes are seen, which are worst by plain film at L3-L4 and L4-L5. Hip X-ray 02/25/22: Moderate right hip osteoarthritis. MRI spine 02/19/22: Multilevel foraminal narrowing most severe at L5-S1 predominantly secondary to facet arthropathy. Future Testing and Treatments Planned Seeing Dr Manzo for follow up ([facility], [facility]) in 4 days (Thursday) . 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 Treatment Goals Patient/Caregiver Goals Pt goals with therapy is to be able get rid of his R hip pain to be able to walk to mailbox (100 steps) and back up a sligh incline, (feels he can do stairs okay). States he is SOB on return from mailbox. Personal Factors Other Personal Factors That May Effect Titanium plate in neck 5 yrs Therapy/Recovery ago due to arthritis from neck injury in 1965. Currently being treated for kidney/liver dysfunction. PT-OP-C Subjective Start: 06/12/22 08:12 Freq: Status: Active Protocol: Document 08/12/22 09:50 SP (Rec: 08/12/22 10:34 SP [id number]) OP-PT Subjective Patient Comments Patient Comments Pt reports goes up/ down steps many times daily and doesn't bother him but walking up incline from taking out garbage cans/going to mailbox still spasms back. He saw his grandson using a foam roller on floor to massage his back, horizontal across midback and tried it on his own at home and made his back feel good. Uses ball on wall for low back and upper back to massage tight muscles. He states does stretches laying down, sometimes forgets to get the towel for support to hold leg. PT-OP-G Mobility & Gait Start: 06/12/22 08:12 Freq: Status: Active Protocol: Document 06/12/22 10:36 LRN (Rec: 06/12/22 11:35 LRN [id number]) OP Mobility Evaluation Bed Mobility Supine to and from Sit Independent without pain. Transfers Sit to Stand Very little pain with transfer OP Gait Assessment Gait Gait Assistance Required: Independent Assistive Devices Assistive Device None Gait Deviations General Gait Pattern Decreased Stride Length, Decreased Feet Clearance, Flexed Trunk,Lateral Trunk Lean Factors Limiting Gait Function Factors Limiting Gait Function Decreased Sensation,Pain Comments Gait Comments Short steps, poor toe off, lateral trunk sway. PT-OP-H Neuro Start: 06/12/22 08:12 Freq: Status: Active Protocol: Document 06/12/22 10:36 LRN (Rec: 06/12/22 11:35 LRN [id number]) Sensation Evaluation Gross Sensation Gross Sensation Right LE Impaired Sensation Description Numbness Comments Summary Comments Numbness in R toes. Deep Tendon Reflex & Clonus Assessment Deep Tendon Reflex Left Patellar Deep Tendon Reflex 0 Absent Right Patellar Deep Tendon Reflex 1+ Diminished PT-OP-J Posture/Palpation/Skin Start: 06/12/22 08:12 Freq: Status: Active Protocol: Document 06/12/22 10:36 LRN (Rec: 06/12/22 11:35 LRN [id number]) Posture Evaluation Position Standing L-Spine Posture Flattened Pelvis Posture Anteriorly Tilted Weight Distribution Weight Shifted Right Hip Posture (L) Flexed,(R) Flexed Knee Posture (L) Genu Varus,(R) Genu Varus Comments Posture Comments Stands 15 degs hip flexion, R shoulder is low, protruding abdomen. Palpation Assessment Location Leg length Palpation Location Medial malleolus: Supine - R leg short, Long sit-Equal leg lengths Palpation Details R posteriorly rotated innominate. PT-OP-K Range of Motion Start: 06/12/22 08:12 Freq: Status: Active Protocol: Document 06/12/22 10:36 LRN (Rec: 06/12/22 11:35 LRN [id number]) Lumbar Spine Range of Motion Lumbar Spine Active Degrees Testing Position Standing Flexion 50 Extension 8 Rotation Left 2 Rotation Right 0 Lateral Flexion Left 7 Lateral Flexion Right 2 ROM Limitations Soft Tissue Tightness,Pain Comments R buttock pain with trunk flexion only. Hip Goniometric Range of Motion Hip Right Passive Testing Position Supine Straight Leg Raise 70 Internal Rotation 0 External Rotation 45 Left Passive Testing Position Supine Straight Leg Raise 70 Internal Rotation 0 External Rotation 45 PT-OP-L Special Tests Start: 06/12/22 08:12 Freq: Status: Active Protocol: Document 06/12/22 10:36 LRN (Rec: 06/12/22 11:35 LRN [id number]) Special Tests Lumbar Spine Special Tests Straight Leg Raise Test Results - Vertical Spine Loading Test Results - Hip Special Tests Posterior Labral Test Test Results - Anterior Labral Test Test Results - Scour Test Test Results - Stinchfield Resisted Hip Flexion Test Results - right Comments Pain anterior hip YONG Test Results + right Comments Pain posterior hip Log Roll Test Test Results - Comments Tight IR PT-OP-M Strength Start: 06/12/22 08:12 Freq: Status: Active Protocol: Document 06/17/22 15:15 LRN (Rec: 06/17/22 16:06 LRN [id number]) Hip Strength Hip Manual Muscle Testing Right Flexion (L2) 3+ Fair+ Extension (S1) 2 Poor Abduction 5 Normal Adduction 1 Trace Left Flexion (L2) 5 Normal Extension (S1) 5 Normal Abduction 5 Normal Adduction 1 Trace PT-OP-Q Treatments Start: 06/12/22 08:12 Freq: Status: Active Protocol: Document 08/12/22 09:50 SP (Rec: 08/12/22 10:34 SP [id number]) Cardio Equipment Recumbent Stepper (Sci-Fit) Other PT recommended discontinue due to SI dysfunction Bicycle (Upright) Duration (Minutes) 5 Resistance 10 (light resistance) Seat Position 8 Other cued TA Therapeutic Exercises Supine Exercises supine foam roller TS rolling Supine Exercise Name assessed self TS rolling stated did at home Resistance Extra time spent safety mid back only/ not upper scap. Equipment Used foam roller horizontal to spine Reps/Minutes 1 min Comments cued core fac, UE support head , knees/hips bent use for only roll midbk Fig 4 stretch Supine Exercise Name Fig 4 stretch - hip ER stretch Side bilateral Resistance AROM Reps/Minutes 30 each side Comments cues set up foot placement, cue slow allow knee settle toward floor Piriformis stretch Supine Exercise Name self Piriformis stretch: hip IR ROM Side bilateral Resistance AAROM self piriformis stretch Equipment Used towels instruction self Reps/Minutes 60 SH x 2 Comments reviewed self, good modified with R leg on bent L knee SKTC stretch Supine Exercise Name good self performance Side bilateral Equipment Used towel grasp hold behind thigh Reps/Minutes 60 x2 Comments good feedback AROM & stretch Therapeutic Activity Therapeutic Activity on/off floor Name use of Rail and upright foam roller support slow descend/ ascend Reps/Minutes x1 Comments S able to perform self w/ chair and foam roller BUE support at home. Gait Training Gait Activity walking outdoor incline/decline parkinglot Description trialed for ed back health, mechanics Device Used 0 Level of Assistance S Surface incline/decline pavement Distance/Duration 20 ft x3 laps, 3rd lap felt start to spasm Treatment Focus cued chest lift posturing, neutral pelvis, TA, eccentric soft stepping Comments cued chest lift posturing/ scap retraction neutral, core intentional engagement stepping asce/descend to allow decreased/ no back recruiment . PT-OP-T Assessment and Plan Start: 06/12/22 08:12 Freq: Status: Active Protocol: Document 08/12/22 09:50 SP (Rec: 08/12/22 10:34 SP [id number]) Physical Therapy Assessment Goals Two Impairment Pain walking is 2/10. Short Term Goal (STG) Pt is able get rid of his R hip pain to be able to walk to mailbox (100 steps) and back without increasing his pain. 07/14/22: pt reports 1/10 pain upon arrival but all RLE toes numb and feel like one toe. 07/17/22: progressing: kids have been getting his mail, no pain walking around house or doing many stairs. States L hip 95% better. 08/01/22: Having Bilateral hip pain rated 1/10 walking to mailbox that goes away after briefly sitting. 08/08/22: pt stated did ok pulling both bins to the curb but when walking back up the hill back started hurting 4/10 . 08/12/22: pt states the decline walk to mailbox/taking B garbage bins to curb is fine but coming back up incline back spasms almost locking up once get back to house, sits down for 3-4 min then goes away. Outside incline/decline forward down/back stepping improved back decrease discomfort with cues and posturing but only 2 laps, spasms during 3rd 20 ft lap. STG Duration 08/26/21 slow progress 08/12/22 Usp Goal (LTG) Pt will be able to ambulate back up a slight incline from his mailbox with less SOB. 07/22/22: hasn't done activity : kids have picked up mail. 08/01/22: SOB persists walking up an incline. A little SOB going up/down steps in the house and to enter the house. 08/05/22: stated took out the garbage (100 steps out and back) and was little SOB when got back. He states ramos about little further from coffee shop and walks to from approx same distance for activity. 08/12/22: LTG Duration 09/19/22 progressing 08/05/22 One Impairment Lacks appropriate self care HEP. Short Term Goal (STG) Pt will be educated in proper body mechanics for transfer and ADLs, and proper sitting and standing posture. STG Duration 07/26/22 (06/24/22: MET GOAL ) Viscosity Tester Goal (LTG) Pt will be independent and consistent with a self care HEP to manage his R sciatic pain and numbness of the toes. 06/17/22: I/S HEP: Sitting Piriformis stretch and supine SKTC stretch. 06/24/22: HEP: R hip AB, [employer]). 06/26/22: HEP: Hip stretches: Piriformis, Lateral Hip, Fig 4 & Iliopsoas stretch. 07/22/22: reviewed self STMs ball on wall over glut- good feedback massage. Review stretches daughter stand stretches. 08/08/22: reviewed standing calf stretching, seated HS. Pt requires manual support and ed use of towel but states forgets to do at home. 08/12/22: pt able to complete piriformis/SKTC/FIg 4 stretch with use towel in bed at home / in clinic on floor. Occasional cue for foot placement Fig 4. Good feedback stretch hip/back. LTG Duration 09/19/22 slow progression Assessment Summary Assessment ENVIRONMENTAL COMPLIANCE MANAGER assessed safety on/off floor use UE support and proper form with use supine/ floor TS rolling use foam roller, improved LE positioning and restrict to mid back/TS only decrease back tension reports, ed for safety not rolling further up back higher than lower- Mid scapula to decrease risk foam roller rolling out from underneath him and BUE support head/neck. Pt improved I with provided towel hip/ back stretching. Pt continues to have back spasming with walking up incline from taking out garbage bins/mailbox. Physical Therapy Plan Frequency and Duration Frequency of Treatment 2x/Week Plan of Care Start Date 08/01/22 Plan of Care End Date 09/19/22 Therapeutic Interventions Therapeutic Interventions Gait Training,Home Exercise Program,Manual Therapy, Neuromuscular Re-education, Patient/Caregiver Education, Self-Care/Home Management, Therapeutic Activities, Therapeutic Exercises Modalities Cold Pack/Ice Massage,Electric Stimulation,Hot Packs, Ultrasound Next Visit Focus/Plan Next Note Type Treatment Note Next Visit Plan Next tx: continue calf stretch and temitope/ cone pickling grader manual hip stretching posterior chain. Continue shuttle recovery, trial seated core and trunk rotation TB. sport cord f/b/s stepping gait and resisted STS against resistance, temitope stepping, backward walking. Next tx: Ask if can contact for coordiniation and review of HEP she is having her father perform at home. No communiciation received from . POC: Rehab following LB injection for R sciatic pain and L4-L5 radicular neural changes. Assess hip (rotation) ROM. Pt education: pain management Focus on gait training to reduce trunk sway and reduce stress on hips, transfer training to lessen the strain on his back, Ex to improve core strength and stability, ex to improve endurance for walking to his mailbox and back. Monitor for posteriorly rotate R innominate and sacral dysfunction. STM (L/S paraspinals and Hip rotators) and HEP progression as appropriate.
--- NOTE | 2022-08-19 10:30 | PT.OTN ---
Current Diagnoses Nerve root and plexus disorder, unspecified (08/19/22) Spondylosis without myelopathy or radiculopathy, lumbosacral region (08/19/22) Sciatica, right side (08/19/22) Anesthesia of skin (08/19/22) Physical Therapy Treatment Note PT-OP-A Visit Information Start: 06/12/22 08:12 Freq: Status: Active Protocol: Document 08/19/22 09:47 SP (Rec: 08/19/22 10:34 SP [id number]) Out-Patient Physical Therapy Visit Information Visit Information Visit Type Treatment Note Visit Note 11/03 after PN Visit Start Time 09:47 Visit Stop Time 10:30 Total Visit Minutes 43 Visit Number 51 Number of ELECTRICAL PROSPECTOR Visits 4 Evaluation Information Evaluation Date 06/12/22 Precautions Precautions Currently being treated for kidney/liver dysfunction, Titanium plate in neck 5 yrs ago due to arthritis from neck injury in 1965. PT-OP-B Current Condition Start: 06/12/22 08:12 Freq: Status: Active Protocol: Document 06/12/22 10:36 LRN (Rec: 06/12/22 11:35 LRN [id number]) Current Condition History of Current Condition Onset Date Off/on forever, really bad last year Current Complaints Pain in R hip, lateral LE & foot & top/bottom of all 5 toes. History of Current Condition Pt reports chronic R Sciatic pain that has worsened in the past year. He has had 2 shots in the back (by Dr Manzo) and each time pain was relieved in the R hip. First shot were given 6 months ago and 3 weeks later had 2nd shot . Pt is scheduled to see Dr Manzo for follow up visit ( [employer], [employer]) in 4 days (Thursday) . A couple weeks ago his R toes started to go numb. Pt denies numbness of feet previously. States his pain is light in the hip and leg, but more pain in the foot and toes. Pt sometimes described his toe pain as numbness, and at other times described it as pain. Prior Treatments and Tests X-rays 02/25/22: Lumbar spine degenerative changes are seen, which are worst by plain film at L3-L4 and L4-L5. Hip X-ray 02/25/22: Moderate right hip osteoarthritis. MRI spine 02/19/22: Multilevel foraminal narrowing most severe at L5-S1 predominantly secondary to facet arthropathy. Future Testing and Treatments Planned Seeing Dr Manzo for follow up ([employer]ry[employer], [employer]) in 4 days (Thursday) . 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 Treatment Goals Patient/Caregiver Goals Pt goals with therapy is to be able get rid of his R hip pain to be able to walk to mailbox (100 steps) and back up a sligh incline, (feels he can do stairs okay). States he is SOB on return from mailbox. Personal Factors Other Personal Factors That May Effect Titanium plate in neck 5 yrs Therapy/Recovery ago due to arthritis from neck injury in 1965. Currently being treated for kidney/liver dysfunction. PT-OP-C Subjective Start: 06/12/22 08:12 Freq: Status: Active Protocol: Document 08/19/22 09:47 SP (Rec: 08/19/22 10:34 SP [id number]) OP-PT Subjective Patient Comments Patient Comments Pt reports think might call a chiropractor to help mid back pain having, challenging standing up straight. PT-OP-G Mobility & Gait Start: 06/12/22 08:12 Freq: Status: Active Protocol: Document 06/12/22 10:36 LRN (Rec: 06/12/22 11:35 LRN [id number]) OP Mobility Evaluation Bed Mobility Supine to and from Sit Independent without pain. Transfers Sit to Stand Very little pain with transfer OP Gait Assessment Gait Gait Assistance Required: Independent Assistive Devices Assistive Device None Gait Deviations General Gait Pattern Decreased Stride Length, Decreased Feet Clearance, Flexed Trunk,Lateral Trunk Lean Factors Limiting Gait Function Factors Limiting Gait Function Decreased Sensation,Pain Comments Gait Comments Short steps, poor toe off, lateral trunk sway. PT-OP-H Neuro Start: 06/12/22 08:12 Freq: Status: Active Protocol: Document 06/12/22 10:36 LRN (Rec: 06/12/22 11:35 LRN [id number]) Sensation Evaluation Gross Sensation Gross Sensation Right LE Impaired Sensation Description Numbness Comments Summary Comments Numbness in R toes. Deep Tendon Reflex & Clonus Assessment Deep Tendon Reflex Left Patellar Deep Tendon Reflex 0 Absent Right Patellar Deep Tendon Reflex 1+ Diminished PT-OP-J Posture/Palpation/Skin Start: 06/12/22 08:12 Freq: Status: Active Protocol: Document 06/12/22 10:36 LRN (Rec: 06/12/22 11:35 LRN [id number]) Posture Evaluation Position Standing L-Spine Posture Flattened Pelvis Posture Anteriorly Tilted Weight Distribution Weight Shifted Right Hip Posture (L) Flexed,(R) Flexed Knee Posture (L) Genu Varus,(R) Genu Varus Comments Posture Comments Stands 15 degs hip flexion, R shoulder is low, protruding abdomen. Palpation Assessment Location Leg length Palpation Location Medial malleolus: Supine - R leg short, Long sit-Equal leg lengths Palpation Details R posteriorly rotated innominate. PT-OP-K Range of Motion Start: 06/12/22 08:12 Freq: Status: Active Protocol: Document 06/12/22 10:36 LRN (Rec: 06/12/22 11:35 LRN [id number]) Lumbar Spine Range of Motion Lumbar Spine Active Degrees Testing Position Standing Flexion 50 Extension 8 Rotation Left 2 Rotation Right 0 Lateral Flexion Left 7 Lateral Flexion Right 2 ROM Limitations Soft Tissue Tightness,Pain Comments R buttock pain with trunk flexion only. Hip Goniometric Range of Motion Hip Right Passive Testing Position Supine Straight Leg Raise 70 Internal Rotation 0 External Rotation 45 Left Passive Testing Position Supine Straight Leg Raise 70 Internal Rotation 0 External Rotation 45 PT-OP-L Special Tests Start: 06/12/22 08:12 Freq: Status: Active Protocol: Document 06/12/22 10:36 LRN (Rec: 06/12/22 11:35 LRN [id number]) Special Tests Lumbar Spine Special Tests Straight Leg Raise Test Results - Vertical Spine Loading Test Results - Hip Special Tests Posterior Labral Test Test Results - Anterior Labral Test Test Results - Scour Test Test Results - Stinchfield Resisted Hip Flexion Test Results - right Comments Pain anterior hip YONG Test Results + right Comments Pain posterior hip Log Roll Test Test Results - Comments Tight IR PT-OP-M Strength Start: 06/12/22 08:12 Freq: Status: Active Protocol: Document 06/17/22 15:15 LRN (Rec: 06/17/22 16:06 LRN [id number]) Hip Strength Hip Manual Muscle Testing Right Flexion (L2) 3+ Fair+ Extension (S1) 2 Poor Abduction 5 Normal Adduction 1 Trace Left Flexion (L2) 5 Normal Extension (S1) 5 Normal Abduction 5 Normal Adduction 1 Trace PT-OP-Q Treatments Start: 06/12/22 08:12 Freq: Status: Active Protocol: Document 08/19/22 09:47 SP (Rec: 08/19/22 10:34 SP [id number]) Therapeutic Exercises Supine Exercises LTR Supine Exercise Name initiated in PT Side bilateral Reps/Minutes x5, 2SH Comments good feedback LB stretch Ilipsoas stretch Supine Exercise Name Iliopsoas stretch Side bilateral Reps/Minutes 60 SH each Comments Lower leg off table, good hip flexor stretch Fig 4 stretch Supine Exercise Name Fig 4 stretch - hip ER stretch Side bilateral Resistance AROM Reps/Minutes 30 each side Comments cues set up foot placement, cue slow allow knee settle toward floor Piriformis stretch Supine Exercise Name self Piriformis stretch: hip IR ROM Side bilateral Resistance AAROM self piriformis stretch Equipment Used towels instruction self Reps/Minutes 60 SH x 2 Comments reviewed self, good modified with R leg on bent L knee Sidelying Exercises openbook Sidelying Exercise Name initiated in PT Side bilateral Equipment Used good midback stretch Reps/Minutes x8 reps Comments contact/verbal cue for scapular glide/TS rotation had turn with arm able. Sitting Exercises LS trunk flexion stretch Sitting Exercise Name straight back hip hinge forward- (post gait and wall posture) Reps/Minutes 15 SH x8 reps Comments cued sit front seat, WBOS- good feedback stretch STS Sitting Exercise Name reviewed HEP: TA and UE abd ER (pec stretch)- upon full stand Resistance AROM Reps/Minutes x8 reps Comments good feedback ROM stretching I can stand up better Standing Exercises wall posture Standing Exercise Name arms open low/side ER Equipment Used towel behind head Reps/Minutes 5 SH x8 reps Comments cued pelvis, mid back, chin tuck CS back neutral, TS LS toward wall calf stretch Standing Exercise Name calf stretch at step/ wall Equipment Used contact wall Reps/Minutes 30S Comments good feedback stretch, cued upright posture Gait Training Gait Activity 6MWT Description 08/05/22 Device Used 0 Level of Assistance S Surface tile/ carpet Distance/Duration 948 ft Treatment Focus posturing, foot clearance/ stride, neutral pelvis gait Description fwd, bwd Device Used 0 Level of Assistance S Surface tile/carpet Distance/Duration 340 ft (2 laps clinic) fwd, 60 ft 1aps Treatment Focus posturing, foot clearance/ stride, neutral pelvis Comments cued allow TS rotate, arms swing, foot DF clearance, scuffs 50% time fwd, good pacing, bwd cues neutral spine / chest lift to decrease LB recruitment. Neuro Re-Education Treatment Balance Activities hurdles Details fwd Surface tile, blue/green cushions Equipment 6 hurdles Reps/Duration 3 laps total Comments LOB x1 contact rail self recovery, cued slow pacing, core fac w/ tall and ankle stability over stance LE - improved with laps PT-OP-T Assessment and Plan Start: 06/12/22 08:12 Freq: Status: Active Protocol: Document 08/19/22 09:47 SP (Rec: 08/19/22 10:34 SP [id number]) Physical Therapy Assessment Goals Two Impairment Pain walking is 2/10. Short Term Goal (STG) Pt is able get rid of his R hip pain to be able to walk to mailbox (100 steps) and back without increasing his pain. 07/14/22: pt reports 1/10 pain upon arrival but all RLE toes numb and feel like one toe. 07/17/22: progressing: kids have been getting his mail, no pain walking around house or doing many stairs. States L hip 95% better. 08/01/22: Having Bilateral hip pain rated 1/10 walking to mailbox that goes away after briefly sitting. 08/08/22: pt stated did ok pulling both bins to the curb but when walking back up the hill back started hurting 4/10 . 08/12/22: pt states the decline walk to mailbox/taking B garbage bins to curb is fine but coming back up incline back spasms almost locking up once get back to house, sits down for 3-4 min then goes away. Outside incline/decline forward down/back stepping improved back decrease discomfort with cues and posturing but only 2 laps, spasms during 3rd 20 ft lap. STG Duration 08/26/21 slow progress 08/12/22 Bolt Cutter Goal (LTG) Pt will be able to ambulate back up a slight incline from his mailbox with less SOB. 07/22/22: hasn't done activity : kids have picked up mail. 08/01/22: SOB persists walking up an incline. A little SOB going up/down steps in the house and to enter the house. 08/05/22: stated took out the garbage (100 steps out and back) and was little SOB when got back. He states ramos about little further from coffee shop and walks to from approx same distance for activity. 08/12/22: pt states the decline walk to mailbox/taking B garbage bins to curb is fine but coming back up incline back spasms almost locking up once get back to house, sits down for 3-4 min then goes away. Outside incline/decline forward down/back stepping improved back decrease discomfort with cues and posturing but only 2 laps, spasms during 3rd 20 ft lap. LTG Duration 09/19/22 progressing 08/12/22 One Impairment Lacks appropriate self care HEP. Short Term Goal (STG) Pt will be educated in proper body mechanics for transfer and ADLs, and proper sitting and standing posture. STG Duration 07/26/22 (06/24/22: MET GOAL ) Bolt Cutter Goal (LTG) Pt will be independent and consistent with a self care HEP to manage his R sciatic pain and numbness of the toes. 06/17/22: I/S HEP: Sitting Piriformis stretch and supine SKTC stretch. 06/24/22: HEP: R hip AB, [employer]). 06/26/22: HEP: Hip stretches: Piriformis, Lateral Hip, Fig 4 & Iliopsoas stretch. 07/22/22: reviewed self STMs ball on wall over glut- good feedback massage. Review stretches daughter stand stretches. 08/08/22: reviewed standing calf stretching, seated HS. Pt requires manual support and ed use of towel but states forgets to do at home. 08/12/22: pt able to complete piriformis/SKTC/FIg 4 stretch with use towel in bed at home / in clinic on floor. Occasional cue for foot placement Fig 4. Good feedback stretch hip/back. 08/19/22: pt requires cue reminders for each LE stretch supine but good form: pirif, fig 4, psoas. LTG Duration 09/19/22 slow progression Assessment Summary Assessment Tx focused on self AROM TS, LS upon arrival with good feedback decrease LBP and stiffness. Pt decrease LB tightness end of 2 laps in clinic, no pain with temitope stepping initiated this tx but 1 LOB initial length rail self recovery. Requires cueing for posture, TA, slow pacing steps for stability during hurdles able to progress uneven stance time as laps progressed. Physical Therapy Plan Frequency and Duration Frequency of Treatment 2x/Week Plan of Care Start Date 08/01/22 Plan of Care End Date 09/19/22 Therapeutic Interventions Therapeutic Interventions Gait Training,Home Exercise Program,Manual Therapy, Neuromuscular Re-education, Patient/Caregiver Education, Self-Care/Home Management, Therapeutic Activities, Therapeutic Exercises Modalities Cold Pack/Ice Massage,Electric Stimulation,Hot Packs, Ultrasound Next Visit Focus/Plan Next Note Type Treatment Note Next Visit Plan Next tx: Continue shuttle recovery, wt step ups, uneven temitope stepping, dynamic HTs gait, quick stop/ starts, sport cord for functional strengthening. Next tx: Ask if can contact DA for coordiniation and review of HEP she is having her father perform at home. No communiciation received from . POC: Rehab following LB injection for R sciatic pain and L4-L5 radicular neural changes. Assess hip (rotation) ROM. Pt education: pain management Focus on gait training to reduce trunk sway and reduce stress on hips, transfer training to lessen the strain on his back, Ex to improve core strength and stability, ex to improve endurance for walking to his mailbox and back. Monitor for posteriorly rotate R innominate and sacral dysfunction. STM (L/S paraspinals and Hip rotators) and HEP progression as appropriate.
--- NOTE | 2022-08-26 17:22 | PT.OTN ---
Current Diagnoses Nerve root and plexus disorder, unspecified (08/26/22) Spondylosis without myelopathy or radiculopathy, lumbosacral region (08/26/22) Sciatica, right side (08/26/22) Anesthesia of skin (08/26/22) Physical Therapy Treatment Note PT-OP-A Visit Information Start: 06/12/22 08:12 Freq: Status: Active Protocol: Document 08/26/22 10:30 LRN (Rec: 08/26/22 12:06 LRN [id number]) Out-Patient Physical Therapy Visit Information Visit Information Visit Type Treatment Note Visit Note 12/03 after PN Visit Start Time 10:30 Visit Stop Time 11:17 Total Visit Minutes 47 Visit Number 11 Evaluation Information Evaluation Date 06/12/22 Precautions Precautions Currently being treated for kidney/liver dysfunction, Titanium plate in neck 5 yrs ago due to arthritis from neck injury in 1965. PT-OP-B Current Condition Start: 06/12/22 08:12 Freq: Status: Active Protocol: Document 06/12/22 10:36 LRN (Rec: 06/12/22 11:35 LRN [id number]) Current Condition History of Current Condition Onset Date Off/on forever, really bad last year Current Complaints Pain in R hip, lateral LE & foot & top/bottom of all 5 toes. History of Current Condition Pt reports chronic R Sciatic pain that has worsened in the past year. He has had 2 shots in the back (by Dr Manzo) and each time pain was relieved in the R hip. First shot were given 6 months ago and 3 weeks later had 2nd shot . Pt is scheduled to see Dr Manzo for follow up visit ( [employer], [employer]) in 4 days (Thursday) . A couple weeks ago his R toes started to go numb. Pt denies numbness of feet previously. States his pain is light in the hip and leg, but more pain in the foot and toes. Pt sometimes described his toe pain as numbness, and at other times described it as pain. Prior Treatments and Tests X-rays 02/25/22: Lumbar spine degenerative changes are seen, which are worst by plain film at L3-L4 and L4-L5. Hip X-ray 02/25/22: Moderate right hip osteoarthritis. MRI spine 02/19/22: Multilevel foraminal narrowing most severe at L5-S1 predominantly secondary to facet arthropathy. Future Testing and Treatments Planned Seeing Dr Manzo for follow up ([employer], [employer]) in 4 days (Thursday) . 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 Treatment Goals Patient/Caregiver Goals Pt goals with therapy is to be able get rid of his R hip pain to be able to walk to mailbox (100 steps) and back up a sligh incline, (feels he can do stairs okay). States he is SOB on return from mailbox. Personal Factors Other Personal Factors That May Effect Titanium plate in neck 5 yrs Therapy/Recovery ago due to arthritis from neck injury in 1965. Currently being treated for kidney/liver dysfunction. PT-OP-C Subjective Start: 06/12/22 08:12 Freq: Status: Active Protocol: Document 08/26/22 10:30 LRN (Rec: 08/26/22 12:06 LRN [id number]) OP-PT Subjective Patient Comments Patient Comments Same. Walking pain is 6-7/10. Leg pain has gone away since the last injection ~3 weeks ago. DA hasn't been helping him with stretches. PT-OP-G Mobility & Gait Start: 06/12/22 08:12 Freq: Status: Active Protocol: Document 06/12/22 10:36 LRN (Rec: 06/12/22 11:35 LRN [id number]) OP Mobility Evaluation Bed Mobility Supine to and from Sit Independent without pain. Transfers Sit to Stand Very little pain with transfer OP Gait Assessment Gait Gait Assistance Required: Independent Assistive Devices Assistive Device None Gait Deviations General Gait Pattern Decreased Stride Length, Decreased Feet Clearance, Flexed Trunk,Lateral Trunk Lean Factors Limiting Gait Function Factors Limiting Gait Function Decreased Sensation,Pain Comments Gait Comments Short steps, poor toe off, lateral trunk sway. PT-OP-H Neuro Start: 06/12/22 08:12 Freq: Status: Active Protocol: Document 06/12/22 10:36 LRN (Rec: 06/12/22 11:35 LRN [id number]) Sensation Evaluation Gross Sensation Gross Sensation Right LE Impaired Sensation Description Numbness Comments Summary Comments Numbness in R toes. Deep Tendon Reflex & Clonus Assessment Deep Tendon Reflex Left Patellar Deep Tendon Reflex 0 Absent Right Patellar Deep Tendon Reflex 1+ Diminished PT-OP-J Posture/Palpation/Skin Start: 06/12/22 08:12 Freq: Status: Active Protocol: Document 06/12/22 10:36 LRN (Rec: 06/12/22 11:35 LRN [id number]) Posture Evaluation Position Standing L-Spine Posture Flattened Pelvis Posture Anteriorly Tilted Weight Distribution Weight Shifted Right Hip Posture (L) Flexed,(R) Flexed Knee Posture (L) Genu Varus,(R) Genu Varus Comments Posture Comments Stands 15 degs hip flexion, R shoulder is low, protruding abdomen. Palpation Assessment Location Leg length Palpation Location Medial malleolus: Supine - R leg short, Long sit-Equal leg lengths Palpation Details R posteriorly rotated innominate. PT-OP-K Range of Motion Start: 06/12/22 08:12 Freq: Status: Active Protocol: Document 06/12/22 10:36 LRN (Rec: 06/12/22 11:35 LRN [id number]) Lumbar Spine Range of Motion Lumbar Spine Active Degrees Testing Position Standing Flexion 50 Extension 8 Rotation Left 2 Rotation Right 0 Lateral Flexion Left 7 Lateral Flexion Right 2 ROM Limitations Soft Tissue Tightness,Pain Comments R buttock pain with trunk flexion only. Hip Goniometric Range of Motion Hip Right Passive Testing Position Supine Straight Leg Raise 70 Internal Rotation 0 External Rotation 45 Left Passive Testing Position Supine Straight Leg Raise 70 Internal Rotation 0 External Rotation 45 PT-OP-L Special Tests Start: 06/12/22 08:12 Freq: Status: Active Protocol: Document 06/12/22 10:36 LRN (Rec: 06/12/22 11:35 LRN [id number]) Special Tests Lumbar Spine Special Tests Straight Leg Raise Test Results - Vertical Spine Loading Test Results - Hip Special Tests Posterior Labral Test Test Results - Anterior Labral Test Test Results - Scour Test Test Results - Stinchfield Resisted Hip Flexion Test Results - right Comments Pain anterior hip YONG Test Results + right Comments Pain posterior hip Log Roll Test Test Results - Comments Tight IR PT-OP-M Strength Start: 06/12/22 08:12 Freq: Status: Active Protocol: Document 06/17/22 15:15 LRN (Rec: 06/17/22 16:06 LRN [id number]) Hip Strength Hip Manual Muscle Testing Right Flexion (L2) 3+ Fair+ Extension (S1) 2 Poor Abduction 5 Normal Adduction 1 Trace Left Flexion (L2) 5 Normal Extension (S1) 5 Normal Abduction 5 Normal Adduction 1 Trace PT-OP-Q Treatments Start: 06/12/22 08:12 Freq: Status: Active Protocol: Document 08/26/22 10:30 LRN (Rec: 08/26/22 12:06 LRN [id number]) Cardio Equipment Treadmill Duration (Minutes) 5 Speed 0.9 Incline 0 Other Cuing for posture, heel strike & long step lengths Therapeutic Exercises Supine Exercises LTR Supine Exercise Name In PT only Side bilateral Reps/Minutes x8, 2SH Comments good feedback LB stretch Ilipsoas stretch Supine Exercise Name Iliopsoas stretch Side bilateral Reps/Minutes 60 SH each Comments Lower leg off table, good hip flexor stretch Fig 4 stretch Supine Exercise Name hip ER stretch, f/b active stretch x 10 Side bilateral Resistance AROM Reps/Minutes 30 each side Comments cues set up foot placement, cue slow allow knee settle toward floor Piriformis stretch Supine Exercise Name Assisted Piriformis stretch: hip IR ROM Side bilateral Resistance AAROM self piriformis stretch Equipment Used towels instruction self Reps/Minutes 60 SH x 1 Comments modified with R leg on bent L knee TA tightening Supine Exercise Name TA tightening during Ilipsoas stretch Reps/Minutes 2' Sidelying Exercises Clamshell Sidelying Exercise Name Clamshell w/TA Tight Side bilateral Reps/Minutes 10 x 3 Comments Cuing to hold TA and breath through chest (inhale with lift) Sitting Exercises LS trunk flexion stretch Sitting Exercise Name Trunk flex stretch, hands btn knees and return to straight sit Reps/Minutes 2 SH x10 reps Comments sitting on plinth at chair hgt , WBOS- good feedback stretch STS Sitting Exercise Name reviewed HEP: TA and UE abd ER (pec stretch)- upon full stand Resistance AROM Reps/Minutes 10x reps Comments good feedback ROM stretching, pt a little SOB Standing Exercises calf stretch Standing Exercise Name calf stretch Equipment Used TM arm rests for support and stick to keep body straight Reps/Minutes 30 SH x 4 each Comments good feedback stretch, cued upright posture PT-OP-T Assessment and Plan Start: 06/12/22 08:12 Freq: Status: Active Protocol: Document 08/26/22 10:30 LRN (Rec: 08/26/22 12:06 LRN [id number]) Physical Therapy Assessment Goals Two Impairment Pain walking is 2/10. Short Term Goal (STG) Pt is able get rid of his R hip pain to be able to walk to mailbox (100 steps) and back without increasing his pain. 07/14/22: pt reports 1/10 pain upon arrival but all RLE toes numb and feel like one toe. 07/17/22: progressing: kids have been getting his mail, no pain walking around house or doing many stairs. States L hip 95% better. 08/01/22: Having Bilateral hip pain rated 1/10 walking to mailbox that goes away after briefly sitting. 08/08/22: pt stated did ok pulling both bins to the curb but when walking back up the hill back started hurting 11/03 . 08/12/22: pt states the decline walk to mailbox/taking B garbage bins to curb is fine but coming back up incline back spasms almost locking up once get back to house, sits down for 3-4 min then goes away. Outside incline/decline forward down/back stepping improved back decrease discomfort with cues and posturing but only 2 laps, spasms during 3rd 20 ft lap. 08/26/22: Pt has problem with LBP when getting almost to the top. STG Duration 08/26/21 slow progress 08/12/22 Peoplesoft Goal (LTG) Pt will be able to ambulate back up a slight incline from his mailbox with less SOB. 07/22/22: hasn't done activity : kids have picked up mail. 08/01/22: SOB persists walking up an incline. A little SOB going up/down steps in the house and to enter the house. 08/05/22: stated took out the garbage (100 steps out and back) and was little SOB when got back. He states ramos about little further from coffee shop and walks to from approx same distance for activity. 08/12/22: pt states the decline walk to mailbox/taking B garbage bins to curb is fine but coming back up incline back spasms almost locking up once get back to house, sits down for 3-4 min then goes away. Outside incline/decline forward down/back stepping improved back decrease discomfort with cues and posturing but only 2 laps, spasms during 3rd 20 ft lap. LTG Duration 09/19/22 progressing 08/12/22 One Impairment Lacks appropriate self care HEP. Short Term Goal (STG) Pt will be educated in proper body mechanics for transfer and ADLs, and proper sitting and standing posture. STG Duration 07/26/22 (06/24/22: MET GOAL ) Shelter Goal (LTG) Pt will be independent and consistent with a self care HEP to manage his R sciatic pain and numbness of the toes. 06/17/22: I/S HEP: Sitting Piriformis stretch and supine SKTC stretch. 06/24/22: HEP: R hip AB, Evans SLR & Clamshell). 06/26/22: HEP: Hip stretches: Piriformis, Lateral Hip, Fig 4 & Iliopsoas stretch. 07/22/22: reviewed self STMs ball on wall over glut- good feedback massage. Review stretches daughter stand stretches. 08/08/22: reviewed standing calf stretching, seated HS. Pt requires manual support and ed use of towel but states forgets to do at home. 08/12/22: pt able to complete piriformis/SKTC/FIg 4 stretch with use towel in bed at home / in clinic on floor. Occasional cue for foot placement Fig 4. Good feedback stretch hip/back. 08/19/22: pt requires cue reminders for each LE stretch supine but good form: pirif, fig 4, psoas. LTG Duration 09/19/22 slow progression Assessment Summary Assessment Since the pt's cortisone injections he no longer has lateral R thigh pain but has more intense diffuse pain across his low back. The pt continues to demonstrate extreme tightness of his back and hips and poor transverse abdominal (TA)/core support, as evident with his poor ability to maintain a tight TA with clamshell ex in R sidelie (L side holds a TA much better). His posturing in standing also demonstrates poor core awareness and lack of TA tightening. Pt's posterior core muscles continue to be tight and guarded. Physical Therapy Plan Frequency and Duration Frequency of Treatment 2x/Week Plan of Care Start Date 08/01/22 Plan of Care End Date 09/19/22 Next Visit Focus/Plan Next Note Type Treatment Note Next Visit Plan Next tx: Assess hip (rotation) ROM. Pt education: pain management Continue shuttle recovery, wt step ups, uneven temitope stepping, dynamic HTs gait, quick stop/starts, sport cord for functional strengthening. Ask if can contact for coordiniation and review of HEP she is having her father perform at home. No communiciation received from . POC: Rehab following LB injection (07/03/22) for R sciatic pain and L4-L5 radicular neural changes. Focus on gait training to reduce trunk sway and reduce stress on hips, transfer training to lessen the strain on his back, Ex to improve core strength and stability, ex to improve endurance for walking to his mailbox and back. Monitor for posteriorly rotate R innominate and sacral dysfunction. DTM/MFR (L/S paraspinals and Hip rotators) and HEP progression as appropriate.
--- NOTE | 2022-08-29 16:48 | PT.OTN ---
Current Diagnoses Nerve root and plexus disorder, unspecified (08/29/22) Spondylosis without myelopathy or radiculopathy, lumbosacral region (08/29/22) Sciatica, right side (08/29/22) Anesthesia of skin (08/29/22) Physical Therapy Treatment Note PT-OP-A Visit Information Start: 06/12/22 08:12 Freq: Status: Active Protocol: Document 08/29/22 08:17 LRN (Rec: 08/29/22 09:03 LRN [id number]) Out-Patient Physical Therapy Visit Information Visit Information Visit Type Treatment Note Visit Note 01/03 after PN Visit Start Time 08:18 Visit Stop Time 08:59 Total Visit Minutes 39 Visit Number 12 Evaluation Information Evaluation Date 06/12/22 Precautions Precautions Currently being treated for kidney/liver dysfunction, Titanium plate in neck 5 yrs ago due to arthritis from neck injury in 1965. PT-OP-B Current Condition Start: 06/12/22 08:12 Freq: Status: Active Protocol: Document 06/12/22 10:36 LRN (Rec: 06/12/22 11:35 LRN [id number]) Current Condition History of Current Condition Onset Date Off/on forever, really bad last year Current Complaints Pain in R hip, lateral LE & foot & top/bottom of all 5 toes. History of Current Condition Pt reports chronic R Sciatic pain that has worsened in the past year. He has had 2 shots in the back (by Dr Manzo) and each time pain was relieved in the R hip. First shot were given 6 months ago and 3 weeks later had 2nd shot . Pt is scheduled to see Dr Manzo for follow up visit ( [facility] Lapel Padder) in 4 days (Thursday) . A couple weeks ago his R toes started to go numb. Pt denies numbness of feet previously. States his pain is light in the hip and leg, but more pain in the foot and toes. Pt sometimes described his toe pain as numbness, and at other times described it as pain. Prior Treatments and Tests X-rays 02/25/22: Lumbar spine degenerative changes are seen, which are worst by plain film at L3-L4 and L4-L5. Hip X-ray 02/25/22: Moderate right hip osteoarthritis. MRI spine 02/19/22: Multilevel foraminal narrowing most severe at L5-S1 predominantly secondary to facet arthropathy. Future Testing and Treatments Planned Seeing Dr Manzo for follow up ([facility], Sports and Lapel Padder) in 4 days (Thursday) . 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 Treatment Goals Patient/Caregiver Goals Pt goals with therapy is to be able get rid of his R hip pain to be able to walk to mailbox (100 steps) and back up a sligh incline, (feels he can do stairs okay). States he is SOB on return from mailbox. Personal Factors Other Personal Factors That May Effect Titanium plate in neck 5 yrs Therapy/Recovery ago due to arthritis from neck injury in 1965. Currently being treated for kidney/liver dysfunction. PT-OP-C Subjective Start: 06/12/22 08:12 Freq: Status: Active Protocol: Document 08/29/22 08:17 LRN (Rec: 08/29/22 09:03 LRN [id number]) OP-PT Subjective Patient Comments Patient Comments Worked in the yard yesterday cutting jose on the [place]. Has pain sitting in car. 3 toes of R foot still numb but not as much, and no R lateral thigh pain since last injection. PT-OP-G Mobility & Gait Start: 06/12/22 08:12 Freq: Status: Active Protocol: Document 06/12/22 10:36 LRN (Rec: 06/12/22 11:35 LRN [id number]) OP Mobility Evaluation Bed Mobility Supine to and from Sit Independent without pain. Transfers Sit to Stand Very little pain with transfer OP Gait Assessment Gait Gait Assistance Required: Independent Assistive Devices Assistive Device None Gait Deviations General Gait Pattern Decreased Stride Length, Decreased Feet Clearance, Flexed Trunk,Lateral Trunk Lean Factors Limiting Gait Function Factors Limiting Gait Function Decreased Sensation,Pain Comments Gait Comments Short steps, poor toe off, lateral trunk sway. PT-OP-H Neuro Start: 06/12/22 08:12 Freq: Status: Active Protocol: Document 06/12/22 10:36 LRN (Rec: 06/12/22 11:35 LRN [id number]) Sensation Evaluation Gross Sensation Gross Sensation Right LE Impaired Sensation Description Numbness Comments Summary Comments Numbness in R toes. Deep Tendon Reflex & Clonus Assessment Deep Tendon Reflex Left Patellar Deep Tendon Reflex 0 Absent Right Patellar Deep Tendon Reflex 1+ Diminished PT-OP-J Posture/Palpation/Skin Start: 06/12/22 08:12 Freq: Status: Active Protocol: Document 06/12/22 10:36 LRN (Rec: 06/12/22 11:35 LRN [id number]) Posture Evaluation Position Standing L-Spine Posture Flattened Pelvis Posture Anteriorly Tilted Weight Distribution Weight Shifted Right Hip Posture (L) Flexed,(R) Flexed Knee Posture (L) Genu Varus,(R) Genu Varus Comments Posture Comments Stands 15 degs hip flexion, R shoulder is low, protruding abdomen. Palpation Assessment Location Leg length Palpation Location Medial malleolus: Supine - R leg short, Long sit-Equal leg lengths Palpation Details R posteriorly rotated innominate. PT-OP-K Range of Motion Start: 06/12/22 08:12 Freq: Status: Active Protocol: Document 08/29/22 08:17 LRN (Rec: 08/29/22 09:03 LRN [id number]) Lumbar Spine Range of Motion Lumbar Spine Active Degrees Testing Position Standing Flexion 50 Extension 10 Rotation Left 5 Rotation Right 5 Lateral Flexion Left 10 Lateral Flexion Right 5 Hip Goniometric Range of Motion Hip Right Passive Straight Leg Raise 80 Internal Rotation 10 External Rotation 50 Left Passive Straight Leg Raise 75 Internal Rotation 10 External Rotation 50 PT-OP-L Special Tests Start: 06/12/22 08:12 Freq: Status: Active Protocol: Document 06/12/22 10:36 LRN (Rec: 06/12/22 11:35 LRN [id number]) Special Tests Lumbar Spine Special Tests Straight Leg Raise Test Results - Vertical Spine Loading Test Results - Hip Special Tests Posterior Labral Test Test Results - Anterior Labral Test Test Results - Scour Test Test Results - Stinchfield Resisted Hip Flexion Test Results - right Comments Pain anterior hip YONG Test Results + right Comments Pain posterior hip Log Roll Test Test Results - Comments Tight IR PT-OP-M Strength Start: 06/12/22 08:12 Freq: Status: Active Protocol: Document 06/17/22 15:15 LRN (Rec: 06/17/22 16:06 LRN [id number]) Hip Strength Hip Manual Muscle Testing Right Flexion (L2) 3+ Fair+ Extension (S1) 2 Poor Abduction 5 Normal Adduction 1 Trace Left Flexion (L2) 5 Normal Extension (S1) 5 Normal Abduction 5 Normal Adduction 1 Trace PT-OP-Q Treatments Start: 06/12/22 08:12 Freq: Status: Active Protocol: Document 08/29/22 08:17 LRN (Rec: 08/29/22 09:03 LRN [id number]) Cardio Equipment Bicycle (Upright) Duration (Minutes) 7 Resistance 10 (light resistance) Seat Position 8 Other cued TA Therapeutic Exercises Supine Exercises Hamstring stretch Supine Exercise Name PSLR Side bilateral Reps/Minutes 4' Comments ROM taken, Extra time taken to determine max tolerated stretch. Fig 4 stretch Supine Exercise Name hip ER stretch, f/b active stretch x 10 Side bilateral Resistance AROM Reps/Minutes 30 each side Comments ROM taken Piriformis stretch Supine Exercise Name Assisted Piriformis stretch: hip IR ROM Side bilateral Resistance AAROM self piriformis stretch Equipment Used towels instruction self Reps/Minutes 60 SH x 1 Comments ROM taken raheem, modified with R leg on bent L knee Standing Exercises Trunk AROM Standing Exercise Name Flex, Ext, SB, rot stretch Side bilateral Comments ROM taken Self-Care/Home Management Treatment Education Other Education Reviewed: Proper posture [employer] to Safe Movement and discussed strain/stress on back in different positions. Reinforced for pt to keep pain down, he needs to have good body mechanics. Educated & discussed with pt pain management with RICE handout issued. PT-OP-T Assessment and Plan Start: 06/12/22 08:12 Freq: Status: Active Protocol: Document 08/29/22 08:17 LRN (Rec: 08/29/22 09:03 LRN [id number]) Physical Therapy Assessment Goals Two Impairment Pain walking is 2/10. Short Term Goal (STG) Pt is able get rid of his R hip pain to be able to walk to mailbox (100 steps) and back without increasing his pain. 07/14/22: pt reports 1/10 pain upon arrival but all RLE toes numb and feel like one toe. 07/17/22: progressing: kids have been getting his mail, no pain walking around house or doing many stairs. States L hip 95% better. 08/01/22: Having Bilateral hip pain rated 1/10 walking to mailbox that goes away after briefly sitting. 08/08/22: pt stated did ok pulling both bins to the curb but when walking back up the hill back started hurting 4/10 . 08/12/22: pt states the decline walk to mailbox/taking B garbage bins to curb is fine but coming back up incline back spasms almost locking up once get back to house, sits down for 3-4 min then goes away. Outside incline/decline forward down/back stepping improved back decrease discomfort with cues and posturing but only 2 laps, spasms during 3rd 20 ft lap. 08/26/22: Pt has problem with LBP when getting almost to the top. 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 07/22/22: hasn't done activity : kids have picked up mail. 08/01/22: SOB persists walking up an incline. A little SOB going up/down steps in the house and to enter the house. 08/05/22: stated took out the garbage (100 steps out and back) and was little SOB when got back. He states ramos about little further from coffee shop and walks to from approx same distance for activity. 08/12/22: pt states the decline walk to mailbox/taking B garbage bins to curb is fine but coming back up incline back spasms almost locking up once get back to house, sits down for 3-4 min then goes away. Outside incline/decline forward down/back stepping improved back decrease discomfort with cues and posturing but only 2 laps, spasms during 3rd 20 ft lap. LTG Duration 09/19/22 progressing 08/12/22 One Impairment Lacks appropriate self care HEP. Short Term Goal (STG) Pt will be educated in proper body mechanics for transfer and ADLs, and proper sitting and standing posture. STG Duration 07/26/22 (06/24/22: MET GOAL ) Chili [employer]er Goal (LTG) Pt will be independent and consistent with a self care HEP to manage his R sciatic pain and numbness of the toes. 06/17/22: I/S HEP: Sitting Piriformis stretch and supine SKTC stretch. 06/24/22: HEP: R hip AB, Raheem SLR & Clamshell). 06/26/22: HEP: Hip stretches: Piriformis, Lateral Hip, Fig 4 & Iliopsoas stretch. 07/22/22: reviewed self STMs ball on wall over glut- good feedback massage. Review stretches daughter stand stretches. 08/08/22: reviewed standing calf stretching, seated HS. Pt requires manual support and ed use of towel but states forgets to do at home. 08/12/22: pt able to complete piriformis/SKTC/FIg 4 stretch with use towel in bed at home / in clinic on floor. Occasional cue for foot placement Fig 4. Good feedback stretch hip/back. 08/19/22: pt requires cue reminders for each LE stretch supine but good form: pirif, fig 4, psoas. 08/29/22: Educated in pain management (SHAWANDA) and DC'd trunk rot stretch, cautioned on sup Ilipsosas stretch. LTG Duration 09/19/22 slow progression 08/29 Assessment Summary Assessment Pt is not too receptive to trying to modify his activities to lessen the strain on his back. He was however receptive to education for pain management (SHAWANDA). Pt has gained ~5 deg's mobility of the hips (PSLR, ER , IR). No significant change with trunk mobility. Trunk rot stretch is causing increased LBP; therefore ex was discontinued. No communiciation received from DA. Physical Therapy Plan Frequency and Duration Frequency of Treatment 2x/Week Plan of Care Start Date 08/01/22 Plan of Care End Date 09/19/22 Next Visit Focus/Plan Next Note Type Treatment Note Next Visit Plan Probable DC in [address] on HEP (Ex to improve core strength and stability, ex to improve endurance for walking to his mailbox and back), review and DC the subsequent visit if no change in presentation. May continue shuttle recovery, wt step ups, uneven temitope stepping, dynamic HTs gait, quick stop/starts, sport cord for functional strengthening. POC: Rehab following LB injection (07/03/22) for diffuse LBP/R SIJ pain. Focus on gait training to reduce trunk sway and reduce stress on hips, transfer training to lessen the strain on his back, Monitor for posteriorly rotate R innominate and sacral dysfunction. DTM/MFR (L/S paraspinals and Hip rotators) and HEP progression as appropriate.
--- NOTE | 2022-09-02 18:10 | PT.OTN ---
Current Diagnoses Nerve root and plexus disorder, unspecified (09/02/22) Spondylosis without myelopathy or radiculopathy, lumbosacral region (09/02/22) Sciatica, right side (09/02/22) Anesthesia of skin (09/02/22) Physical Therapy Treatment Note PT-OP-A Visit Information Start: 06/12/22 08:12 Freq: Status: Active Protocol: Document 09/02/22 10:35 LRN (Rec: 09/02/22 11:22 LRN [id number]) Out-Patient Physical Therapy Visit Information Visit Information Visit Type Treatment Note Visit Start Time 10:35 Visit Stop Time 11:16 Total Visit Minutes 41 Visit Number 13 Evaluation Information Evaluation Date 06/12/22 Precautions Precautions Currently being treated for kidney/liver dysfunction, Titanium plate in neck 5 yrs ago due to arthritis from neck injury in 1965. PT-OP-B Current Condition Start: 06/12/22 08:12 Freq: Status: Active Protocol: Document 06/12/22 10:36 LRN (Rec: 06/12/22 11:35 LRN [id number]) Current Condition History of Current Condition Onset Date Off/on forever, really bad last year Current Complaints Pain in R hip, lateral LE & foot & top/bottom of all 5 toes. History of Current Condition Pt reports chronic R Sciatic pain that has worsened in the past year. He has had 2 shots in the back (by Dr Manzo) and each time pain was relieved in the R hip. First shot were given 6 months ago and 3 weeks later had 2nd shot . Pt is scheduled to see Dr Manzo for follow up visit ( [facility]) in 4 days (Thursday) . A couple weeks ago his R toes started to go numb. Pt denies numbness of feet previously. States his pain is light in the hip and leg, but more pain in the foot and toes. Pt sometimes described his toe pain as numbness, and at other times described it as pain. Prior Treatments and Tests X-rays 02/25/22: Lumbar spine degenerative changes are seen, which are worst by plain film at L3-L4 and L4-L5. Hip X-ray 02/25/22: Moderate right hip osteoarthritis. MRI spine 02/19/22: Multilevel foraminal narrowing most severe at L5-S1 predominantly secondary to facet arthropathy. Future Testing and Treatments Planned Seeing Dr Manzo for follow up ([facility]) in 4 days (Thursday) . 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 Treatment Goals Patient/Caregiver Goals Pt goals with therapy is to be able get rid of his R hip pain to be able to walk to mailbox (100 steps) and back up a sligh incline, (feels he can do stairs okay). States he is SOB on return from mailbox. Personal Factors Other Personal Factors That May Effect Titanium plate in neck 5 yrs Therapy/Recovery ago due to arthritis from neck injury in 1965. Currently being treated for kidney/liver dysfunction. PT-OP-C Subjective Start: 06/12/22 08:12 Freq: Status: Active Protocol: Document 09/02/22 10:35 LRN (Rec: 09/02/22 11:22 LRN [id number]) OP-PT Subjective Patient Comments Patient Comments Feeling better, the back is moving better. When getting into the car it doesn't hurt as bad. States he has not been doing work like he was. PT-OP-G Mobility & Gait Start: 06/12/22 08:12 Freq: Status: Active Protocol: Document 06/12/22 10:36 LRN (Rec: 06/12/22 11:35 LRN [id number]) OP Mobility Evaluation Bed Mobility Supine to and from Sit Independent without pain. Transfers Sit to Stand Very little pain with transfer OP Gait Assessment Gait Gait Assistance Required: Independent Assistive Devices Assistive Device None Gait Deviations General Gait Pattern Decreased Stride Length, Decreased Feet Clearance, Flexed Trunk,Lateral Trunk Lean Factors Limiting Gait Function Factors Limiting Gait Function Decreased Sensation,Pain Comments Gait Comments Short steps, poor toe off, lateral trunk sway. PT-OP-H Neuro Start: 06/12/22 08:12 Freq: Status: Active Protocol: Document 06/12/22 10:36 LRN (Rec: 06/12/22 11:35 LRN [id number]) Sensation Evaluation Gross Sensation Gross Sensation Right LE Impaired Sensation Description Numbness Comments Summary Comments Numbness in R toes. Deep Tendon Reflex & Clonus Assessment Deep Tendon Reflex Left Patellar Deep Tendon Reflex 0 Absent Right Patellar Deep Tendon Reflex 1+ Diminished PT-OP-J Posture/Palpation/Skin Start: 06/12/22 08:12 Freq: Status: Active Protocol: Document 06/12/22 10:36 LRN (Rec: 06/12/22 11:35 LRN [id number]) Posture Evaluation Position Standing L-Spine Posture Flattened Pelvis Posture Anteriorly Tilted Weight Distribution Weight Shifted Right Hip Posture (L) Flexed,(R) Flexed Knee Posture (L) Genu Varus,(R) Genu Varus Comments Posture Comments Stands 15 degs hip flexion, R shoulder is low, protruding abdomen. Palpation Assessment Location Leg length Palpation Location Medial malleolus: Supine - R leg short, Long sit-Equal leg lengths Palpation Details R posteriorly rotated innominate. PT-OP-K Range of Motion Start: 06/12/22 08:12 Freq: Status: Active Protocol: Document 08/29/22 08:17 LRN (Rec: 08/29/22 09:03 LRN [id number]) Lumbar Spine Range of Motion Lumbar Spine Active Degrees Testing Position Standing Flexion 50 Extension 10 Rotation Left 5 Rotation Right 5 Lateral Flexion Left 10 Lateral Flexion Right 5 Hip Goniometric Range of Motion Hip Right Passive Straight Leg Raise 80 Internal Rotation 10 External Rotation 50 Left Passive Straight Leg Raise 75 Internal Rotation 10 External Rotation 50 PT-OP-L Special Tests Start: 06/12/22 08:12 Freq: Status: Active Protocol: Document 06/12/22 10:36 LRN (Rec: 06/12/22 11:35 LRN [id number]) Special Tests Lumbar Spine Special Tests Straight Leg Raise Test Results - Vertical Spine Loading Test Results - Hip Special Tests Posterior Labral Test Test Results - Anterior Labral Test Test Results - Scour Test Test Results - Stinchfield Resisted Hip Flexion Test Results - right Comments Pain anterior hip YONG Test Results + right Comments Pain posterior hip Log Roll Test Test Results - Comments Tight IR PT-OP-M Strength Start: 06/12/22 08:12 Freq: Status: Active Protocol: Document 06/17/22 15:15 LRN (Rec: 06/17/22 16:06 LRN [id number]) Hip Strength Hip Manual Muscle Testing Right Flexion (L2) 3+ Fair+ Extension (S1) 2 Poor Abduction 5 Normal Adduction 1 Trace Left Flexion (L2) 5 Normal Extension (S1) 5 Normal Abduction 5 Normal Adduction 1 Trace PT-OP-Q Treatments Start: 06/12/22 08:12 Freq: Status: Active Protocol: Document 09/02/22 10:35 LRN (Rec: 09/02/22 11:22 LRN [id number]) Therapeutic Exercises Supine Exercises Hamstring stretch Supine Exercise Name PSLR Side bilateral Reps/Minutes 4' Comments ROM taken, Extra time taken to determine max tolerated stretch. Ilipsoas stretch Supine Exercise Name Iliopsoas stretch Side bilateral Reps/Minutes 60 SH each Comments Lower leg off table, good hip flexor stretch Fig 4 stretch Supine Exercise Name hip ER stretch, f/b active stretch x 10 Side bilateral Resistance AROM Reps/Minutes 30 each side Comments ROM taken Piriformis stretch Supine Exercise Name Assisted Piriformis stretch: hip IR ROM Side bilateral Resistance AAROM self piriformis stretch Equipment Used Gait belt in place of towel Reps/Minutes 60 SH x 1 Comments ROM taken raheem, modified with R leg on bent L knee TA tightening Supine Exercise Name TA tightening during hip stretch Comments Much cuing of abdomen to pull in and breathe through chest Sidelying Exercises ABD Sidelying Exercise Name TA/Hip AB Side bilateral Resistance AROM Reps/Minutes 10x Comments Cuing to hold TA and breath through chest (inhale with lift) Clamshell Sidelying Exercise Name Clamshell w/TA Tight Side bilateral Reps/Minutes 10 Comments Cuing to hold TA and breath through chest (inhale with lift) Sitting Exercises LS trunk flexion stretch Sitting Exercise Name Trunk flex stretch, hands btn knees and return to straight sit Reps/Minutes 2 SH x10 reps Comments sitting on plinth at chair hgt , WBOS- good feedback stretch calf/ HS stretch Sitting Exercise Name slight hip hinge, leg straight w/ AP Side bilateral Reps/Minutes 3x10 AP Comments slow AP ROM, states AP better lessen calf tension than sustained stretch Standing Exercises Trunk AROM Standing Exercise Name SB stretch Side bilateral Reps/Minutes 2' Self-Care/Home Management Treatment Education Patient Education Body Mechanics,Home Exercise Program,Joint Protection,Pain Management Activities Self-Care/Home Management Activities Issued & reviewed sitting Hamsting/LE neural stretch. PT-OP-T Assessment and Plan Start: 06/12/22 08:12 Freq: Status: Active Protocol: Document 09/02/22 10:35 LRN (Rec: 09/02/22 11:22 LRN [id number]) Physical Therapy Assessment Goals Two Impairment Pain walking is 2/10. Short Term Goal (STG) Pt is able get rid of his R hip pain to be able to walk to mailbox (100 steps) and back without increasing his pain. 07/14/22: pt reports 1/10 pain upon arrival but all RLE toes numb and feel like one toe. 07/17/22: progressing: kids have been getting his mail, no pain walking around house or doing many stairs. States L hip 95% better. 08/01/22: Having Bilateral hip pain rated 1/10 walking to mailbox that goes away after briefly sitting. 08/08/22: pt stated did ok pulling both bins to the curb but when walking back up the hill back started hurting 11/03 . 08/12/22: pt states the decline walk to mailbox/taking B garbage bins to curb is fine but coming back up incline back spasms almost locking up once get back to house, sits down for 3-4 min then goes away. Outside incline/decline forward down/back stepping improved back decrease discomfort with cues and posturing but only 2 laps, spasms during 3rd 20 ft lap. 08/26/22: Pt has problem with LBP when getting almost to the top. STG Duration 08/26/21 slow progress 08/12/22 Behavioral Health Director Goal (LTG) Pt will be able to ambulate back up a slight incline from his mailbox with less SOB. 07/22/22: hasn't done activity : kids have picked up mail. 08/01/22: SOB persists walking up an incline. A little SOB going up/down steps in the house and to enter the house. 08/05/22: stated took out the garbage (100 steps out and back) and was little SOB when got back. He states ramos about little further from coffee shop and walks to from approx same distance for activity. 08/12/22: pt states the decline walk to mailbox/taking B garbage bins to curb is fine but coming back up incline back spasms almost locking up once get back to house, sits down for 3-4 min then goes away. Outside incline/decline forward down/back stepping improved back decrease discomfort with cues and posturing but only 2 laps, spasms during 3rd 20 ft lap. LTG Duration 09/19/22 progressing 08/12/22 One Impairment Lacks appropriate self care HEP. Short Term Goal (STG) Pt will be educated in proper body mechanics for transfer and ADLs, and proper sitting and standing posture. STG Duration 07/26/22 (06/24/22: MET GOAL ) [facility] Goal (LTG) Pt will be independent and consistent with a self care HEP to manage his R sciatic pain and numbness of the toes. 09/02/22: No R sciatic pain and pt reports toes are almost normal 06/17/22: I/S HEP: Sitting Piriformis stretch and supine SKTC stretch. 09/02/22: Issued HEP: LE hamstring/neural stretch 06/24/22: HEP: R hip AB, Raheem SLR & Clamshell). 06/26/22: HEP: Hip stretches: Piriformis, Lateral Hip, Fig 4 & Iliopsoas stretch. 07/22/22: reviewed self STMs ball on wall over glut- good feedback massage. Review stretches daughter stand stretches. 08/08/22: reviewed standing calf stretching, seated HS. Pt requires manual support and ed use of towel but states forgets to do at home. 08/12/22: pt able to complete piriformis/SKTC/FIg 4 stretch with use towel in bed at home / in clinic on floor. Occasional cue for foot placement Fig 4. Good feedback stretch hip/back. 08/19/22: pt requires cue reminders for each LE stretch supine but good form: pirif, fig 4, psoas. 08/29/22: Educated in pain management (SHAWANDA) and DC'd trunk rot stretch, cautioned on sup Ilipsosas stretch. 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 Pt needed review of Hamstring/LE stretch and was receptive to being consistent on HEP. Pt demonstrates good body mechanics for transfers. Physical Therapy Plan Frequency and Duration Frequency of Treatment 2x/Week Plan of Care Start Date 08/01/22 Plan of Care End Date 09/19/22 Next Visit Focus/Plan Next Note Type Treatment Note Next Visit Plan Probable DC next visit. Review pt's modification to his walking on incline from his mailbox for relief of back pain through either stopping to Posterior pelvic tilt or slight FB to relieve LBP. Review HEP for DC (Ex to improve core strength and stability, ex to improve endurance for walking to his mailbox and back), if no change in presentation. POC: Rehab following LB injection (07/03/22) for diffuse LBP/R SIJ pain. Assess gait, and train to reduce trunk sway and reduce stress on hips. Monitor for posteriorly rotate R innominate and sacral dysfunction. May continue shuttle recovery, wt step ups, uneven temitope stepping, dynamic HTs gait, quick stop/starts, sport cord for functional strengthening.
--- NOTE | 2022-09-16 18:27 | PT.OTN ---
Current Diagnoses Nerve root and plexus disorder, unspecified (09/16/22) Spondylosis without myelopathy or radiculopathy, lumbosacral region (09/16/22) Sciatica, right side (09/16/22) Anesthesia of skin (09/16/22) Physical Therapy Treatment Note PT-OP-A Visit Information Start: 06/12/22 08:12 Freq: Status: Active Protocol: Document 09/16/22 09:06 LRN (Rec: 09/16/22 09:50 LRN [id number]) Out-Patient Physical Therapy Visit Information Visit Information Visit Type Treatment Note Visit Start Time 09:06 Visit Stop Time 09:58 Total Visit Minutes 52 Visit Number 14 Evaluation Information Evaluation Date 06/12/22 Precautions Precautions Currently being treated for kidney/liver dysfunction, Titanium plate in neck 5 yrs ago due to arthritis from neck injury in 1965. PT-OP-B Current Condition Start: 06/12/22 08:12 Freq: Status: Active Protocol: Document 06/12/22 10:36 LRN (Rec: 06/12/22 11:35 LRN [id number]) Current Condition History of Current Condition Onset Date Off/on forever, really bad last year Current Complaints Pain in R hip, lateral LE & foot & top/bottom of all 5 toes. History of Current Condition Pt reports chronic R Sciatic pain that has worsened in the past year. He has had 2 shots in the back (by Dr Manzo) and each time pain was relieved in the R hip. First shot were given 6 months ago and 3 weeks later had 2nd shot . Pt is scheduled to see Dr Manzo for follow up visit ( [facility] [employer]) in 4 days (Thursday) . A couple weeks ago his R toes started to go numb. Pt denies numbness of feet previously. States his pain is light in the hip and leg, but more pain in the foot and toes. Pt sometimes described his toe pain as numbness, and at other times described it as pain. Prior Treatments and Tests X-rays 02/25/22: Lumbar spine degenerative changes are seen, which are worst by plain film at L3-L4 and L4-L5. Hip X-ray 02/25/22: Moderate right hip osteoarthritis. MRI spine 02/19/22: Multilevel foraminal narrowing most severe at L5-S1 predominantly secondary to facet arthropathy. Future Testing and Treatments Planned Seeing Dr Manzo for follow up ([facility] [employer]) in 4 days (Thursday) . 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 Treatment Goals Patient/Caregiver Goals Pt goals with therapy is to be able get rid of his R hip pain to be able to walk to mailbox (100 steps) and back up a sligh incline, (feels he can do stairs okay). States he is SOB on return from mailbox. Personal Factors Other Personal Factors That May Effect Titanium plate in neck 5 yrs Therapy/Recovery ago due to arthritis from neck injury in 1965. Currently being treated for kidney/liver dysfunction. PT-OP-C Subjective Start: 06/12/22 08:12 Freq: Status: Active Protocol: Document 09/16/22 09:06 LRN (Rec: 09/16/22 09:50 LRN [id number]) OP-PT Subjective Patient Comments Patient Comments No pain in R toes, LE, hip. Has LBP rated 4-5/10. Patient Questionnaires Oswestry Low Back Index Oswestry Score 8 Oswestry Impairment 1 to 19% Impaired (Score 1-19) PT-OP-G Mobility & Gait Start: 06/12/22 08:12 Freq: Status: Active Protocol: Document 06/12/22 10:36 LRN (Rec: 06/12/22 11:35 LRN [id number]) OP Mobility Evaluation Bed Mobility Supine to and from Sit Independent without pain. Transfers Sit to Stand Very little pain with transfer OP Gait Assessment Gait Gait Assistance Required: Independent Assistive Devices Assistive Device None Gait Deviations General Gait Pattern Decreased Stride Length, Decreased Feet Clearance, Flexed Trunk,Lateral Trunk Lean Factors Limiting Gait Function Factors Limiting Gait Function Decreased Sensation,Pain Comments Gait Comments Short steps, poor toe off, lateral trunk sway. PT-OP-H Neuro Start: 06/12/22 08:12 Freq: Status: Active Protocol: Document 06/12/22 10:36 LRN (Rec: 06/12/22 11:35 LRN [id number]) Sensation Evaluation Gross Sensation Gross Sensation Right LE Impaired Sensation Description Numbness Comments Summary Comments Numbness in R toes. Deep Tendon Reflex & Clonus Assessment Deep Tendon Reflex Left Patellar Deep Tendon Reflex 0 Absent Right Patellar Deep Tendon Reflex 1+ Diminished PT-OP-J Posture/Palpation/Skin Start: 06/12/22 08:12 Freq: Status: Active Protocol: Document 06/12/22 10:36 LRN (Rec: 06/12/22 11:35 LRN [id number]) Posture Evaluation Position Standing L-Spine Posture Flattened Pelvis Posture Anteriorly Tilted Weight Distribution Weight Shifted Right Hip Posture (L) Flexed,(R) Flexed Knee Posture (L) Genu Varus,(R) Genu Varus Comments Posture Comments Stands 15 degs hip flexion, R shoulder is low, protruding abdomen. Palpation Assessment Location Leg length Palpation Location Medial malleolus: Supine - R leg short, Long sit-Equal leg lengths Palpation Details R posteriorly rotated innominate. PT-OP-K Range of Motion Start: 06/12/22 08:12 Freq: Status: Active Protocol: Document 08/29/22 08:17 LRN (Rec: 08/29/22 09:03 LRN [id number]) Lumbar Spine Range of Motion Lumbar Spine Active Degrees Testing Position Standing Flexion 50 Extension 10 Rotation Left 5 Rotation Right 5 Lateral Flexion Left 10 Lateral Flexion Right 5 Hip Goniometric Range of Motion Hip Right Passive Straight Leg Raise 80 Internal Rotation 10 External Rotation 50 Left Passive Straight Leg Raise 75 Internal Rotation 10 External Rotation 50 PT-OP-L Special Tests Start: 06/12/22 08:12 Freq: Status: Active Protocol: Document 06/12/22 10:36 LRN (Rec: 06/12/22 11:35 LRN [id number]) Special Tests Lumbar Spine Special Tests Straight Leg Raise Test Results - Vertical Spine Loading Test Results - Hip Special Tests Posterior Labral Test Test Results - Anterior Labral Test Test Results - Scour Test Test Results - Stinchfield Resisted Hip Flexion Test Results - right Comments Pain anterior hip YONG Test Results + right Comments Pain posterior hip Log Roll Test Test Results - Comments Tight IR PT-OP-M Strength Start: 06/12/22 08:12 Freq: Status: Active Protocol: Document 06/17/22 15:15 LRN (Rec: 06/17/22 16:06 LRN [id number]) Hip Strength Hip Manual Muscle Testing Right Flexion (L2) 3+ Fair+ Extension (S1) 2 Poor Abduction 5 Normal Adduction 1 Trace Left Flexion (L2) 5 Normal Extension (S1) 5 Normal Abduction 5 Normal Adduction 1 Trace PT-OP-Q Treatments Start: 06/12/22 08:12 Freq: Status: Active Protocol: Document 09/16/22 09:06 LRN (Rec: 09/16/22 14:24 LRN [id number]) Therapeutic Exercises Supine Exercises Active Hip AB Supine Exercise Name Active Hip AB - review of HEP Side right TA tightening Supine Exercise Name TA tightening - review of HEP Comments Cuing of abdomen to pull in and breathe through chest Sidelying Exercises Clamshell Sidelying Exercise Name Clamshell w/TA Tight Side bilateral Reps/Minutes 10 Comments Cuing to hold TA and breath through chest (inhale with lift) Sitting Exercises Foot swings Sitting Exercise Name Slider and Tensioner swings for LE neural mobs Side bilateral Reps/Minutes 8' Comments Extra time to gain coordination of ex with swings . LS trunk flexion stretch Sitting Exercise Name Trunk flex stretch, hands btn knees and return to straight sit Reps/Minutes 2 SH x10 reps Comments sitting on plinth at chair hgt , WBOS- good feedback stretch Standing Exercises Hip Ext Standing Exercise Name Hip Ext Side bilateral Reps/Minutes 3' Hip AD Standing Exercise Name Hip AD Side bilateral Reps/Minutes 3' Hip Flex Standing Exercise Name Hip Flex - Marching Side bilateral Reps/Minutes 6' Therapeutic Activity Therapeutic Activity Transfer training Name Sit>Supine>Sit Reps/Minutes x3 Comments Phys & v cuing needed and extra education on effect of poor mechanics with transfer. Self-Care/Home Management Treatment Education Patient Education Home Exercise Program Activities Self-Care/Home Management Activities Issued & reviewed HEP: Sitting FB lumbar flex stretch of 1 sec x 10, & Seated foot swings for Slider and Tensioner lower leg nerve mobs . PT-OP-T Assessment and Plan Start: 06/12/22 08:12 Freq: Status: Active Protocol: Document 09/16/22 09:06 LRN (Rec: 09/16/22 09:50 LRN [id number]) Physical Therapy Assessment Goals Three Impairment Numbness and pain of the RLE and toes Impairment Pain in RLE and toes is 2/10. R Toes have a numb feeling. Short Term Goal (STG) Pt will be independent with a hip stretch HEP to improve hip IR and trunk flexion mobility . 07/14/22: Pt requires max cues , towel support, HOs for self recall. To challenged lateral hip stretch piriformis for home, in PT only. 07/22/22: home daughter HEP: LS flexion UE arm dangel circles, lunge calf/hip flex stretch. Reviewed self STM glut ball on wall. 08/01/22: Pt has HEP, but stopped doing ex's due to extra time taken to deal with inclement weather and house issues. Pt needing review of ex's. STG Duration 07/26/22 08/01/22: MET, but needs review Residential Goal (LTG) Improve sensation in is R toes and eliminate pain to improve his gait mechanics, reducing his trunk sway. 07/22/22: no siginificant difference, R foot toes still numb, doesn't think injection helped. 08/01/22: No pain in R toes, only numbness. Now his raheem hips hurt (prior level of function). LTG Duration 09/19/22 (08/01/22: MET GOAL after cortisone injection) Two Impairment Pain walking is 2/10. Short Term Goal (STG) Pt is able get rid of his R hip pain to be able to walk to mailbox (100 steps) and back without increasing his pain. 07/14/22: pt reports 1/10 pain upon arrival but all RLE toes numb and feel like one toe. 07/17/22: progressing: kids have been getting his mail, no pain walking around house or doing many stairs. States L hip 95% better. 08/01/22: Having Bilateral hip pain rated 1/10 walking to mailbox that goes away after briefly sitting. 08/08/22: pt stated did ok pulling both bins to the curb but when walking back up the hill back started hurting 4/10 . 08/12/22: pt states the decline walk to mailbox/taking B garbage bins to curb is fine but coming back up incline back spasms almost locking up once get back to house, sits down for 3-4 min then goes away. Outside incline/decline forward down/back stepping improved back decrease discomfort with cues and posturing but only 2 laps, spasms during 3rd 20 ft lap. 08/26/22: Pt has problem with LBP when getting almost to the top. 09/16/22: No hip pain walking down to mailbox and back until he start walking up the stairs to his house, LBP rated 4-5/10. STG Duration 08/26/21 (09/16/22: Partially met goal) Residential Goal (LTG) Pt will be able to ambulate back up a slight incline from his mailbox with less SOB. 07/22/22: hasn't done activity : kids have picked up mail. 08/01/22: SOB persists walking up an incline. A little SOB going up/down steps in the house and to enter the house. 08/05/22: stated took out the garbage (100 steps out and back) and was little SOB when got back. He states ramos about little further from coffee shop and walks to from approx same distance for activity. 08/12/22: pt states the decline walk to mailbox/taking B garbage bins to curb is fine but coming back up incline back spasms almost locking up once get back to house, sits down for 3-4 min then goes away. Outside incline/decline forward down/back stepping improved back decrease discomfort with cues and posturing but only 2 laps, spasms during 3rd 20 ft lap. 09/16/22: SOB at top of steps on return from walk to mailbox . LTG Duration 09/19/22 (09/16/22: Improved, goal not met) One Impairment Lacks appropriate self care HEP. Short Term Goal (STG) Pt will be educated in proper body mechanics for transfer and ADLs, and proper sitting and standing posture. STG Duration 07/26/22 (06/24/22: MET GOAL ) Residential Goal (LTG) Pt will be independent and consistent with a self care HEP to manage his R sciatic pain and numbness of the toes. 09/02/22: No R sciatic pain and pt reports toes are almost normal 06/17/22: I/S HEP: Sitting Piriformis stretch and supine SKTC stretch. 09/02/22: Issued HEP: LE hamstring/neural stretch 06/24/22: HEP: R hip AB, Raheem SLR & Clamshell). 06/26/22: HEP: Hip stretches: Piriformis, Lateral Hip, Fig 4 & Iliopsoas stretch. 07/22/22: reviewed self STMs ball on wall over glut- good feedback massage. Review stretches daughter stand stretches. 08/08/22: reviewed standing calf stretching, seated HS. Pt requires manual support and ed use of towel but states forgets to do at home. 08/12/22: pt able to complete piriformis/SKTC/FIg 4 stretch with use towel in bed at home / in clinic on floor. Occasional cue for foot placement Fig 4. Good feedback stretch hip/back. 08/19/22: pt requires cue reminders for each LE stretch supine but good form: pirif, fig 4, psoas. 08/29/22: Educated in pain management (SHAWANDA) and DC'd trunk rot stretch, cautioned on sup Ilipsosas stretch. LTG Duration 09/19/22 (09/16/22: MET GOAL for his current condition ) Assessment Summary Assessment Pt appears to have lack of endurance that limits his function of walking to his mailbox and back. He does have pain limiting intensity once he reaches his house on the return, but is now able to walk to his mailbox and back. The pt demonstrates somewhat poor compliance to proper body mechanics with transfers into bed, but when cued shows good understanding of how to properly transfer to avoid onset of back pain. He has met most of his goals and the pt feels ready to be placed on his HEP due to his R LE pain resolved. He is now only dealing with LBP since his cortisone injections. Physical Therapy Plan Discharge Physical Therapy Discharge Reasons Plateau in Progress Discharge Comments Thank you for your referral.
--- NOTE | 2022-09-18 16:23 | PT.OPDS ---
Current Diagnoses Nerve root and plexus disorder, unspecified (09/16/22) Spondylosis without myelopathy or radiculopathy, lumbosacral region (09/16/22) Sciatica, right side (09/16/22) Anesthesia of skin (09/16/22) Visit Care Team Role Provider Type Kali Manzo MD Non-Staff Specialty: Physical Medicine and Rehab Address: [address] [place] [address], [id number] Email: CHRISTOPHER Colvin Attending Provider Advanced [employer] Family Provider Primary Care Provider Referring Provider Specialty: Family Practice Address: [address] [place] [address], [id number] Email: [email or web address] Visit Number Visit Number 14
== END 2022-09-17 15:48 | disposition home or self-care (01) ==
LOC: PHYS 09:00
PROVIDERS: Absent Provider Specialist; Family Provider Nurse Practitioner; PCP Nurse Practitioner; Referring Provider Nurse Practitioner; Visit Provider Nurse Practitioner
DX: G54.9 Nerve root and plexus disorder, unspecified (principal); M47.817 Spondylosis without myelopathy or radiculopathy, lumbosacral region; M54.31 Sciatica, right side; R20.0 Anesthesia of skin
CPT/HCPCS: 97110; 97116; 97140; 97162; 97535

== ENCOUNTER → 2022-12-02 15:26 | Outpatient (CLI) | payer MEDICARE, SELFPAY ==
[2022-12-02 17:37] LABS: Hematocrit 38.3 % (41-53); Hemoglobin 13.4 g/dL (13.5-17.5); Mean Corpuscular HGB Conc 34.9 % (30-36); Mean Corpuscular Hemoglobin 31.2 PG (26-34); Mean Corpuscular Volume 89.3 fL (80-100); Platelet Count 181 X10^3/uL (150-400); Red Blood Cell Count 4.29 X10^6/uL (4.5-5.9); Red Cell Distribution Width 14.8 % (11.6-14.8)
[2022-12-02 18:30] LABS: Alanine Aminotransferase 55 IU/L (<50); Albumin Globulin Ratio 1.4 (1.0-2.8); Alkaline Phosphatase 60 U/L (38-126); Aspartate Aminotransferase 45 IU/L (17-59); BUN Creatinine Ratio 15.3 (6-22); Bilirubin Total 0.7 mg/dL (0.2-1.3); Blood Urea Nitrogen 17 mg/dL (9-20); Carbon Dioxide 26 mmol/L (22-32); Chloride 103 mmol/L (98-107); Estimated Glomerular Filt Rate > 60 mL/min (>60); Globulin 2.8 g/dL (1.7-4.1); Glucose 75 mg/dL (80-110); HEMOLYSIS < 15 (0-50); Total Protein 6.8 g/dL (6.3-8.2)
[2022-12-02 18:37] LABS: Sodium 136 mmol/L (137-145)
== END ==
PROVIDERS: Family Provider Nurse Practitioner; PCP Nurse Practitioner; Referring Provider Nurse Practitioner Family; Visit Provider Nurse Practitioner Family
DX: R14.0 Abdominal distension (gaseous) (principal)
CPT/HCPCS: 36415; 80053; 85027

== ENCOUNTER → 2022-12-04 09:23 | Outpatient (CLI) | payer MEDICARE, SELFPAY ==
--- NOTE | 2022-12-04 09:24 | DI.US.S_ITS ---
PROCEDURE: US ABDOMEN COMPLETE INDICATIONS: abdominal bloating TECHNIQUE: Real-time scanning was performed of the abdominal and retroperitoneal organs, with image documentation. COMPARISON: [facility], CT, CT KIDNEY URETER BLADDER (KUB), 06/18/2022, 14:18. [facility], US, US ABDOMEN COMPLETE, 06/16/2022, 8:50. FINDINGS: Liver: The liver demonstrates mildly enlarged size. The liver demonstrates generalized moderately increased echogenicity. This decreases ultrasound sensitivity for detection of hepatic masses. Gallbladder: Mobile gallstones are seen. The gallbladder wall is not thickened, measuring 3 mm or less. No specific pericholecystic fluid is seen. The sonographic Figueroa sign is negative. Biliary ducts: Intrahepatic bile ducts are non-dilated. Extrahepatic bile duct caliber measures 4 mm. Normal is 6-7 mm or less in diameter, or 10 mm or less post-cholecystectomy. Pancreas: Visualized portions of the pancreas are sonographically normal. Spleen: Spleen is normal in size and homogeneous in echotexture. Kidneys: Right kidney measures 11.9 cm long; left kidney measures 13.5 cm long. No showing stones. No solid masses. Right kidney peripelvic cysts are seen. Apparent left kidney peripelvic cysts are also present. No naty hydronephrosis is seen. Aorta: Visualized aorta is normal in caliber at less than 3 cm. Iliacs: Not seen. IVC: Intrahepatic inferior vena cava is patent. Miscellaneous: No free abdominal fluid. IMPRESSION: No imaging explanation is found for this patient's presenting symptoms. Gallstones are seen, yet without additional sonographic signs of cholecystitis. Negative for biliary dilatation. Please correlate with physical examination findings, patient presentation, and laboratory values. Bilateral renal peripelvic cysts. Dictated by: Yossi Brown M.D. on 12/04/2022 at 12:10 Approved by: Yossi Brown M.D. on 12/04/2022 at 12:12
== END ==
PROVIDERS: Family Provider Nurse Practitioner; PCP Nurse Practitioner; Referring Provider Nurse Practitioner Family; Visit Provider Nurse Practitioner Family
DX: K76.0 Fatty (change of) liver, not elsewhere classified (principal); R14.0 Abdominal distension (gaseous); N28.1 Cyst of kidney, acquired
CPT/HCPCS: 76700

== ENCOUNTER → 2022-12-18 16:21 | Outpatient (CLI) | payer MEDICARE, SELFPAY ==
[2022-12-18 17:41] LABS: Alanine Aminotransferase 65 IU/L (<50); Albumin 4.3 g/dL (3.5-5.0); Albumin Globulin Ratio 1.4 (1.0-2.8); Alkaline Phosphatase 62 U/L (38-126); Aspartate Aminotransferase 47 IU/L (17-59); BUN Creatinine Ratio 17.8 (6-22); Bilirubin Total 0.7 mg/dL (0.2-1.3); Blood Urea Nitrogen 18 mg/dL (9-20); Calcium 9.1 mg/dL (8.4-10.2); Carbon Dioxide 25 mmol/L (22-32); Chloride 105 mmol/L (98-107); Estimated Glomerular Filt Rate > 60 mL/min (>60); Globulin 3.1 g/dL (1.7-4.1); Glucose 100 mg/dL (80-110); HEMOLYSIS < 15 (0-50); Sodium 139 mmol/L (137-145); Total Protein 7.4 g/dL (6.3-8.2)
[2022-12-18 17:50] LABS: NT-proBNP (BNP-Adult 18+) 56 pg/mL (<450)
[2022-12-18 17:52] LABS: Free T4, Direct Thyroxine 0.74 ng/dL (0.78-2.19)
== END ==
PROVIDERS: Family Provider Nurse Practitioner; PCP Nurse Practitioner; Referring Provider Internal Medicine; Visit Provider Internal Medicine
DX: I50.9 Heart failure, unspecified (principal); I48.91 Unspecified atrial fibrillation; I48.92 Unspecified atrial flutter
CPT/HCPCS: 36415; 80053; 83735; 83880; 84439; 84443

== ENCOUNTER → 2022-12-19 14:49 | Outpatient (CLI) | payer MEDICARE, SELFPAY ==
--- NOTE | 2022-12-19 14:50 | DI.RAD.S_ITS ---
PROCEDURE: XR CHEST 2V INDICATIONS: afib TECHNIQUE: 2 views of the chest were acquired. COMPARISON: [facility], CR, XR CHEST 2V, 12/23/2018, 8:53. FINDINGS: Surgical changes and devices: None. Lungs and pleura: Lungs are clear. No pleural effusions or pneumothorax. Mediastinum: Mediastinal contours are normal. Heart size is normal. Bones and chest wall: No suspicious bony abnormalities. Soft tissues appear unremarkable. IMPRESSION: No acute cardiopulmonary disease. Dictated by: Yu Norris M.D. on 12/19/2022 at 16:58 Approved by: Yu Norris M.D. on 12/19/2022 at 16:58
== END ==
PROVIDERS: Family Provider Nurse Practitioner; PCP Nurse Practitioner; Referring Provider Internal Medicine; Visit Provider Internal Medicine
DX: I48.91 Unspecified atrial fibrillation (principal)
CPT/HCPCS: 71046

== ENCOUNTER → 2023-01-01 07:59 | Outpatient (CLI) | payer MEDICARE, SELFPAY ==
--- NOTE | 2023-01-01 08:00 | DI.ECHO.S_ITS ---
[facility]---------+ [facility] +---------+ : : [address] : : : : [id number] : : : : Phone: [phone] +---------+ Echocardiogram Report + + :Name: CHICO VARGAS Study Date: 01/01/2023 Height: 70 in : :[facility] ReadingLocation: Weight: 250 lb : : Gender: Male BSA: 2.3 m2 : :: 1940 Age: 82 yrs BP: 175/83 mmHg: :Reason For Study: Atrial Fibrillation : :Ordering Physician: Jarred, : :Kimmie Performed By: Jennifer Huang : :Referring: KIMMIE CHOI R : + + Interpretation Summary 1) Moderately increased left ventricular thickness (concentric) with normal size, normal wall motion, and normal systolic function (EF 55-60%). 2) Normal right ventricular size and function. 3) No significant valvular abnormalities. 4( Hypertension present during the study (BP 175/83mmHg). 5) Compared to the Echo done 10/30/2012, no significant change. Procedure: A two-dimensional transthoracic echocardiogram with color flow and Doppler was performed. The study quality was technically difficult. Comparison is made with the echocardiogram of 10/30/2012. The patient was in normal sinus rhythm during the exam. Left Ventricle: The left ventricle is normal in size. There is moderate concentric left ventricular hypertrophy. The ejection fraction is estimated to be 55-60%. Left ventricular systolic function appears normal without focal wall motion abnormalities. Diastolic parameters suggest a relaxation abnormality of the left ventricle, consistent with probable normal filling pressures. Right Ventricle: The right ventricle is normal size. The right ventricular systolic function is normal. Atria: The left atrial size is normal. Right atrial size is normal. There is no Doppler evidence for an interatrial shunt. Mitral Valve: The mitral valve is normal. There is no mitral valve stenosis. There is no mitral regurgitation noted. Aortic Valve: The aortic valve is trileaflet. The aortic valve opens well. There is no aortic valve stenosis. No aortic regurgitation is present. Tricuspid Valve: The tricuspid valve is normal. There is no tricuspid stenosis. No tricuspid regurgitation. Pulmonary artery pressures cannot be estimated because of the lack of a measurable TR jet velocity. Pulmonic Valve: The pulmonic valve leaflets are thin and pliable; valve motion is normal. There is no pulmonic valvular stenosis. There is no pulmonic valvular regurgitation. Great Vessels: The aortic root is normal size. The ascending aorta is normal in size. The pulmonary artery is normal size. The IVC is of normal diameter and collapses greater than 50% with a sniff. This suggests a low right atrial pressure of 3 mm Hg. Pericardium/ Pleura There is no pericardial effusion. There is no pleural effusion. MMode/2D Measurements & Calculations LVIDd: 4.7 cm LVOT diam: 2.2 cm LVIDs: 3.3 cm Ao root diam: 3.7 cm FS: 29.8 % asc Aorta Diam: 3.2 cm IVSd: 1.8 cm LVPWd: 1.8 cm LV tompkins. diameter/BSA (cm/m^2): 2.0 LV sys. diameter/BSA (cm/m^2): 1.4 LA A2 area: 14.1 cm2 RA long axis: 5.2 cm LA A4 area: 15.8 cm2 RA area: 11.3 cm2 LA length (vol): 4.9 cm RA vol: 21.1 ml LA vol: 38.7 ml RA : 9.2 ml/m2 LA vol index: 16.9 ml/m2 RVD1 (basal): 3.7 cm LVLs ap4: 6.8 cm LVLd ap2: 7.3 cm TAPSE_phl: 2.1 cm LVLs ap2: 5.8 cm Doppler Measurements & Calculations Ao V2 max: 156.0 cm/sec LVOT Max Benigno: 113.0 cm/sec Ao V2 mean: 116.0 cm/sec LV V1 max P.1 mmHg Ao max P.0 mmHg LV V1 VTI: 23.4 cm Ao mean P.0 mmHg TAMARA(I,D): 2.8 cm2 Ao V2 VTI: 31.3 cm TAMARA(V,D): 2.8 cm2 sev ratio: 0.75 TAMARA indexed to BSA (cm^2/m^2): 1.2 MV E max benigno: 76.3 cm/sec PA V2 max: 133.0 cm/sec MV A max benigno: 99.8 cm/sec PA V2 mean: 99.1 cm/sec MV E/A: 0.76 PA mean P.0 mmHg Med Peak E' Benigno: 4.7 cm/sec PA pr(Accel): 20.9 mmHg E/E' med: 16.1 Lat Peak E' Benigno: 7.9 cm/sec E/E' lat: 9.6 E/e' average: 12.9 MV dec time: 0.26 sec SV(LVOT): 89.0 ml AV VR_phl: 0.72 TAMARA(VTI)/BSA_phl: 1.2 Reading Physician:12:47 PM
== END ==
PROVIDERS: Family Provider Nurse Practitioner; PCP Nurse Practitioner; Referring Provider Internal Medicine; Visit Provider Internal Medicine
DX: I48.91 Unspecified atrial fibrillation (principal); I48.92 Unspecified atrial flutter
CPT/HCPCS: 93306

== ENCOUNTER → 2023-01-05 09:42 | Outpatient (CLI) | payer MEDICARE, SELFPAY | PROVIDERS: Family Provider Nurse Practitioner; PCP Nurse Practitioner; Referring Provider Internal Medicine; Visit Provider Internal Medicine | DX: I48.91 Unspecified atrial fibrillation (principal); I48.92 Unspecified atrial flutter | CPT/HCPCS: 93246 ==

== ENCOUNTER → 2023-01-23 11:07 | Outpatient (CLI) | payer MEDICARE, SELFPAY ==
[2023-01-23 12:38] LABS: BUN Creatinine Ratio 18.8 (6-22); Blood Urea Nitrogen 19 mg/dL (9-20); Carbon Dioxide 26 mmol/L (22-32); Chloride 104 mmol/L (98-107); Estimated Glomerular Filt Rate > 60 mL/min (>60); Glucose 85 mg/dL (80-110); HEMOLYSIS < 15 (0-50); Potassium 4.2 mmol/L (3.4-5.1); Sodium 138 mmol/L (137-145)
[2023-01-23 13:05] LABS: Appearance Urine UA CLEAR; Bilirubin Urine UA NEGATIVE (NEGATIVE); Color Urine UA YELLOW; Glucose Urine UA NEGATIVE (Negative); Ketones Urine UA TRACE (NEGATIVE); Leukocyte Esterase Urine UA NEGATIVE (NEGATIVE); Nitrite Urine UA NEGATIVE (Negative); Occult Blood Urine UA NEGATIVE (Negative); Protein Urine UA NEGATIVE (Negative); pH Urine UA 5.5 (4.5-8.0)
[2023-01-23 13:13] LABS: Bacteria Urine Occasional (0-1); Culture Indicated Urine Cult Not Indicated; RBC Urine 0-1/HPF (0-5/HPF); Squamous Epithelial Cell Urine 0-1 /HPF (0-5/HPF); WBC Urine 0-1/HPF (0-5/HPF)
[2023-01-23 14:48] LABS: Sodium Urine Random 73 mmol/L (30-90)
[2023-01-23 15:32] LABS: Protein (Total) Urine Random < 5 mg/dL (0-12)
[2023-01-23 15:33] LABS: Protein Creatinine Ratio Urine < 0.01 GRAM/24H
== END ==
PROVIDERS: Family Provider Nurse Practitioner; PCP Nurse Practitioner; Referring Provider Student in an Organized Health Care Education/Training Program; Visit Provider Student in an Organized Health Care Education/Training Program
DX: N05.9 Unspecified nephritic syndrome with unspecified morphologic changes (principal); N30.00 Acute cystitis without hematuria; R80.9 Proteinuria, unspecified; E87.1 Hypo-osmolality and hyponatremia
CPT/HCPCS: 36415; 80048; 81001; 82570; 84156; 84300

== ENCOUNTER → 2023-03-02 06:46 | Outpatient (CLI) | payer MEDICARE, SELFPAY ==
[2023-03-02 08:31] LABS: Hematocrit 37.9 % (41-53); Hemoglobin 13.5 g/dL (13.5-17.5); Mean Corpuscular HGB Conc 35.7 % (30-36); Mean Corpuscular Hemoglobin 31.7 PG (26-34); Platelet Count 181 X10^3/uL (150-400); Red Blood Cell Count 4.26 X10^6/uL (4.5-5.9); Red Cell Distribution Width 14.4 % (11.6-14.8)
[2023-03-02 08:48] LABS: Alanine Aminotransferase 55 IU/L (<50); Albumin Globulin Ratio 1.5 (1.0-2.8); Alkaline Phosphatase 57 U/L (38-126); Aspartate Aminotransferase 42 IU/L (17-59); BUN Creatinine Ratio 16.5 (6-22); Bilirubin Total 0.7 mg/dL (0.2-1.3); Blood Urea Nitrogen 14 mg/dL (9-20); Calcium 9.1 mg/dL (8.4-10.2); Carbon Dioxide 26 mmol/L (22-32); Chloride 104 mmol/L (98-107); Cholesterol 89 mg/dL (140-199); Estimated Glomerular Filt Rate > 60 mL/min (>60); Globulin 2.7 g/dL (1.7-4.1); Glucose 94 mg/dL (80-110); HDL Cholesterol 24 mg/dL (40-60); HEMOLYSIS < 15 (0-50); LDL Cholesterol Calculated 13 mg/dL (<100); Potassium 3.9 mmol/L (3.4-5.1); Sodium 137 mmol/L (137-145); Total Protein 6.7 g/dL (6.3-8.2); Triglycerides 261 mg/dL (35-150)
[2023-03-02 08:56] LABS: Free T3, Triiodothyronine Free 4.15 pg/mL (2.77-5.27); Free T4, Direct Thyroxine 0.82 ng/dL (0.78-2.19)
[2023-03-02 09:10] LABS: Thyroid Stimulating Hormone 2.82 uIU/mL (0.47-4.68)
[2023-03-02 09:22] LABS: Creatinine Urine Random 191.6 mg/dL
[2023-03-02 09:26] LABS: Microalbumi Creatinin Ratio Ur 16.1 ug/mg CR (<30); Microalbumin Urine Random 3.1 mg/dL (0-1.6)
== END ==
PROVIDERS: Family Provider Nurse Practitioner; PCP Nurse Practitioner; Referring Provider Nurse Practitioner; Visit Provider Nurse Practitioner
DX: D64.9 Anemia, unspecified (principal); E78.2 Mixed hyperlipidemia; I10 Essential (primary) hypertension; I47.1 Supraventricular tachycardia; K76.0 Fatty (change of) liver, not elsewhere classified; Z79.899 Other long term (current) drug therapy
CPT/HCPCS: 36415; 80053; 80061; 82043; 82570; 84439; 84443; 84481; 85027

== ENCOUNTER → 2023-03-23 09:10 | Outpatient (CLI) | payer MEDICARE, SELFPAY ==
--- NOTE | 2023-03-23 09:10 | DI.ECHO.S_ITS ---
[facility] +---------+ [facility] +---------+ : : [address] : : : : [id number] : : : : Phone: [phone] +---------+ Echocardiogram Report + + :Name: CHICO VARGAS Study Date: 03/23/2023 Height: 70 in : :[facility] ReadingLocation: Weight: 250 lb : : Gender: Male BSA: 2.3 m2 : :: 1940 Age: 82 yrs BP: 117/75 mmHg: :Reason For Study: TACHYCARDIA : :Ordering Physician: LEXI, : :SHARATH Performed By: Steph Yu : :Referring: SHARATH ELLIOTT : + + Interpretation Summary There is moderate concentric left ventricular hypertrophy. The ejection fraction is estimated to be 55-60%. Procedure: Images were not obtained from all of the standard acoustic windows due to the limited scope of the study. The study quality was technically adequate. Comparison is made with the echocardiogram of 01/01/2023. The patient was in sinus rhythm with heart rates between 68-79 bpm during the exam. Left Ventricle: The left ventricle is normal in size. There is moderate concentric left ventricular hypertrophy. The ejection fraction is estimated to be 55-60%. Right Ventricle: The right ventricle is normal in size and function. Tricuspid Valve: The tricuspid valve is normal in structure and function. Pulmonary artery pressures cannot be estimated because of the lack of a measurable TR jet velocity. Great Vessels: The aortic root is normal size. The ascending aorta is mildly enlarged. The IVC is of normal diameter and collapses greater than 50% with a sniff. This suggests a low right atrial pressure of 3 mm Hg. Pericardium/ Pleura There is no pericardial effusion. There is no pleural effusion. MMode/2D Measurements & Calculations LVIDd: 4.4 cm LVOT diam: 2.3 cm LVIDs: 2.9 cm Ao root diam: 3.6 cm FS: 34.1 % asc Aorta Diam: 3.9 cm EPSS: 0.89 cm IVSd: 1.7 cm LVPWd: 1.5 cm LV tompkins. diameter/BSA (cm/m^2): 1.9 LV sys. diameter/BSA (cm/m^2): 1.3 IVC diam: 1.5 cm RVD1 (basal): 3.4 cm TAPSE: 2.3 cm Reading Physician:02:34 PM
== END ==
PROVIDERS: Family Provider Nurse Practitioner; PCP Nurse Practitioner; Referring Provider Nurse Practitioner; Visit Provider Nurse Practitioner
DX: I77.89 Other specified disorders of arteries and arterioles (principal); I44.0 Atrioventricular block, first degree; I47.29 Other ventricular tachycardia; R55 Syncope and collapse; I47.1 Supraventricular tachycardia
CPT/HCPCS: 93307

== ENCOUNTER → 2023-10-12 06:51 | Outpatient (CLI) | payer MEDICARE, SELFPAY ==
[2023-10-12 08:18] LABS: Appearance Urine UA CLEAR; Bilirubin Urine UA NEGATIVE (NEGATIVE); Color Urine UA YELLOW; Glucose Urine UA NEGATIVE (Negative); Ketones Urine UA NEGATIVE (NEGATIVE); Leukocyte Esterase Urine UA NEGATIVE (NEGATIVE); Nitrite Urine UA NEGATIVE (Negative); Occult Blood Urine UA NEGATIVE (Negative); Protein Urine UA NEGATIVE (Negative); Specific Gravity Urine UA 1.015 (1.000-1.035); pH Urine UA 5.5 (4.5-8.0)
[2023-10-12 08:19] LABS: Urine Volume 10mL (spun)
[2023-10-12 08:21] LABS: Bacteria Urine None Seen; Culture Indicated Urine Cult Not Indicated; RBC Urine None Seen (0-5/HPF); Squamous Epithelial Cell Urine None Seen (0-5/HPF); WBC Urine None Seen (0-5/HPF)
[2023-10-12 08:40] LABS: Creatinine Urine Random 142.8 mg/dL; Sodium Urine Random 145 mmol/L (30-90)
[2023-10-12 08:41] LABS: Protein (Total) Urine Random < 5 mg/dL (0-12); Protein Creatinine Ratio Urine 0.03 GRAM/24H
[2023-10-12 08:43] LABS: BUN Creatinine Ratio 17.2 (6-22); Blood Urea Nitrogen 17 mg/dL (9-20); Calcium 9.4 mg/dL (8.4-10.2); Carbon Dioxide 26 mmol/L (22-32); Chloride 108 mmol/L (98-107); Estimated Glomerular Filt Rate > 60 mL/min (>60); Glucose 85 mg/dL (80-110); HEMOLYSIS < 15 (0-50); Potassium 4.4 mmol/L (3.4-5.1); Sodium 140 mmol/L (137-145)
== END ==
LOC: LAB 06:53
PROVIDERS: Family Provider Nurse Practitioner; PCP Nurse Practitioner; Referring Provider Student in an Organized Health Care Education/Training Program; Visit Provider Student in an Organized Health Care Education/Training Program
DX: N05.9 Unspecified nephritic syndrome with unspecified morphologic changes (principal); N30.00 Acute cystitis without hematuria; R80.9 Proteinuria, unspecified; E87.1 Hypo-osmolality and hyponatremia
CPT/HCPCS: 36415; 80048; 81001; 82570; 84156; 84300

== ENCOUNTER → 2024-03-30 06:44 | Outpatient (CLI) | payer MEDICARE, SELFPAY ==
[2024-03-30 07:55] LABS: Add Manual Diff / Slide Review NO; Basophils Absolute Auto 0 /uL (0-100); Basophils Percent Auto 0.7 % (0-2); Eosinophils Absolute Auto 100 /uL (0-450); Eosinophils Percent Auto 2.1 % (2-4); Hematocrit 37.9 % (41-53); Hemoglobin 13.3 g/dL (13.5-17.5); Lymphocytes Absolute Auto 2100 /uL (1100-4500); Lymphocytes Percent Auto 39.9 % (25-40); Mean Corpuscular Hemoglobin 31.9 PG (26-34); Mean Corpuscular Volume 91.1 fL (80-100); Monocytes Absolute Auto 500 /uL (0-900); Monocytes Percent Auto 10.3 % (3-14); Neutrophils Absolute Auto 2500 /uL (1500-7000); Platelet Count 159 X10^3/uL (150-400); Red Blood Cell Count 4.16 X10^6/uL (4.5-5.9); Red Cell Distribution Width 14.5 % (11.6-14.8); White Blood Cell Count 5.3 X10^3/uL (4.5-11.0)
[2024-03-30 08:21] LABS: Hemoglobin A1C% w Est Avg Glu 4.8 % (4.0-6.0)
[2024-03-30 08:23] LABS: Creatinine Urine Random 234.31 mg/dL
[2024-03-30 08:26] LABS: Microalbumin Urine Random 5.9 mg/dL (0-1.6)
[2024-03-30 08:26] LABS: Alanine Aminotransferase 61 IU/L (<50); Albumin Globulin Ratio 1.6 (1.0-2.8); Alkaline Phosphatase 54 U/L (38-126); Aspartate Aminotransferase 46 IU/L (17-59); BUN Creatinine Ratio 15.5 (6-22); Bilirubin Total 0.8 mg/dL (0.2-1.3); Blood Urea Nitrogen 15 mg/dL (9-20); Calcium 9.1 mg/dL (8.4-10.2); Carbon Dioxide 26 mmol/L (22-32); Chloride 104 mmol/L (98-107); Cholesterol 84 mg/dL (140-199); Estimated Glomerular Filt Rate > 60 mL/min (>60); Globulin 2.5 g/dL (1.7-4.1); Glucose 87 mg/dL (80-110); HDL Cholesterol 23 mg/dL (40-60); HEMOLYSIS < 15 (0-50); LDL Cholesterol Calculated 6 mg/dL (<100); Sodium 138 mmol/L (137-145); Total Protein 6.5 g/dL (6.3-8.2); Triglycerides 277 mg/dL (35-150)
[2024-03-30 08:34] LABS: Free T3, Triiodothyronine Free 3.31 pg/mL (2.77-5.27); Free T4, Direct Thyroxine 0.71 ng/dL (0.78-2.19)
[2024-03-30 08:48] LABS: Thyroid Stimulating Hormone 2.17 uIU/mL (0.47-4.68)
[2024-03-30 09:07] LABS: Vitamin B12 191 pg/mL (239-931)
== END ==
PROVIDERS: Family Provider Nurse Practitioner; PCP Nurse Practitioner; Referring Provider Nurse Practitioner; Visit Provider Nurse Practitioner
DX: E78.1 Pure hyperglyceridemia (principal); E78.2 Mixed hyperlipidemia; I47.29 Other ventricular tachycardia; K76.0 Fatty (change of) liver, not elsewhere classified; I10 Essential (primary) hypertension; D64.9 Anemia, unspecified
CPT/HCPCS: 36415; 80053; 80061; 82043; 82570; 82607; 83036; 84439; 84443; 84481; 85025

== ENCOUNTER → 2024-06-15 12:19 | Outpatient (CLI) | payer MEDICARE, SELFPAY ==
[2024-06-15 14:22] LABS: Appearance Urine UA CLEAR; Bilirubin Urine UA NEGATIVE (NEGATIVE); Color Urine UA YELLOW; Glucose Urine UA NEGATIVE (Negative); Ketones Urine UA NEGATIVE (NEGATIVE); Leukocyte Esterase Urine UA NEGATIVE (NEGATIVE); Nitrite Urine UA NEGATIVE (Negative); Occult Blood Urine UA NEGATIVE (Negative); Protein Urine UA NEGATIVE (Negative); Specific Gravity Urine UA 1.015 (1.000-1.035)
[2024-06-15 14:24] LABS: Urine Volume 10mL (spun)
[2024-06-15 14:26] LABS: Bacteria Urine None Seen; Culture Indicated Urine Cult Not Indicated; RBC Urine None Seen (0-5/HPF); Squamous Epithelial Cell Urine None Seen (0-5/HPF); WBC Urine None Seen (0-5/HPF)
[2024-06-15 14:28] LABS: Chloride 103 mmol/L (98-107); HEMOLYSIS < 15 (0-50); Potassium 4.2 mmol/L (3.4-5.1); Sodium 136 mmol/L (137-145)
[2024-06-15 14:51] LABS: BUN Creatinine Ratio 18.9 (6-22); Blood Urea Nitrogen 18 mg/dL (9-20); Calcium 9.3 mg/dL (8.4-10.2); Carbon Dioxide 25 mmol/L (22-32); Estimated Glomerular Filt Rate > 60 mL/min (>60); Glucose 85 mg/dL (80-110)
[2024-06-15 15:34] LABS: Creatinine Urine Random 116.91 mg/dL; Protein (Total) Urine Random 6 mg/dL (0-12); Protein Creatinine Ratio Urine 0.05 GRAM/24H; Sodium Urine Random 121 mmol/L (30-90)
== END ==
PROVIDERS: Family Provider Nurse Practitioner; PCP Family Medicine; Referring Provider Student in an Organized Health Care Education/Training Program; Visit Provider Student in an Organized Health Care Education/Training Program
DX: N05.9 Unspecified nephritic syndrome with unspecified morphologic changes (principal); N30.00 Acute cystitis without hematuria; R80.9 Proteinuria, unspecified; E87.1 Hypo-osmolality and hyponatremia
CPT/HCPCS: 36415; 80048; 81001; 82570; 84156; 84300

== ENCOUNTER → 2024-09-26 10:57 | Outpatient (CLI) | payer MEDICARE, SELFPAY ==
--- NOTE | 2024-09-26 10:58 | DI.RAD.S_ITS ---
PROCEDURE: XR CHEST 2V INDICATIONS: SOB TECHNIQUE: 2 views of the chest were acquired. COMPARISON: [facility], CR, XR CHEST 2V, 12/19/2022, 14:56. FINDINGS: Surgical changes and devices: None. Lungs and pleura: Lungs are clear. No pleural effusions or pneumothorax. Mediastinum: Mediastinal contours are normal. Heart size is normal. Bones and chest wall: No suspicious bony abnormalities. Soft tissues appear unremarkable. IMPRESSION: No acute cardiopulmonary abnormality is seen. Dictated by: Darrion Zaman M.D. on 09/27/2024 at 5:06 Approved by: Darrion Zaman M.D. on 09/27/2024 at 5:08
[2024-09-26 11:44] LABS: Add Manual Diff / Slide Review NO; Basophils Absolute Auto 100 /uL (0-100); Basophils Percent Auto 1.2 % (0-2); Eosinophils Absolute Auto 100 /uL (0-450); Eosinophils Percent Auto 1.9 % (2-4); Hematocrit 38.8 % (41-53); Hemoglobin 13.4 g/dL (13.5-17.5); Lymphocytes Absolute Auto 2000 /uL (1100-4500); Lymphocytes Percent Auto 37.7 % (25-40); Mean Corpuscular HGB Conc 34.7 % (30-36); Mean Corpuscular Hemoglobin 31.6 PG (26-34); Monocytes Absolute Auto 600 /uL (0-900); Neutrophils Absolute Auto 2600 /uL (1500-7000); Neutrophils Percent Auto 48.2 % (50-75); Platelet Count 169 X10^3/uL (150-400); Red Blood Cell Count 4.26 X10^6/uL (4.5-5.9); Red Cell Distribution Width 14.4 % (11.6-14.8); White Blood Cell Count 5.4 X10^3/uL (4.5-11.0)
[2024-09-26 12:57] LABS: Vitamin B12 Reflex MMA if <400 410 pg/mL (239-931)
== END ==
PROVIDERS: Family Provider Nurse Practitioner; PCP Family Medicine; Referring Provider Family Medicine; Visit Provider Family Medicine
DX: R06.02 Shortness of breath (principal); E53.8 Deficiency of other specified B group vitamins; G47.33 Obstructive sleep apnea (adult) (pediatric)
CPT/HCPCS: 36415; 71046; 82607; 85025; 93005

== ENCOUNTER 2024-10-07 15:34 | Emergency (ER) | payer MEDICARE, SELFPAY ==
[2024-10-07 15:40] VITALS: BP 148/71; PULSE 74; RESP 16; TEMP 36.5; O2SAT 97; BMI 35.9
--- NOTE | 2024-10-07 16:01 | ED_ITS ---
HPI - Back Pain/Injury <Rosita Hanks PA-C - Last Filed: 10/07/24 17:22> General Chief Complaint: Back Pain/Injury Stated Complaint: right side lower back pain Time Seen by Provider: 10/07/24 15:59 History of Present Illness HPI Narrative: Mr. Dunbar is a pleasant 84-year-old male with a past medical history of hypertension, HYACINTH, hepatic steatosis, hyperlipidemia, atrial fibrillation not on anticoagulation who presents to the emergency department for right flank pain x1 month. Patient denies any precipitating injury and states that pain is exacerbated by movement, going from a sitting to standing position, are going over bumps in the car. He went to the walk-in clinic and had a negative urinalysis but was sent to the emergency department for further evaluation of potential renal pathology. Patient denies taking anything for the pain but states that pain has been getting progressively worse throughout the last month. He denies any dysuria, hematuria, abdominal pain, nausea, vomiting, diarrhea, constipation, fevers, chills, chest pain, shortness of breath. He does not want any pain medication at this time. Related Data Home Medications Medication Instructions Recorded Confirmed vitamins A,C,C-oiuy-wpcztd 4,296 1 cap PO QAM AND QPM 02/03/20 10/07/24 mcg-226 mg-90 mg capsule (PreserVision AREDS) lisinopril 10 1 tab PO DAILY 09/26/24 10/07/24 mg-hydrochlorothiazide 12.5 mg tablet rosuvastatin 5 mg tablet 5 mg PO DAILY 09/26/24 10/07/24 Previous Rx's Medication Instructions Recorded omega-3 fatty acids 1,000 mg 1,000 mg PO TID #270 caps 06/11/22 capsule doxazosin 4 mg tablet 4 mg PO BID #180 tabs 02/24/24 diltiazem HCl 120 mg 120 mg PO DAILY #90 caps 04/27/24 capsule,extended release 24 hr Allergies Allergy/AdvReac Type Severity Reaction Status Date / Time No Known Drug Allergies Allergy Verified 10/07/24 15:14 Review of Systems <JON Vences Last Filed: 10/07/24 17:22> Review of Systems ROS Unobtainable: All systems reviewed & are unremarkable except as noted in HPI and below Patient History <Rosita Hanks PA-C - Last Filed: 10/07/24 17:22> Medical History Atrial fibrillation (~2013) Hearing loss Hypertriglyceridemia Hyperlipidemia, mixed First degree AV block Ventricular tachycardia, paroxysmal Pre-syncope PSVT (paroxysmal supraventricular tachycardia) Hepatic steatosis Microalbuminuria Elevated triglycerides with high cholesterol Nerve root compression Facet arthropathy, lumbosacral Right sciatic nerve pain Anemia Benign neoplasm umbilicus skin Renal calcification Right low back pain Parapelvic renal cyst Left knee pain Elevated LFTs Toenail fungus Macular degeneration Right-sided thoracic back pain Obstructive sleep apnea (08/09/14) Nightmares High triglycerides (Unknown) Spinal stenosis (Unknown) Osteoarthritis (Unknown) Shoulder pain (Unknown) Carpal tunnel syndrome (Unknown) Rheumatic fever (Unknown) Mumps (Unknown) Measles (Unknown) Chickenpox (Unknown) 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) History of colonic polyps (10/13/11) Benign prostatic hyperplasia (10/13/11) Cervical spinal stenosis Surgical History History of cervical discectomy (10/2016) History of cataract removal with insertion of prosthetic lens History of carpal tunnel repair Status post arthroscopy Family History Brother CAD (coronary artery disease) Obesity Social History household members: spouse Smoking Status: Former smoker second hand exposure: No alcohol intake: current substance use type: does not use Smoking Status: Former smoker alcohol intake frequency: holidays/special occasions only Exam <Rosita Hanks PA-C - Last Filed: 10/07/24 17:22> Narrative Exam Narrative: GENERAL: 84 year old patient appears stated age. Obese patient, in no acute distress. HEAD: Atraumatic. Normocephalic. NECK: Trachea midline. Cervical ROM intact. CARDIOVASCULAR: Regular rate and rhythm. RESPIRATORY: ?Nonlabored respirations. ?Speaking in clear, full sentences. ?Clear to auscultation. GASTROINTESTINAL: Abdomen soft, non-tender, nondistended. Protuberant. EXTREMITIES: No edema or joint tenderness. BACK: No tenderness to palpation in the CVA region or overlying the bony spine. He does have subjective pain in the right lumbar and thoracic region. This pain is significant when the patient goes from a sitting to standing position independently. NEURO: AOx3. ?Clear speech. ?Moves all 4 extremities appropriately. SKIN: No rash or erythema of visible areas Initial Vital Signs Initial Vital Signs: Vital Signs Temperature 97.7 F 10/07/24 15:40 Pulse Rate 74 10/07/24 15:40 Respiratory Rate 16 10/07/24 15:40 Blood Pressure 148/71 H 10/07/24 15:40 Pulse Oximetry 97 10/07/24 15:40 Oxygen Delivery Method Room Air 10/07/24 15:40 <Mabel Fletcher DO - Last Filed: 10/08/24 22:45> Initial Vital Signs Initial Vital Signs: Vital Signs Temperature 97.7 F 10/07/24 15:40 Pulse Rate 74 10/07/24 15:40 Respiratory Rate 16 10/07/24 15:40 Blood Pressure 148/71 H 10/07/24 15:40 Pulse Oximetry 97 10/07/24 15:40 Oxygen Delivery Method Room Air 10/07/24 15:40 Course <Rosita Hanks PA-C - Last Filed: 10/07/24 17:22> Orders Ordered: Discontinued Medications Ketorolac Tromethamine (Ketorolac 30 Mg/Ml Vial) 15 mg IV NOW ONE Stop: 10/07/24 17:14 Last Admin: 10/07/24 17:17 Dose: 15 mg Documented By: LINO Lidocaine (Lidocaine 5% Patch) 1 each TOP NOW ONE Stop: 10/07/24 16:12 Last Admin: 10/07/24 16:31 Dose: 1 each Documented By: LINO Vital Signs Vital signs: Vital Signs - 8 hr 10/07/24 15:40 Temperature 97.7 F Pulse Rate 74 Respiratory Rate 16 Blood Pressure 148/71 H Pulse Oximetry 97 Oxygen Delivery Method Room Air <Mabel Fletcher DO - Last Filed: 10/08/24 22:45> Orders Ordered: Discontinued Medications Ketorolac Tromethamine (Ketorolac 30 Mg/Ml Vial) 15 mg IV NOW ONE Stop: 10/07/24 17:14 Last Admin: 10/07/24 17:17 Dose: 15 mg Documented By: LINO Lidocaine (Lidocaine 5% Patch) 1 each TOP NOW ONE Stop: 10/07/24 16:12 Last Admin: 10/07/24 16:31 Dose: 1 each Documented By: LINO Vital Signs Vital signs: Vital Signs - 8 hr 10/07/24 15:40 Temperature 97.7 F Pulse Rate 74 Respiratory Rate 16 Blood Pressure 148/71 H Pulse Oximetry 97 Oxygen Delivery Method Room Air MDM - Back Pain/Injury <Rosita Hanks PA-C - Last Filed: 10/07/24 17:22> Medical Records Attestation: I reviewed the patient's medical records. Medical records narrative: negative POC UA at [facility] today Lab Data 10/07/24 16:20 10/07/24 16:20 Labs: Lab Results 10/07/24 Range/Units 16:20 WBC 4.9 (4.5-11.0) X10^3/uL RBC 4.24 L (4.5-5.9) X10^6/uL Hgb 13.6 (13.5-17.5) g/dL Hct 38.4 L (41-53) % MCV 90.5 (80-100) fL MCH 32.2 (26-34) PG MCHC 35.6 (30-36) % RDW 14.4 (11.6-14.8) % Plt Count 161 (150-400) X10^3/uL Neut % (Auto) 46.2 L (50-75) % Lymph % (Auto) 40.4 H (25-40) % [place] % (Auto) 10.3 (3-14) % Eos % (Auto) 2.4 (2-4) % Baso % (Auto) 0.7 (0-2) % Neut # (Auto) 2300 (3774-9478) /uL Lymph # (Auto) 2000 (4105-7751) /uL [place] # (Auto) 500 (0-900) /uL Eos # (Auto) 100 (0-450) /uL Baso # (Auto) 0 (0-100) /uL Sodium 137 (137-145) mmol/L Potassium 3.6 (3.4-5.1) mmol/L Chloride 104 (98-107) mmol/L Carbon Dioxide 25 (22-32) mmol/L BUN 16 (9-20) mg/dL Creatinine 0.98 (0.66-1.25) mg/dL Estimated GFR > 60 (>60) mL/min BUN/Creatinine Ratio 16.3 (6-22) Glucose 106 (80-110) mg/dL Calcium 9.1 (8.4-10.2) mg/dL Total Bilirubin 0.6 (0.2-1.3) mg/dL AST 43 (17-59) IU/L ALT 54 H (<50) IU/L Alkaline Phosphatase 57 (38-126) U/L Total Protein 7.1 (6.3-8.2) g/dL Albumin 4.2 (3.5-5.0) g/dL Globulin 2.9 (1.7-4.1) g/dL Albumin/Globulin Ratio 1.4 (1.0-2.8) MDM Narrative Medical decision making narrative: 84-year-old male with a past medical history of hypertension, HYACINTH, hepatic steatosis, hyperlipidemia, atrial fibrillation not on anticoagulation who presents to the emergency department for right flank pain x1 month. Differential diagnosis includes but is not limited to muscle strain, muscle sprain, spinal stenosis, lumbar radiculopathy, nephrolithiasis, ureterolithiasis, pyelonephritis, UTI, etc. On exam the patient is in no acute distress, nontoxic appearing, vital signs appropriate. He has no tenderness to palpation of the abdomen or the back however he does have subjective pain in the right lumbar/thoracic region. He has not having any symptoms of lumbar radiculopathy. Negative UA the walk-in clinic. We will obtain CBC, CMP, CT KUB for further evaluation. I did recommend treating patient's pain with Toradol as this could be helpful for both a kidney stone or a musculoskeletal problem however he declines instead we will just treat with topical Lidoderm. CT KUB reveals no obstructing stones or hydronephrosis. There is cholelithiasis without wall thickening or adjacent fat stranding to suggest cholecystitis. There is degenerative disc disease of the lumbar spine and diffuse idiopathic skeletal hyperostosis. I discussed all incidental findings with the patient, printed a copy of his report and provided him with it. UA negative for blood or infection, normal WBC count 4.9, normal platelets 161. Baseline renal function with a BUN of 16 and a creatinine of 0.98. Glucose 106. ALT very slightly elevated at 54 remainder of LFTs are normal. At this time I do suspect the patient's symptoms are likely related to his underlying degenerative disc disease and DISH. Reports that he is suffered from lumbar spasms in the past and muscle relaxers do not help him but Toradol does. Therefore we will treat him with a dose of Toradol in the emergency department, we then discussed and he would like to continue using aovm-uoz-hmicjaw ibuprofen and acetaminophen at home in addition to yutz-uoz-jnqgmob lidocaine patches that he has at home. Recommended gentle stretching, heat therapy, follow up with primary care doctor for further evaluation potential physical therapy. Patient verbalized understanding of all information, vital signs stable, ambulatory, stable for discharge home. <Mabel Fletcher DO - Last Filed: 10/08/24 22:45> Lab Data Labs: Lab Results 10/07/24 Range/Units 16:20 WBC 4.9 (4.5-11.0) X10^3/uL RBC 4.24 L (4.5-5.9) X10^6/uL Hgb 13.6 (13.5-17.5) g/dL Hct 38.4 L (41-53) % MCV 90.5 (80-100) fL MCH 32.2 (26-34) PG MCHC 35.6 (30-36) % RDW 14.4 (11.6-14.8) % Plt Count 161 (150-400) X10^3/uL Neut % (Auto) 46.2 L (50-75) % Lymph % (Auto) 40.4 H (25-40) % [place] % (Auto) 10.3 (3-14) % Eos % (Auto) 2.4 (2-4) % Baso % (Auto) 0.7 (0-2) % Neut # (Auto) 2300 (3343-7199) /uL Lymph # (Auto) 2000 (8113-5442) /uL [place] # (Auto) 500 (0-900) /uL Eos # (Auto) 100 (0-450) /uL Baso # (Auto) 0 (0-100) /uL Sodium 137 (137-145) mmol/L Potassium 3.6 (3.4-5.1) mmol/L Chloride 104 (98-107) mmol/L Carbon Dioxide 25 (22-32) mmol/L BUN 16 (9-20) mg/dL Creatinine 0.98 (0.66-1.25) mg/dL Estimated GFR > 60 (>60) mL/min BUN/Creatinine Ratio 16.3 (6-22) Glucose 106 (80-110) mg/dL Calcium 9.1 (8.4-10.2) mg/dL Total Bilirubin 0.6 (0.2-1.3) mg/dL AST 43 (17-59) IU/L ALT 54 H (<50) IU/L Alkaline Phosphatase 57 (38-126) U/L Total Protein 7.1 (6.3-8.2) g/dL Albumin 4.2 (3.5-5.0) g/dL Globulin 2.9 (1.7-4.1) g/dL Albumin/Globulin Ratio 1.4 (1.0-2.8) Discharge Plan Departure Patient Disposition: Home Clinical Impression: DISH (diffuse idiopathic skeletal hyperostosis), Renal cyst DDD (degenerative disc disease), lumbar Qualifiers: Disc-related pain type: discogenic back pain only Qualified Code(s): M51.360 - Other intervertebral disc degeneration, lumbar region with discogenic back pain only Cholelithiasis Qualifiers: Cholelithiasis location: gallbladder Cholecystitis presence: without cholecystitis Biliary obstruction: without biliary obstruction Qualified Code(s): K80.20 - Calculus of gallbladder without cholecystitis without obstruction Instructions: DI for Low Back Pain Activity Restrictions/Additional Instructions: Dear Dunbar, Thank you for coming to the emergency department. Today you were evaluated for right-sided low back pain. We obtained blood work and a CT scan. At this time there are no signs of kidney infection or kidney stone. You do have lots of arthritis of the spine which is likely contributing to your pain. You were treated with a topical lidocaine patch and a Toradol injection. I would like you to use ibuprofen and/or Tylenol at home for pain in addition to topical numbing patches, heat therapy, gentle stretching. Please follow up with your primary care doctor to further discuss the abnormal findings on your CT scan today including gallstones and kidney cysts. Please return to the emergency department if you develop any new or worsening symptoms such as numbness, tingling, weakness, fevers, burning with urination, or any other concerns. Please take Ibuprofen (Motrin/Advil) or Acetaminophen (Tylenol) for pain. These are available over the counter. You may take Ibuprofen 600 mg every 8 hours with food for pain. You may also take Acetaminophen 650 mg every 4-6 hours for pain. Do not exceed 3000 mg of Tylenol a day as this can cause liver damage. Do not drink alcohol with either of these medications. Please follow up with your primary care doctor within the next 2-3 days for ER follow-up. (If you do not have a PCP you can call [phone]. ?to schedule an appointment with an [facility] Primary Care Provider) IF YOU DEVELOP ANY NEW OR WORSENING SYMPTOMS, RETURN TO THE ER! Please read the attached instructions, they highlight more specific treatments and interventions for you at home. Thank you for letting me participate in your care, Rosita Hanks PA-C Prescriptions: No Action doxazosin 4 mg tablet 4 mg PO BID Qty: 180 3RF Rx Instructions: Take 1 tab twice per day until stones pass diltiazem HCl 120 mg capsule,extended release 24hr 120 mg PO DAILY Qty: 90 3RF Rx Instructions: Take 1 cap daily rosuvastatin 5 mg tablet 5 mg PO DAILY Rx Instructions: TAKE 1 TABLET DAILY FOR ELEVATED TRIGLYCERIDES lisinopril-hydrochlorothiazide 10-12.5 mg tablet 1 tab PO DAILY PreserVision AREDS 14,320-226-200 qgzx-[id number]-[id number] capsule 1 cap PO QAM AND QPM Hold Instructions: on doxy omega-3 fatty acids 1,000 mg capsule 1,000 mg PO TID Qty: 270 3RF Rx Instructions: Take 1 capsule 3x/day Referrals: Michelle Ruiz DO [Primary Care Provider] - Stand Alone Forms: Patient Portal/API/Survey ED Sign-out <Mabel Fletcher DO - Last Filed: 10/08/24 22:45> Cosign ED Attending Costatiature Attestation: I was available for consultation.
--- NOTE | 2024-10-07 16:11 | DI.CT.S_ITS ---
PROCEDURE: CT KIDNEY URETER BLADDER (KUB) INDICATIONS: R flank / low back pain x 1 month TECHNIQUE: Axial sections were acquired from the lung bases to the pubic symphysis. Coronal and sagittal reformats were performed. For radiation dose reduction, the following was used: automated exposure control, adjustment of mA and/or kV according to patient size. COMPARISON: [facility], CT, CT KIDNEY URETER BLADDER (KUB), 06/18/2022, 14:18. FINDINGS: Image quality: Diagnostic. Lower Chest: No significant findings. URINARY: Right Kidney: No nephrolithiasis. Renal sinus cysts. Stable hyperattenuating cystic lesion along the superior pole, likely a small hemorrhagic cyst measuring 9 millimeters. No hydronephrosis. Right Ureter: No hydroureter. Left Kidney: Renal sinus cysts. A few punctate nonobstructing nephrolithiasis. No hydronephrosis. Left Ureter: No hydroureter. Bladder: Normal wall thickness. No stones. ABDOMEN: Liver: No contour-deforming solid mass. Gallbladder: Cholelithiasis without wall thickening or adjacent fat stranding to suggest acute cholecystitis. Biliary ducts: No biliary dilation. Pancreas: No ductal dilation. Spleen: Size is within normal limits. Adrenal Glands: No adrenal nodules. Stomach and Bowel: Normal colonic caliber, without significant wall thickening. Colonic diverticulosis without evidence of diverticulitis. Peritoneum: No abnormal intraperitoneal fluid. No free air. Ventral Wall: No hernia. Abdominal Nodes: No enlarged retroperitoneal or mesenteric lymph nodes. Vessels: Aorta and inferior vena cava are normal in size. PELVIS: Pelvic Organs: Unremarkable. Pelvic Nodes: Unremarkable. Miscellaneous: No inguinal hernias are seen. Bones: Degenerative disc disease of the lumbar spine. Diffuse idiopathic skeletal hyperostosis. IMPRESSION: No obstructing stones or hydronephrosis. Cholelithiasis without wall thickening or adjacent fat stranding to suggest acute cholecystitis. Dictated by: Wilberto Abdi M.D. on 10/07/2024 at 16:51 Approved by: Wilberto Abdi M.D. on 10/07/2024 at 16:53
[2024-10-07] MEDS: LIDOCAINE 5% PATCH 1 EACH TOP (16:31)
[2024-10-07 16:37] LABS: Add Manual Diff / Slide Review NO; Basophils Absolute Auto 0 /uL (0-100); Basophils Percent Auto 0.7 % (0-2); Eosinophils Absolute Auto 100 /uL (0-450); Eosinophils Percent Auto 2.4 % (2-4); Hematocrit 38.4 % (41-53); Hemoglobin 13.6 g/dL (13.5-17.5); Lymphocytes Absolute Auto 2000 /uL (1100-4500); Lymphocytes Percent Auto 40.4 % (25-40); Mean Corpuscular HGB Conc 35.6 % (30-36); Mean Corpuscular Hemoglobin 32.2 PG (26-34); Mean Corpuscular Volume 90.5 fL (80-100); Monocytes Absolute Auto 500 /uL (0-900); Monocytes Percent Auto 10.3 % (3-14); Neutrophils Absolute Auto 2300 /uL (1500-7000); Neutrophils Percent Auto 46.2 % (50-75); Platelet Count 161 X10^3/uL (150-400); Red Blood Cell Count 4.24 X10^6/uL (4.5-5.9); Red Cell Distribution Width 14.4 % (11.6-14.8); White Blood Cell Count 4.9 X10^3/uL (4.5-11.0)
[2024-10-07 16:49] LABS: Alanine Aminotransferase 54 IU/L (<50); Albumin 4.2 g/dL (3.5-5.0); Albumin Globulin Ratio 1.4 (1.0-2.8); Alkaline Phosphatase 57 U/L (38-126); Aspartate Aminotransferase 43 IU/L (17-59); BUN Creatinine Ratio 16.3 (6-22); Bilirubin Total 0.6 mg/dL (0.2-1.3); Blood Urea Nitrogen 16 mg/dL (9-20); Calcium 9.1 mg/dL (8.4-10.2); Carbon Dioxide 25 mmol/L (22-32); Chloride 104 mmol/L (98-107); Estimated Glomerular Filt Rate > 60 mL/min (>60); Globulin 2.9 g/dL (1.7-4.1); Glucose 106 mg/dL (80-110); HEMOLYSIS < 15 (0-50); Potassium 3.6 mmol/L (3.4-5.1); Sodium 137 mmol/L (137-145); Total Protein 7.1 g/dL (6.3-8.2)
[2024-10-07] MEDS: KETOROLAC 30 MG/ML VIAL 15 MG IV (17:17)
[2024-10-07 17:25] VITALS: BP 131/67; PULSE 69; RESP 16; O2SAT 97
== END 2024-10-07 17:31 | disposition home or self-care (01) ==
PROVIDERS: Emergency Provider Physician Assistant; Family Provider Nurse Practitioner; PCP Family Medicine
DX: M51.360 Other intervertebral disc degeneration, lumbar region with discogenic back pain only (principal); K80.20 Calculus of gallbladder without cholecystitis without obstruction; N28.1 Cyst of kidney, acquired; M48.16 Ankylosing hyperostosis [Forestier], lumbar region; E66.9 Obesity, unspecified; Z68.35 Body mass index [BMI] 35.0-35.9, adult
CPT/HCPCS: 74176; 80053; 85025; 96374; 99283; 99284; J1885

== ENCOUNTER → 2024-10-09 12:17 | Outpatient (CLI) | payer MEDICARE, SELFPAY ==
--- NOTE | 2024-10-09 12:20 | DI.ECHO.S_ITS ---
[facility]+ [facility] : : [id number] : [place] : : [id number] : : Phone: [phone] Echocardiogram Report + + :Name: CHICO VARGAS Study Date: 10/09/2024 Height: 70 in : :Hospital ReadingLocation: Weight: 250 lb : : Gender: Male BSA: 2.3 m2 : :: 1940 Age: 84 yrs BP: 103/66 mmHg: :Reason For Study: HYPERTENSION : :Ordering Physician: JENSEN, : :RICK Performed By: kB Dumont : :Referring: RICK STYLES : + + Interpretation Summary The left ventricle is normal in size. The left ventricular ejection fraction is normal. The ejection fraction is estimated to be 55-60%. There has been no significant change in LVEF since the previous exam. Mild- moderate concentric LVH. Unchanged. The right ventricle is normal in size and function. No significant valvular pathology seen. The IVC is of normal diameter and collapses greater than 50% with a sniff. This suggests a low right atrial pressure of 3 mm Hg. Procedure: A two-dimensional transthoracic echocardiogram with color flow and Doppler was performed. The study quality was technically good. Comparison is made with the echocardiogram of 03/23/2023. The patient was in normal sinus rhythm during the exam. Left Ventricle: The left ventricle is normal in size. Left ventricular wall thickness is mild-moderately increased. There is no thrombus. The ejection fraction is estimated to be 55-60%. The left ventricular ejection fraction is normal. There has been no significant change since the previous exam. There are no focal wall motion abnormalities. MV E/A: 1.1 Med Peak E' Benigno: 5.9 cm/sec E/E' med: 14.3. Right Ventricle: The right ventricle is normal in size and function. Atria: The left atrial size is normal. There has been no significant change since the previous study. Right atrial size is normal. There is no Doppler evidence for an interatrial shunt. Mitral Valve: The mitral valve leaflets appear normal. There is no evidence of stenosis, fluttering, or prolapse. There is trace mitral regurgitation. Aortic Valve: The aortic valve is trileaflet. The aortic valve is mildly calcified. The aortic valve opens well. No aortic regurgitation is present. Tricuspid Valve: The tricuspid valve leaflets are thin and pliable. There is trace tricuspid regurgitation. Pulmonary artery pressures cannot be estimated because of the lack of a measurable TR jet velocity. Pulmonic Valve: The pulmonic valve is not well seen, but is grossly normal. There is no pulmonic valvular regurgitation. Great Vessels: The aortic root is normal size. The ascending aorta could not be visualized. The pulmonary artery is normal size. The IVC is of normal diameter and collapses greater than 50% with a sniff. This suggests a low right atrial pressure of 3 mm Hg. Pericardium/ Pleura There is no pericardial effusion. There is no pleural effusion. MMode/2D Measurements & Calculations LVIDd: 5.3 cm LVOT diam: 2.3 cm LVIDs: 3.5 cm Ao root diam: 3.6 cm FS: 33.5 % EPSS: 0.68 cm IVSd: 1.5 cm LVPWd: 1.4 cm LV tompkins. diameter/BSA (cm/m^2): 2.3 LV sys. diameter/BSA (cm/m^2): 1.5 LA A2 area: 21.3 cm2 RA long axis: 4.9 cm LA A4 area: 23.7 cm2 RA area: 12.3 cm2 LA length (vol): 6.4 cm RA vol: 26.2 ml LA vol: 66.6 ml RA : 11.4 ml/m2 LA vol index: 29.0 ml/m2 IVC diam: 1.4 cm RVD1 (basal): 3.9 cm RVD2 (mid): 3.2 cm TAPSE: 3.0 cm Doppler Measurements & Calculations Ao V2 max: 137.6 cm/sec LVOT Max Benigno: 104.8 cm/sec Ao V2 mean: 102.5 cm/sec LV V1 max P.4 mmHg Ao max P.6 mmHg LV V1 VTI: 22.0 cm Ao mean P.6 mmHg TAMARA(I,D): 3.0 cm2 Ao V2 VTI: 30.8 cm TAMARA(V,D): 3.2 cm2 sev ratio: 0.71 TAMARA indexed to BSA (cm^2/m^2): 1.3 MV E max benigno: 84.1 cm/sec PA V2 max: 83.4 cm/sec MV A max benigno: 73.6 cm/sec PA V2 mean: 56.8 cm/sec MV E/A: 1.1 PA mean P.5 mmHg Med Peak E' Benigno: 5.9 cm/sec PA pr(Accel): 13.9 mmHg E/E' med: 14.3 Lat Peak E' Benigno: 6.6 cm/sec E/E' lat: 12.8 E/e' average: 13.5 MV dec time: 0.21 sec SV(LVOT): 91.8 ml Reading Physician:12:56 PM
== END ==
PROVIDERS: Family Provider Nurse Practitioner; PCP Family Medicine; Referring Provider Family Medicine; Visit Provider Family Medicine
DX: I77.810 Thoracic aortic ectasia (principal); I10 Essential (primary) hypertension; E78.2 Mixed hyperlipidemia; I44.0 Atrioventricular block, first degree; I47.29 Other ventricular tachycardia; I48.91 Unspecified atrial fibrillation; I70.0 Atherosclerosis of aorta
CPT/HCPCS: 93306

== ENCOUNTER → 2025-02-23 11:35 | Outpatient (CLI) | payer MEDICARE, SELFPAY ==
[2025-02-23 12:06] LABS: Appearance Urine UA CLEAR; Bilirubin Urine UA NEGATIVE (NEGATIVE); Color Urine UA YELLOW; Glucose Urine UA NEGATIVE (Negative); Ketones Urine UA TRACE (NEGATIVE); Leukocyte Esterase Urine UA NEGATIVE (NEGATIVE); Nitrite Urine UA NEGATIVE (Negative); Occult Blood Urine UA NEGATIVE (Negative); Protein Urine UA NEGATIVE (Negative); Specific Gravity Urine UA 1.015 (1.000-1.035); Urobilinogen Urine UA 2.0 E.U./dL (0.2); pH Urine UA 6.0 (4.5-8.0)
[2025-02-23 12:16] LABS: Culture Indicated Urine Cult Not Indicated
[2025-02-23 12:56] LABS: Protein (Total) Urine Random 10 mg/dL (0-12); Protein Creatinine Ratio Urine 0.07 GRAM/24H
[2025-02-23 13:00] LABS: Blood Urea Nitrogen 18 mg/dL (9-20); Calcium 9.4 mg/dL (8.4-10.2); Carbon Dioxide 24 mmol/L (22-32); Chloride 103 mmol/L (98-107); Estimated Glomerular Filt Rate > 60 mL/min (>60); Glucose 85 mg/dL (70-99); HEMOLYSIS < 15 (0-50); Potassium 4.2 mmol/L (3.4-5.1); Sodium 137 mmol/L (137-145)
== END ==
PROVIDERS: Family Provider Nurse Practitioner; PCP Family Medicine; Referring Provider Family Medicine; Visit Provider Student in an Organized Health Care Education/Training Program
DX: E87.1 Hypo-osmolality and hyponatremia (principal); N05.9 Unspecified nephritic syndrome with unspecified morphologic changes; N30.00 Acute cystitis without hematuria; R80.9 Proteinuria, unspecified
CPT/HCPCS: 36415; 80048; 81001; 82570; 84156; 84300

== ENCOUNTER → 2025-02-27 14:23 | Outpatient (CLI) | payer MEDICARE, SELFPAY ==
--- NOTE | 2025-02-27 14:25 | DI.RAD.S_ITS ---
PROCEDURE: XR HIP W PEL IF DONE LT 2V INDICATIONS: worsening left hip/knee pain TECHNIQUE: AP pelvis with lateral view(s) of the left hip(s). COMPARISON: [facility], , XR HIP W PEL IF DONE RT 2V, 02/25/2022, 9:29. FINDINGS: Bones: No fractures or dislocations. Juwj-bt-hrutshhl bilateral hip joint osteoarthritic changes are seen. No evidence of avascular necrosis of femoral head. Pelvic ring appears intact. No suspicious bony lesions. Soft tissues: The visualized bowel gas pattern is normal. No suspicious soft tissue calcifications. IMPRESSION: No acute left hip fracture or dislocation. Vvqg-[id number] bilateral hip joint osteoarthritis. No evidence of avascular necrosis of femoral heads. Dictated by: Nick Hubbard M.D. on 02/27/2025 at 17:37 Approved by: Nick Hubbard M.D. on 02/27/2025 at 17:38
--- NOTE | 2025-02-27 14:25 | DI.RAD.S_ITS ---
PROCEDURE: XR KNEE LT 3V INDICATIONS: worsening left hip/knee pain TECHNIQUE: 3 views of the knee were acquired. COMPARISON: [facility], , XR KNEE LT 3V, 06/19/2020, 15:27. FINDINGS: Bones: No fractures or dislocations. Khbu-xx-wdkwcmtr tricompartmental osteoarthritis is seen most notably in medial femoral tibial compartment. No significant patellar subluxation. No suspicious bony lesions. Soft tissues: Small suprapatella joint effusion. No suspicious soft tissue calcifications. IMPRESSION: No acute left knee fracture or dislocation. Oqwf-zn-fdiqzuak tricompartmental osteoarthritis more notably in medial femoral tibial compartment not significantly changed from prior study. Small suprapatellar joint effusion. Dictated by: Nick Hubbard M.D. on 02/27/2025 at 17:38 Approved by: Nick Hubbard M.D. on 02/27/2025 at 17:39
== END ==
PROVIDERS: Family Provider Nurse Practitioner; PCP Family Medicine; Referring Provider Family Medicine; Visit Provider Family Medicine
DX: M25.559 Pain in unspecified hip (principal); G89.29 Other chronic pain; M25.562 Pain in left knee; Z68.37 Body mass index [BMI] 37.0-37.9, adult; M17.12 Unilateral primary osteoarthritis, left knee; M25.462 Effusion, left knee; M16.0 Bilateral primary osteoarthritis of hip
CPT/HCPCS: 73502; 73562

== ENCOUNTER → 2025-04-10 | Outpatient (CLI) | payer MEDICARE, SELFPAY ==
--- NOTE | 2025-04-21 18:23 | DI.NM.S_ITS ---
DATE OF SERVICE: 04/10/2025 PHARMACOLOGICAL PERFUSION STUDY INDICATIONS: Shortness of breath, paroxysmally atrial fibrillation, hypertension, and hyperlipidemia. RADIOPHARMACEUTICAL: 25 millicurie technetium-99m Myoview IV was injected at stress and 24.7 millicurie technetium-99m Myoview IV was injected at rest. CARDIAC STRESS: The patient underwent IV Lexiscan perfusion study under the supervision of an attending staff using standard intravenous Lexiscan as per protocol. The patient remained hemodynamically stable. 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 During stress, no new convincing ischemic changes. No new significant arrhythmias. No chest pain. Had minimal dyspnea. RAW DATA: There is increased subdiaphragmatic activity. Diaphragmatic shadow is seen. The patient's weight is 260 pounds. Breast shadow was seen.. Gated study resting LV ejection fraction 69% and stress LV ejection fraction 70%. Resting end-diastolic volume 124 mL. TID ratio 0.95, which is within normal limits. MYOCARDIAL PERFUSION SCAN: Stress supine, resting supine, and stress prone images were compared to each other. Stress supine and resting supine images revealed moderate size, moderately decreased perfusion of inferior wall extending into the inferior apex which got significantly improved during stress prone images suggestive of diaphragmatic tissue attenuation artifact. No convincing ischemia infarction. CONCLUSION: I will call this study a normal myocardial perfusion study with evidence of diaphragmatic tissue attenuation artifact which got resolved during stress prone images as stated above. Resting LV ejection fraction 69% and stress LV ejection fraction 70% without any significant wall motion abnormalities. 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 No ischemic EKG changes or new arrhythmias. No chest pain. Overall, low-risk myocardial perfusion scan. Brett Dunbar - RESERVOIR ENGINEERING CONSULTANT/fn/[employer]PATCHER doc#: [id number]/job#: [id number] dd: 04/21/2025 16:40:00 dt: 04/21/2025 18:07:00 DICTATING MD/COPIES TO: Eddie Cedillo MD COPIES MNE: MARCELLO;
== END ==
PROVIDERS: Family Provider Nurse Practitioner; PCP Family Medicine; Referring Provider Internal Medicine; Visit Provider Internal Medicine
DX: I48.0 Paroxysmal atrial fibrillation (principal); R06.02 Shortness of breath; I10 Essential (primary) hypertension; E78.5 Hyperlipidemia, unspecified
CPT/HCPCS: 78452; 93017; A9502; J2785

== ENCOUNTER → 2025-04-27 07:02 | Outpatient (CLI) | payer MEDICARE, SELFPAY ==
[2025-04-27 08:43] LABS: Cholesterol 99 mg/dL (140-199); HDL Cholesterol 31 mg/dL (40-60); Triglycerides 184 mg/dL (35-150)
== END ==
PROVIDERS: Family Provider Nurse Practitioner; PCP Family Medicine; Referring Provider Family Medicine; Visit Provider Internal Medicine
DX: E78.5 Hyperlipidemia, unspecified (principal)
CPT/HCPCS: 36415; 80061